=== PATIENT | male | born 1965 | race African-American/Black ===

== ENCOUNTER 2016-11-20 20:12 | Inpatient (IN) | payer BC ==
[2016-11-20 20:41] LABS: ABSOLUTE BASOPHILS # (AUTO) 0.1 10^3/uL (0.0-0.2); ABSOLUTE EOSINOPHILS # (AUTO) 0.2 10^3/uL (0.0-0.6); ABSOLUTE LYMPHOCYTES (AUTO) 1.3 10^3/uL (0.5-4.7); ABSOLUTE MONOCYTES (AUTO) 0.5 10^3/uL (0.1-1.4); ABSOLUTE NEUT (AUTO) 5.3 10^3/uL (1.7-8.2); BASOPHILS % (AUTO) 0.8 % (0-2); EOSINOPHILS % (AUTO) 2.9 % (0-6); HEMATOCRIT 32.1 % (37.9-51.0); HEMOGLOBIN 10.7 g/dL (13.5-17.0); LYMPHOCYTES % (AUTO) 18.2 % (13-45); MEAN CORPUSCULAR HEMOGLOBIN 31.5 pg (27.0-33.4); MEAN CORPUSCULAR HGB CONC 33.5 g/dL (32.0-36.0); MEAN CORPUSCULAR VOLUME 94 fl (80-97); MONOCYTES % (AUTO) 7.1 % (3-13); RED BLOOD COUNT 3.41 10^6/uL (4.35-5.55); RED CELL DISTRIBUTION WIDTH 13.8 % (11.5-14.0); WHITE BLOOD COUNT 7.4 10^3/uL (4.0-10.5)
[2016-11-20 20:52] LABS: ALANINE AMINOTRANSFERASE 65 U/L (21-72); ALBUMIN 3.3 g/dL (3.5-5.0); ALKALINE PHOSPHATASE 98 U/L (38-126); ANION GAP 10 (5-19); ASPARTATE AMINO TRANSFERASE 47 U/L (17-59); BILIRUBIN,TOTAL 0.6 mg/dL (0.2-1.3); BLOOD UREA NITROGEN 35 mg/dL (7-20); CALCIUM 8.9 mg/dL (8.4-10.2); CARBON DIOXIDE 25 mmol/L (22-30); CHLORIDE 105 mmol/L (98-107); CREATINE KINASE 114 U/L (55-170); CREATININE RESULT 3.71 mg/dL (0.52-1.25); GLUCOSE 97 mg/dL (75-110); POTASSIUM 3.6 mmol/L (3.6-5.0); SODIUM 140.1 mmol/L (137-145); TOTAL PROTEIN 6.1 g/dL (6.3-8.2)
[2016-11-20] MEDS ORDERED: NITROGLYCERIN/D5W 250 ML IV PRN (20:52)
--- NOTE | 2016-11-20 20:53 | ER Document Report ---
ED Respiratory Problem - General Chief Complaint: Breathing Difficulty Stated Complaint: SHORTNESS OF BREATH Time seen by provider: 20:53 Mode of Arrival: Ambulatory Information source: Patient TRAVEL OUTSIDE OF THE [place] IN LAST 30 DAYS: No - HPI Patient complains to provider of: Short of breath Onset: Other - 2-3 days Duration: Worse/persistent Quality of pain: No pain Short of Breath: Moderate Chest pain/discomfort: Tightness Cough: Productive Sputum amount: Small Sputum color: Clear Sputum consistency: Mucoid Associated symptoms: Difficulty breathing, Extertional dyspnea, Short of breath Similar symptoms previously: Yes Recently seen / treated by doctor: Yes Notes: Patient is a 51-year-old male with a history of hypertension, chronic kidney disease and pulmonary edema, who presents to the emergency room complaining of shortness of breath and difficulty breathing that's been going on for the past few days, he denies any chest pain, no fever, he does have a mild cough productive of clearish mucus, states his symptoms are worse when laying down flat, he was actually admitted to this hospital on 09/11/2016 for similar symptoms, was discharged with several prescriptions for medications which she admits to being noncompliant to, stating that they make him drowsy and he is unable to go to work, however he does admit to using cocaine and heroin approximately 2 days ago - Related Data Allergies/Adverse Reactions: No Known Allergies Allergy (Verified 09/11/16 01:11) Past Medical History - General Information source: Patient - Social History Smoking Status: Current Every Day Smoker Drug Abuse: Cocaine, Heroin Family History: CAD, COPD - Past Medical History Cardiac Medical History: Reports: Hx Hypertension - Immunizations Immunizations up to date: No Hx Diphtheria, Pertussis, Tetanus Vaccination: Yes Review of Systems - Review of Systems Constitutional: No symptoms reported EENT: No symptoms reported Cardiovascular: No symptoms reported Respiratory: See HPI Gastrointestinal: No symptoms reported Genitourinary: No symptoms reported Male Genitourinary: No symptoms reported Musculoskeletal: No symptoms reported Skin: No symptoms reported Hematologic/Lymphatic: No symptoms reported Neurological/Psychological: No symptoms reported -: Yes All other systems reviewed and negative Physical Exam - Vital signs Vitals: Temp 98.4 F 11/20/16 20:12 Interpretation: Hypertensive, Tachycardic, Tachypneic - General General appearance: Alert In distress: Mild - HEENT Head: Normocephalic, Atraumatic Eyes: Normal Pupils: PERRL - Respiratory Respiratory status: Labored, Tachypnea Chest status: Nontender Breath sounds: Nonproductive cough, Rales Chest palpation: Normal - Cardiovascular Rhythm: Regular, Tachycardia Heart sounds: Normal auscultation Murmur: No - Abdominal Inspection: Normal Distension: No distension Bowel sounds: Normal Tenderness: Nontender Organomegaly: No organomegaly - Back Back: Normal, Nontender - Extremities General upper extremity: Normal inspection, Nontender, Normal color, Normal ROM , Normal temperature General lower extremity: Normal inspection, Nontender, Normal color, Normal ROM , Normal temperature, Normal weight bearing. No: Barbara's sign - Neurological Neuro grossly intact: Yes Cognition: Normal Orientation: AAOx4 [place] Coma Scale Eye Opening: Spontaneous [place] Coma Scale Verbal: Oriented [place] Coma Scale Motor: Obeys Commands [place] Coma Scale Total: 15 Speech: Normal Motor strength normal: LUE, RUE, LLE, RLE Sensory: Normal - Psychological Associated symptoms: Normal affect, Normal mood - Skin Skin Temperature: Warm Skin Moisture: Dry Skin Color: Normal Course - Re-evaluation Re-evalutation: 11/21/16 03:39 Patient symptoms consistent with pulmonary edema, lemon imaging findings are consistent with this, he was placed on a nitroglycerin drip and discussed with the hospitalist who agreed to admit to the ICU for further evaluation and treatment - Vital Signs Vital signs: Temp Pulse Resp BP Pulse Ox 97.9 F 94 24 H 161/95 H 98 11/21/16 03:12 11/21/16 03:12 11/21/16 03:12 11/21/16 03:12 11/21/16 03:12 - Laboratory Result Diagrams: 11/20/16 20:25 11/20/16 20:25 Laboratory results interpreted by me: 11/20/16 11/20/16 11/20/16 20:25 20:25 20:25 RBC 3.41 L Hgb 10.7 L Hct 32.1 L BUN 35 H Creatinine 3.71 H Est GFR ( Amer) 21 L Est GFR (Non-Af Amer) 17 L NT-Pro-B Natriuret Pep 7400 H Total Protein 6.1 L Albumin 3.3 L Urine Protein 11/20/16 21:46 RBC Hgb Hct BUN Creatinine Est GFR ( Amer) Est GFR (Non-Af Amer) NT-Pro-B Natriuret Pep Total Protein Albumin Urine Protein >=500 H - Diagnostic Test Radiology reviewed: Image reviewed, Reports reviewed - Transfer of Care Care transferred to following provider: Dr. Cr Critical Care Note - Critical Care Note Total time excluding time spent on procedures (mins): 40 Comments: Patient with mild respiratory distress, hypertensive emergency, pulmonary edema , requiring nitroglycerin drip and admission to the ICU Discharge - Discharge Clinical Impression: Acute worsening of stage 3 chronic kidney disease, Cocaine abuse, Heroin abuse , Tobacco abuse, Hypertensive emergency Pulmonary edema Qualifiers: Chronicity: acute Qualified Code(s): J81.0 - Acute pulmonary edema Condition: Serious Disposition: ADMITTED INPATIENT Admitting Provider: Hospitalist Unit Admitted: [facility]
[2016-11-20 21:05] LABS: CREATINE KINASE MB 0.57 ng/mL (<4.55)
[2016-11-20 21:08] LABS: TROPONIN I 0.089 ng/mL
[2016-11-20] MEDS ORDERED: ACETAMINOPHEN 325 MG TABLET PO PRN (21:54)
[2016-11-20] MEDS ORDERED: ONDANSETRON HCL INJ/PF 4 MG/2 ML SDV IV PRN (21:55)
[2016-11-20] MEDS ORDERED: IPRATROPIUM/ALBUTEROL 0.5-2.5 MG/3 ML AMPUL NEB PRN (21:55)
[2016-11-20] MEDS ORDERED: NITROGLYCERIN 2% OINTMENT 1 GM PACKET TP ONE (21:55)
[2016-11-20] MEDS ORDERED: DIAZEPAM 5 MG TABLET PO PRN (21:59)
[2016-11-20] MEDS ORDERED: CLONIDINE HCL 0.2 MG TABLET PO SCH (22:00)
[2016-11-20 22:16] LABS: APPEARANCE,URINE CLEAR; BILIRUBIN,URINE NEGATIVE (NEGATIVE); GLUCOSE, URINE NEGATIVE (NEGATIVE); KETONES,URINE NEGATIVE (NEGATIVE); LEUKOCYTE ESTERASE,URINE NEGATIVE (NEGATIVE); NITRITE,URINE NEGATIVE (NEGATIVE); PROTEIN,URINE >=500 mg/dL (NEGATIVE); URINE SPECIFIC GRAVITY 1.013; UROBILINOGEN,URINE NEGATIVE mg/dL (<2.0)
[2016-11-20 22:32] LABS: URINE BARBITURATES SCREEN NEGATIVE; URINE METHADONE SCREEN NEGATIVE; URINE OPIATES LOW UNCONFIRMED POSITIVE; URINE PHENCYCLIDINE SCREEN NEGATIVE
[2016-11-20] MEDS: HEPARIN SOD (PORCINE) 5,000 UNIT/ML 1 ML SYRINGE SUBCUT SCH (23:07)
[2016-11-20 23:27] LABS: CREATINE KINASE MB 0.67 ng/mL (<4.55); TROPONIN I 0.086 ng/mL
[2016-11-21] MEDS ORDERED: DIAZEPAM INJ 10 MG/2 ML DISP.SYRIN ONE (00:11)
[2016-11-21] MEDS ORDERED: HYDRALAZINE HCL INJ/PF 20 MG/1 ML SDV ONE (00:23)
--- NOTE | 2016-11-21 04:13 | PDOC H&P ---
History of Present Illness Admission Date/PCP: 11/20/16 21:55 Patient complains of: Shortness of breath History of Present Illness: PHARAOH ROSENBAUM is a 51 year old male with a past medical history of hypertension , stage IV chronic kidney disease, tobacco dependence and polysubstance abuse. He been in his usual state of health until approximately 48 hours prior to presentation developing get severe shortness of breath following smoking of crack cocaine followed by heroin inhalation. He denies chest pain currently but presents with a blood pressure of 240/120, tachycardia and elevated BNP. He is started on IV nitroglycerin and BiPAP and referred to the hospitalist for admission. Patient otherwise admits medication noncompliance since his last discharge August 2016 when he was hospitalized for the same. Past Medical History Cardiac Medical History: Reports: Hypertension Psychiatric Medical History: Reports: Substance Abuse, Tobacco Dependency Social History Smoking Status: Current Every Day Smoker Cigarettes Packs Per Day: 1 Number of Years Smokin Frequency of Alcohol Use: Occasional Hx Recreational Drug Use: Yes Drugs: Cocaine, Heroin - Advance Directive Resuscitation Status: Full Code Family History Family History: CAD, COPD Parental Family History Reviewed: Yes Children Family History Reviewed: Yes Sibling(s) Family History Reviewed.: Yes Medication/Allergy Home Medications: Acetaminophen [Tylenol 325 mg Tablet] 650 mg PO Q6HP PRN tablet 09/13/16 Aspirin [Ecotrin 81 mg EC Tablet] 81 mg PO DAILY tabec 09/13/16 Clonidine HCl [Catapres 0.2 mg Tablet] 0.2 mg PO TID #90 tablet 09/13/16 Ferrous Sulfate [Feosol 325 mg Tablet] 325 mg PO DAILY@1500 #30 tablet 09/13/16 Allergies/Adverse Reactions: No Known Allergies Allergy (Verified 09/11/16 01:11) Review of Systems Constitutional: ABSENT: chills, fever(s), headache(s), weight gain, weight loss Eyes: ABSENT: visual disturbances Ears: ABSENT: hearing changes Cardiovascular: ABSENT: chest pain, dyspnea on exertion, edema, orthropnea, palpitations Respiratory: ABSENT: cough, hemoptysis Gastrointestinal: ABSENT: abdominal pain, constipation, diarrhea, hematemesis, hematochezia, nausea, vomiting Genitourinary: ABSENT: dysuria, hematuria Musculoskeletal: ABSENT: joint swelling Integumentary: ABSENT: rash, wounds Neurological: ABSENT: abnormal gait, abnormal speech, confusion, dizziness, focal weakness, syncope Psychiatric: ABSENT: anxiety, depression, homidical ideation, suicidal ideation Endocrine: ABSENT: cold intolerance, heat intolerance, polydipsia, polyuria Hematologic/Lymphatic: ABSENT: easy bleeding, easy bruising Physical Exam Vital Signs: Temp Pulse Resp BP Pulse Ox 97.9 F 94 24 H 161/95 H 98 11/21/16 03:12 11/21/16 03:12 11/21/16 03:12 11/21/16 03:12 11/21/16 03:12 Intake & Output 11/19/16 11/20/16 11/21/16 11:59 11:59 11:59 Weight 79.8 kg General appearance: PRESENT: cooperative, thin Head exam: PRESENT: atraumatic, normocephalic Eye exam: PRESENT: conjunctiva pink, EOMI, PERRLA. ABSENT: scleral icterus Ear exam: PRESENT: normal external ear exam Mouth exam: PRESENT: moist, tongue midline Neck exam: PRESENT: JVD. ABSENT: carotid bruit, lymphadenopathy, thyromegaly Respiratory exam: PRESENT: accessory muscle use, crackles, retraction, symmetrical, tachypnea. ABSENT: rhonchi, stridor, wheezes Cardiovascular exam: PRESENT: gallop, RRR, +S1, +S2, systolic murmur Pulses: PRESENT: normal dorsalis pedis pul Vascular exam: PRESENT: normal capillary refill GI/Abdominal exam: PRESENT: normal bowel sounds, soft. ABSENT: distended, guarding, mass, organolmegaly, rebound, tenderness Rectal exam: PRESENT: deferred Extremities exam: PRESENT: full ROM. ABSENT: calf tenderness, clubbing, pedal edema Neurological exam: PRESENT: alert, awake, oriented to person, oriented to place , oriented to time, oriented to situation, CN II-XII grossly intact. ABSENT: motor sensory deficit Psychiatric exam: PRESENT: appropriate affect, normal mood. ABSENT: homicidal ideation, suicidal ideation Skin exam: PRESENT: dry, intact, warm. ABSENT: cyanosis, rash Results Laboratory Results: 11/20/16 11/20/16 22:55 22:55 Creatine Kinase 79 CK-MB (CK-2) 0.67 Troponin I 0.086 Impressions: Chest X-Ray 11/20/16 20:14 IMPRESSION: Findings suggesting early pulmonary edema. Assessment & Plan - Diagnosis (1) Hypertensive emergency Is this a current diagnosis for this admission?: YesPlan: Continue IV nitroglycerin weaning to Nitropaste with Valium, clonidine, hydralazine and Norvasc. (2) Pulmonary edema Qualifiers: Chronicity: acute Qualified Code(s): J81.0 - Acute pulmonary edema Is this a current diagnosis for this admission?: YesPlan: Secondary to crack cocaine and heroin use resulting in hypertensive emergency please see #1 (3) Acute worsening of stage 3 chronic kidney disease Is this a current diagnosis for this admission?: YesPlan: Nonoliguric, Secondary to noncompliance and polysubstance abuse avoid nephrotoxic meds and doses reevaluate chemistry (4) Cocaine abuse Is this a current diagnosis for this admission?: YesPlan: Education and cessation counseling consider rehabilitation referral (5) Heroin abuse Is this a current diagnosis for this admission?: YesPlan: Education and cessation counseling consider rehabilitation referral - Time Time Spent: 30 to 50 Minutes - Inpatient Certification Medical Necessity: Need Close Monitoring Due to Risk of Patient Decompensation
[2016-11-21 05:30] LABS: ABSOLUTE BASOPHILS # (AUTO) 0.1 10^3/uL (0.0-0.2); ABSOLUTE EOSINOPHILS # (AUTO) 0.3 10^3/uL (0.0-0.6); ABSOLUTE LYMPHOCYTES (AUTO) 1.6 10^3/uL (0.5-4.7); ABSOLUTE MONOCYTES (AUTO) 0.5 10^3/uL (0.1-1.4); ABSOLUTE NEUT (AUTO) 4.7 10^3/uL (1.7-8.2); BASOPHILS % (AUTO) 0.8 % (0-2); EOSINOPHILS % (AUTO) 4.9 % (0-6); HEMATOCRIT 30.7 % (37.9-51.0); HEMOGLOBIN 10.3 g/dL (13.5-17.0); HGB HCT DIFFERENCE 0.2; LYMPHOCYTES % (AUTO) 21.9 % (13-45); MEAN CORPUSCULAR HEMOGLOBIN 31.8 pg (27.0-33.4); MEAN CORPUSCULAR HGB CONC 33.6 g/dL (32.0-36.0); MEAN CORPUSCULAR VOLUME 95 fl (80-97); MONOCYTES % (AUTO) 7.1 % (3-13); RED BLOOD COUNT 3.24 10^6/uL (4.35-5.55); RED CELL DISTRIBUTION WIDTH 13.9 % (11.5-14.0); SEGMENTED NEUTROPHILS % (AUTO) 65.3 % (42-78); WHITE BLOOD COUNT 7.2 10^3/uL (4.0-10.5)
[2016-11-21 05:50] LABS: ANION GAP 8 (5-19); BLOOD UREA NITROGEN 34 mg/dL (7-20); CARBON DIOXIDE 26 mmol/L (22-30); CHLORIDE 107 mmol/L (98-107); CREATINE KINASE 88 U/L (55-170); CREATININE RESULT 3.42 mg/dL (0.52-1.25); GLUCOSE 99 mg/dL (75-110); POTASSIUM 3.3 mmol/L (3.6-5.0); SODIUM 140.9 mmol/L (137-145)
[2016-11-21 05:59] LABS: CREATINE KINASE MB 0.5 ng/mL (<4.55); TROPONIN I 0.093 ng/mL
[2016-11-21] MEDS: HEPARIN SOD (PORCINE) 5,000 UNIT/ML 1 ML SYRINGE SUBCUT SCH ×3 (06:18→22:49)
--- NOTE | 2016-11-21 08:38 | EKG REPORT ---
SEVERITY:- ABNORMAL ECG - SINUS RHYTHM FIRST DEGREE AV BLOCK PROBABLE LEFT ATRIAL ABNORMALITY BORDERLINE LEFT AXIS DEVIATION PROBABLE ANTERIOR INFARCT, ACUTE BORDERLINE PROLONGED QT INTERVAL : Confirmed by: Cristiane Velarde 21-Nov-2016 08:37:39
--- NOTE | 2016-11-21 09:26 | PDOC PROGRESS REPORT ---
Subjective Progress Note for:: 11/21/16 Subjective:: Reports he feels less short of breath now. Physical Exam Vital Signs: Temp Pulse Resp BP Pulse Ox 98.0 F 97 20 167/94 H 95 11/21/16 07:23 11/21/16 07:23 11/21/16 07:23 11/21/16 07:23 11/21/16 07:23 Intake & Output 11/20/16 11/21/16 11/22/16 06:59 06:59 06:59 Intake Total 10 Balance 10 Weight 79.5 kg General appearance: PRESENT: no acute distress Eye exam: PRESENT: conjunctiva pink. ABSENT: scleral icterus Mouth exam: PRESENT: moist, tongue midline Neck exam: ABSENT: JVD Respiratory exam: PRESENT: clear to auscultation rob. ABSENT: rales, rhonchi, wheezes Cardiovascular exam: PRESENT: RRR. ABSENT: diastolic murmur, rubs, systolic murmur GI/Abdominal exam: PRESENT: normal bowel sounds, soft. ABSENT: distended, guarding, mass, organolmegaly, rebound, tenderness Extremities exam: ABSENT: calf tenderness, clubbing, pedal edema Psychiatric exam: PRESENT: flat affect Skin exam: PRESENT: dry, intact, warm. ABSENT: cyanosis, rash Results Laboratory Results: 11/21/16 04:55 11/21/16 04:55 11/21/16 11/21/16 04:55 04:55 WBC 7.2 RBC 3.24 L Hgb 10.3 L Hct 30.7 L MCV 95 MCH 31.8 MCHC 33.6 RDW 13.9 Plt Count 220 Seg Neutrophils % 65.3 Lymphocytes % 21.9 Monocytes % 7.1 Eosinophils % 4.9 Basophils % 0.8 Absolute Neutrophils 4.7 Absolute Lymphocytes 1.6 Absolute Monocytes 0.5 Absolute Eosinophils 0.3 Absolute Basophils 0.1 Sodium 140.9 Potassium 3.3 L Chloride 107 Carbon Dioxide 26 Anion Gap 8 BUN 34 H Creatinine 3.42 H Est GFR ( Amer) 23 L Est GFR (Non-Af Amer) 19 L Glucose 99 Calcium 9.0 11/20/16 11/20/16 11/21/16 22:55 22:55 04:55 Creatine Kinase 79 88 CK-MB (CK-2) 0.67 Troponin I 0.086 11/21/16 04:55 Creatine Kinase CK-MB (CK-2) 0.50 Troponin I 0.093 Impressions: Chest X-Ray 11/20/16 20:14 IMPRESSION: Findings suggesting early pulmonary edema. Assessment & Plan - Diagnosis (1) Hypertensive emergency Is this a current diagnosis for this admission?: YesPlan: The patient used crack and heroin and developed acute hypertensive emergency with resulting pulmonary edema. The patient was started on clonidine, hydralazine and Norvasc as well as nitroglycerin paste. His blood pressure has decreased and he reports that his breathing is back to normal. (2) Pulmonary edema Qualifiers: Chronicity: acute Qualified Code(s): J81.0 - Acute pulmonary edema Is this a current diagnosis for this admission?: YesPlan: This is improving with control his blood pressure (3) Acute worsening of stage 3 chronic kidney disease Is this a current diagnosis for this admission?: YesPlan: The patient has uncontrolled hypertension as the cause for his acute worsening. Hopefully with control his blood pressure his kidney function will improve. (4) Cocaine abuse Is this a current diagnosis for this admission?: YesPlan: he is encouraged to quit (5) Heroin abuse Is this a current diagnosis for this admission?: YesPlan: He is encouraged to quit (6) Tobacco abuse Is this a current diagnosis for this admission?: YesPlan: Patient is aware of the risk of smoking (7) Acute hypoxemic respiratory failure Is this a current diagnosis for this admission?: YesPlan: Secondary to hypertensive emergency with pulmonary edema. This is improving. (8) Anemia Qualifiers: Anemia type: unspecified type Qualified Code(s): D64.9 - Anemia, unspecified Is this a current diagnosis for this admission?: YesPlan: Most likely is anemia of chronic disease given his chronic renal failure. - Time Time Spent with patient: 25-34 minutes - Inpatient Certification Medical Necessity: Need Close Monitoring Due to Risk of Patient Decompensation - Plan Summary Plan Summary: We'll continue to monitor his blood pressure. He can be discharged once his pressures are in the normal range.
[2016-11-21] MEDS: DOCUSATE SODIUM 100 MG CAPSULE PO SCH ×2 (09:33→18:25)
[2016-11-21] MEDS: CLONIDINE HCL 0.2 MG TABLET PO SCH ×3 (09:34→18:25)
[2016-11-21] MEDS: ASPIRIN 81 MG TABLET, ENT COATED PO SCH (09:36)
[2016-11-21 11:31] LABS: CREATINE KINASE MB 0.53 ng/mL (<4.55); TROPONIN I 0.096 ng/mL
[2016-11-21] MEDS: FERROUS SULFATE 325 MG TABLET PO SCH (15:02)
[2016-11-21] MEDS ORDERED: NICOTINE 14 MG/24 HR PATCH.TD24 TD ONE (18:45)
[2016-11-22] MEDS ORDERED: CLONIDINE HCL 0.2 MG TABLET PO ONE (05:30)
[2016-11-22] MEDS: HEPARIN SOD (PORCINE) 5,000 UNIT/ML 1 ML SYRINGE SUBCUT SCH ×2 (05:38→14:50)
[2016-11-22 06:47] LABS: ABSOLUTE BASOPHILS # (AUTO) 0.1 10^3/uL (0.0-0.2); ABSOLUTE EOSINOPHILS # (AUTO) 0.4 10^3/uL (0.0-0.6); ABSOLUTE LYMPHOCYTES (AUTO) 1.5 10^3/uL (0.5-4.7); ABSOLUTE MONOCYTES (AUTO) 0.5 10^3/uL (0.1-1.4); ABSOLUTE NEUT (AUTO) 4.1 10^3/uL (1.7-8.2); BASOPHILS % (AUTO) 1.1 % (0-2); EOSINOPHILS % (AUTO) 5.5 % (0-6); HEMATOCRIT 29.3 % (37.9-51.0); HGB HCT DIFFERENCE 0.7; LYMPHOCYTES % (AUTO) 22.8 % (13-45); MEAN CORPUSCULAR HEMOGLOBIN 32.2 pg (27.0-33.4); MEAN CORPUSCULAR HGB CONC 34.2 g/dL (32.0-36.0); MEAN CORPUSCULAR VOLUME 94 fl (80-97); MONOCYTES % (AUTO) 7.4 % (3-13); RED BLOOD COUNT 3.11 10^6/uL (4.35-5.55); RED CELL DISTRIBUTION WIDTH 13.9 % (11.5-14.0); SEGMENTED NEUTROPHILS % (AUTO) 63.2 % (42-78); WHITE BLOOD COUNT 6.5 10^3/uL (4.0-10.5)
[2016-11-22 07:07] LABS: ANION GAP 11 (5-19); BLOOD UREA NITROGEN 30 mg/dL (7-20); CALCIUM 8.8 mg/dL (8.4-10.2); CARBON DIOXIDE 21 mmol/L (22-30); CHLORIDE 106 mmol/L (98-107); CREATININE RESULT 3.35 mg/dL (0.52-1.25); GLUCOSE 97 mg/dL (75-110); POTASSIUM 3.4 mmol/L (3.6-5.0); SODIUM 137.7 mmol/L (137-145)
[2016-11-22] MEDS: DOCUSATE SODIUM 100 MG CAPSULE PO SCH ×2 (09:47→18:16)
[2016-11-22] MEDS: ASPIRIN 81 MG TABLET, ENT COATED PO SCH (09:47)
[2016-11-22] MEDS: CLONIDINE HCL 0.2 MG TABLET PO SCH ×3 (09:47→18:16)
[2016-11-22] MEDS: NICOTINE 14 MG/24 HR PATCH.TD24 TD SCH (09:47)
--- NOTE | 2016-11-22 12:33 | PDOC PROGRESS REPORT ---
Subjective Progress Note for:: 11/22/16 Subjective:: Patient's shortness of breath is better. Still with paroxysmal nocturnal dyspnea. No chest pain at all. Still drinks urine output. No nausea or vomiting. No chills or fever. Minimal cough with scanty phlegm. Numbness noted in the left lower extremity. Physical Exam Vital Signs: Temp Pulse Resp BP Pulse Ox 97.2 F 88 16 151/95 H 97 11/22/16 11:20 11/22/16 11:43 11/22/16 11:43 11/22/16 11:20 11/22/16 11:43 Intake & Output 11/21/16 11/22/16 11/23/16 06:59 06:59 06:59 Intake Total 1956 Balance 1956 Weight 79.5 kg 80.3 kg General appearance: PRESENT: no acute distress, cooperative Head exam: PRESENT: normocephalic Eye exam: PRESENT: EOMI Mouth exam: PRESENT: moist, neck supple Neck exam: ABSENT: JVD Respiratory exam: PRESENT: rales - On both bases bilateral, unlabored. ABSENT: wheezes Cardiovascular exam: PRESENT: RRR. ABSENT: gallop GI/Abdominal exam: PRESENT: soft. ABSENT: distended, tenderness Extremities exam: ABSENT: pedal edema Neurological exam: PRESENT: alert, awake, oriented to situation Skin exam: PRESENT: dry, warm. ABSENT: cyanosis Results Laboratory Results: 11/22/16 05:44 11/22/16 05:44 11/22/16 11/22/16 05:44 05:44 WBC 6.5 RBC 3.11 L Hgb 10.0 L Hct 29.3 L MCV 94 MCH 32.2 MCHC 34.2 RDW 13.9 Plt Count 218 Seg Neutrophils % 63.2 Lymphocytes % 22.8 Monocytes % 7.4 Eosinophils % 5.5 Basophils % 1.1 Absolute Neutrophils 4.1 Absolute Lymphocytes 1.5 Absolute Monocytes 0.5 Absolute Eosinophils 0.4 Absolute Basophils 0.1 Sodium 137.7 Potassium 3.4 L Chloride 106 Carbon Dioxide 21 L Anion Gap 11 BUN 30 H Creatinine 3.35 H Est GFR ( Amer) 24 L Est GFR (Non-Af Amer) 19 L Glucose 97 Calcium 8.8 11/20/16 11/20/16 11/21/16 22:55 22:55 04:55 Creatine Kinase 79 88 CK-MB (CK-2) 0.67 Troponin I 0.086 11/21/16 11/21/16 11/21/16 04:55 10:36 10:36 Creatine Kinase 71 CK-MB (CK-2) 0.50 0.53 Troponin I 0.093 0.096 Impressions: Chest X-Ray 11/20/16 20:14 IMPRESSION: Findings suggesting early pulmonary edema. Assessment & Plan - Diagnosis (1) Acute hypoxemic respiratory failure Is this a current diagnosis for this admission?: Yes (2) Hypertensive emergency Is this a current diagnosis for this admission?: Yes (3) Pulmonary edema Qualifiers: Chronicity: acute Qualified Code(s): J81.0 - Acute pulmonary edema Is this a current diagnosis for this admission?: Yes (4) Hypokalemia Is this a current diagnosis for this admission?: Yes (5) Anemia of chronic disease Is this a current diagnosis for this admission?: Yes (6) Chronic kidney disease, stage IV (severe) Is this a current diagnosis for this admission?: Yes (7) Cocaine abuse Is this a current diagnosis for this admission?: Yes - Time Time Spent with patient: 25-34 minutes - Plan Summary Plan Summary: I am going to begin Lasix. Replace potassium and recheck level in the morning. Obtain MRI of the brain to rule out stroke. Continue current antihypertensive medications.
[2016-11-22] MEDS ORDERED: POTASSIUM CHLORIDE 10 MEQ TABLET.SA PO ONE (13:00)
[2016-11-22] MEDS: FERROUS SULFATE 325 MG TABLET PO SCH (14:45)
[2016-11-22] MEDS: FUROSEMIDE INJ/PF 40 MG/4 ML SDV IV SCH ×2 (14:50→22:21)
[2016-11-22] MEDS ORDERED: HYDRALAZINE HCL INJ/PF 20 MG/1 ML SDV IV PRN (19:11)
--- NOTE | 2016-11-22 19:23 | PDOC TRANSFER SUMMARY ---
General Admission Date/PCP: 11/20/16 21:55 Admission Date: 11/21/16 Transfer Date: 11/23/16 Accepting Facility: [facility] Accepting Physician: Dr. Baez Resuscitation Status: Full Code - Transfer Diagnosis (1) Intracranial hemorrhage Is this a current diagnosis for this admission?: Yes (2) Acute hypoxemic respiratory failure Is this a current diagnosis for this admission?: Yes (3) Hypertensive emergency Is this a current diagnosis for this admission?: Yes (4) Pulmonary edema Is this a current diagnosis for this admission?: Yes (5) Hypokalemia Is this a current diagnosis for this admission?: Yes (6) Anemia of chronic disease Is this a current diagnosis for this admission?: Yes (7) Chronic kidney disease, stage IV (severe) Is this a current diagnosis for this admission?: Yes (8) Cocaine abuse Is this a current diagnosis for this admission?: Yes - Transfer Medications Home Medications: Clonidine HCl [Clonidine HCl] 0.2 mg PO Q8 11/21/16 Transfer Medications: Current Medications Acetaminophen (Tylenol 325 Mg Tablet) 650 mg PO Q6HP PRN Stop: 12/20/16 21:53 Albuterol/Ipratropium (Duoneb 3 Ml Ampul) 3 ml NEB RTQ6HP PRN Stop: 12/20/16 21:54 Clonidine (Catapres 0.2 Mg Tablet) 0.2 mg PO TID [facility] Stop: 12/21/16 09:59 Last Admin: 11/22/16 18:16 Dose: 0.2 mg Diazepam (Valium 5 Mg Tablet) 5 mg PO Q8HP PRN PRN Reason: ANXIETY Stop: 11/27/16 21:58 Last Admin: 11/22/16 00:20 Dose: 5 mg Docusate Sodium (Colace 100 Mg Capsule) 100 mg PO BID [facility] Stop: 12/21/16 09:59 Last Admin: 11/22/16 18:16 Dose: 100 mg Ferrous Sulfate (Feosol 325 Mg Tablet) 325 mg PO DAILY@1500 [facility] Stop: 12/21/16 14:59 Last Admin: 11/22/16 14:45 Dose: 325 mg Furosemide (Lasix Inj/Pf 40 Mg/4 Ml Sdv) 40 mg IV Q8 [facility] Stop: 12/22/16 13:59 Last Admin: 11/22/16 14:50 Dose: 40 mg Nitroglycerin/Dextrose (Ntg Rtu 50 Mg/D5w 250 Ml Iv Premix Bottle) 250 mls @ 0 mls/hr IV CONTINUOUS PRN; Protocol; Titrate PRN Reason: THIS MED IS NOT "PRN" Stop: 12/20/16 20:51 Last Admin: 11/20/16 21:47 Dose: 250 ml Nicotine (Nicoderm 14 Mg/24 Hr Transdermal Patch) 1 each TD DAILY [facility] Stop: 12/22/16 09:59 Last Admin: 11/22/16 09:47 Dose: 1 each Ondansetron HCl (Zofran Inj/Pf 4 Mg/2 Ml Sdv) 4 mg IV Q8HP PRN Stop: 12/20/16 21:54 Norvasc 5mg PO daily. - Allergies Allergies/Adverse Reactions: No Known Allergies Allergy (Verified 09/11/16 01:11) - Diet/Activity Discharge Diet: Cardiac - Low-fat low-salt, Other (Comments) - Renal diet Hospital Course Hospital Course: The patient was admitted to the stepdown unit. The patient was placed on nitroglycerin drip. He was started on clonidine orally. Patient's blood pressure improved and the patient's shortness of breath likewise improved. Intravenous diuretic with Lasix was added. He has underlying chronic kidney disease and his creatinine improved when blood pressure control improved as well. However , the patient has complained of left lower extremity numbness and subtle weakness. An MRI of the brain did reveal intracranial hemorrhage on the right thalamic area. Patient did passed a swallowing screen and is able to ambulate. His antiplatelet therapy was discontinued , DVT prophylaxis changed from heparin to ALANA hose and SCDs. Because of the bleeding, he needs neurosurgical evaluation and therefore the patient was referred to [facility], [place] for transfer. Dr. Baez from the hospitalist service accepted the patient for transfer. On follow-up of blood pressure , still uncontrolled and Norvasc was added . The rest of the hospital stays unremarkable. Physical Exam Vital Signs: Temp Pulse Resp BP Pulse Ox 98.2 F 94 18 154/101 H 95 11/22/16 15:20 11/22/16 17:56 11/22/16 17:56 11/22/16 17:56 11/22/16 17:56 Intake & Output 11/21/16 11/22/16 11/23/16 06:59 06:59 06:59 Intake Total 1956 115 Balance 1956 Weight 79.5 kg 80.3 kg General appearance: PRESENT: no acute distress, cooperative Head exam: PRESENT: normocephalic Eye exam: PRESENT: EOMI Mouth exam: PRESENT: moist, neck supple Neck exam: ABSENT: JVD Respiratory exam: PRESENT: clear to auscultation rob - Anteriorly bilateral, rales - Minimal posteriorly on the bases Cardiovascular exam: PRESENT: RRR. ABSENT: gallop GI/Abdominal exam: PRESENT: soft. ABSENT: distended, tenderness Extremities exam: ABSENT: pedal edema Neurological exam: PRESENT: alert, awake, oriented to situation Skin exam: PRESENT: dry, warm. ABSENT: cyanosis Results Laboratory Results: 11/22/16 05:44 11/22/16 05:44 11/22/16 11/22/16 05:44 05:44 WBC 6.5 RBC 3.11 L Hgb 10.0 L Hct 29.3 L MCV 94 MCH 32.2 MCHC 34.2 RDW 13.9 Plt Count 218 Seg Neutrophils % 63.2 Lymphocytes % 22.8 Monocytes % 7.4 Eosinophils % 5.5 Basophils % 1.1 Absolute Neutrophils 4.1 Absolute Lymphocytes 1.5 Absolute Monocytes 0.5 Absolute Eosinophils 0.4 Absolute Basophils 0.1 Sodium 137.7 Potassium 3.4 L Chloride 106 Carbon Dioxide 21 L Anion Gap 11 BUN 30 H Creatinine 3.35 H Est GFR ( Amer) 24 L Est GFR (Non-Af Amer) 19 L Glucose 97 Calcium 8.8 11/20/16 11/20/16 11/21/16 22:55 22:55 04:55 Creatine Kinase 79 88 CK-MB (CK-2) 0.67 Troponin I 0.086 11/21/16 11/21/16 11/21/16 04:55 10:36 10:36 Creatine Kinase 71 CK-MB (CK-2) 0.50 0.53 Troponin I 0.093 0.096 11/22/16 12:58 Creatine Kinase CK-MB (CK-2) Troponin I 0.061 Impressions: Chest X-Ray 11/20/16 20:14 IMPRESSION: Findings suggesting early pulmonary edema. Head MRI 11/22/16 00:00 IMPRESSION: Small hemorrhagic acute infarct in the posterior right lateral thalamus, with surrounding edema extending into the posterior right internal capsule. Plan Discharge Plan: Transfer to tertiary facility for neuro surgical evaluation and management. Time Spent: Less than 30 Minutes
[2016-11-23] MEDS ORDERED: NICOTINE 14 MG/24 HR PATCH.TD24 TD ONE (03:45)
[2016-11-23] MEDS: FUROSEMIDE INJ/PF 40 MG/4 ML SDV IV SCH ×2 (05:35→13:03)
[2016-11-23 06:24] LABS: ANION GAP 13 (5-19); BLOOD UREA NITROGEN 33 mg/dL (7-20); CALCIUM 9.1 mg/dL (8.4-10.2); CARBON DIOXIDE 21 mmol/L (22-30); CHLORIDE 105 mmol/L (98-107); CREATININE RESULT 3.43 mg/dL (0.52-1.25); GLUCOSE 108 mg/dL (75-110); POTASSIUM 3.4 mmol/L (3.6-5.0); SODIUM 138.7 mmol/L (137-145)
[2016-11-23] MEDS: DOCUSATE SODIUM 100 MG CAPSULE PO SCH (09:56)
[2016-11-23] MEDS: CLONIDINE HCL 0.2 MG TABLET PO SCH ×2 (09:56→13:03)
[2016-11-23] MEDS: NICOTINE 14 MG/24 HR PATCH.TD24 TD SCH (09:56)
--- NOTE | 2016-11-23 13:59 | PDOC PROGRESS REPORT ---
Subjective Progress Note for:: 11/23/16 Subjective:: Patient's shortness of breath is much better. No chest pain at all. Still brings out urine and patient reported good output. No nausea or vomiting. No chills or fever. Minimal cough with scanty phlegm. Numbness noted in the left lower extremity still present. Mild headache otherwise no new deficits. No reported mental status changes. Physical Exam Vital Signs: Temp Pulse Resp BP Pulse Ox 98.8 F 92 16 179/122 H 98 11/23/16 08:16 11/23/16 09:47 11/23/16 09:47 11/23/16 08:16 11/23/16 09:47 Intake & Output 11/22/16 11/23/16 11/24/16 06:59 06:59 06:59 Intake Total 1956 2335 Balance 1956 2335 Weight 80.3 kg 82.2 kg General appearance: PRESENT: no acute distress, cooperative Head exam: PRESENT: normocephalic Eye exam: PRESENT: EOMI Mouth exam: PRESENT: moist, neck supple Neck exam: ABSENT: JVD Respiratory exam: PRESENT: clear to auscultation rob. ABSENT: rhonchi, wheezes Cardiovascular exam: PRESENT: RRR. ABSENT: gallop GI/Abdominal exam: PRESENT: soft. ABSENT: distended, tenderness Extremities exam: ABSENT: pedal edema Neurological exam: PRESENT: alert, awake, oriented to person, oriented to place , oriented to time, oriented to situation Skin exam: PRESENT: dry, warm. ABSENT: cyanosis Results Laboratory Results: 11/22/16 05:44 11/23/16 05:38 11/23/16 05:38 Sodium 138.7 Potassium 3.4 L Chloride 105 Carbon Dioxide 21 L Anion Gap 13 BUN 33 H Creatinine 3.43 H Est GFR ( Amer) 23 L Est GFR (Non-Af Amer) 19 L Glucose 108 Calcium 9.1 11/20/16 11/20/16 11/21/16 22:55 22:55 04:55 Creatine Kinase 79 88 CK-MB (CK-2) 0.67 Troponin I 0.086 11/21/16 11/21/16 11/21/16 04:55 10:36 10:36 Creatine Kinase 71 CK-MB (CK-2) 0.50 0.53 Troponin I 0.093 0.096 11/22/16 12:58 Creatine Kinase CK-MB (CK-2) Troponin I 0.061 Impressions: Chest X-Ray 11/20/16 20:14 IMPRESSION: Findings suggesting early pulmonary edema. Head MRI 11/22/16 00:00 IMPRESSION: Small hemorrhagic acute infarct in the posterior right lateral thalamus, with surrounding edema extending into the posterior right internal capsule. Assessment & Plan - Diagnosis (1) Intracranial hemorrhage Is this a current diagnosis for this admission?: Yes (2) Acute hypoxemic respiratory failure Is this a current diagnosis for this admission?: Yes (3) Hypertensive emergency Is this a current diagnosis for this admission?: Yes (4) Pulmonary edema Qualifiers: Chronicity: acute Qualified Code(s): J81.0 - Acute pulmonary edema Is this a current diagnosis for this admission?: Yes (5) Hypokalemia Is this a current diagnosis for this admission?: Yes (6) Anemia of chronic disease Is this a current diagnosis for this admission?: Yes (7) Chronic kidney disease, stage IV (severe) Is this a current diagnosis for this admission?: Yes (8) Cocaine abuse Is this a current diagnosis for this admission?: Yes - Time Time Spent with patient: 25-34 minutes - Plan Summary Plan Summary: We will add Norvasc to the treatment regimen. The transfer center in [facility] has been contacted and the patient has been accepted by Dr. Baez. Awaiting bed for transfer.
[2016-11-23 14:14] VITALS: BP 175/108
[2016-11-23] MEDS ORDERED: AMLODIPINE BESYLATE 5 MG TABLET PO ONE (14:30)
[2016-11-24] MEDS ORDERED: AMLODIPINE BESYLATE 5 MG TABLET PO SCH (10:00)
== END 2016-11-23 15:44 | disposition short-term general hospital (02) | DRG 64 ==
LOC: ER 20:12 → EH 21:55 → UNDOADMIN 22:10 → 3W 11-21 02:25
PROVIDERS: ADMIT Internal Medicine; ATTEND Internal Medicine
PROC: 5A09457 Assistance with Respiratory Ventilation, 24-96 Consecutive Hours, Continuous Positive Airway Pressure (ICD-10-PCS; principal; 2016-11-20)
DX: I62.9 Nontraumatic intracranial hemorrhage, unspecified (principal); J81.0 Acute pulmonary edema; J96.01 Acute respiratory failure with hypoxia; I16.1 Hypertensive emergency; N18.4 Chronic kidney disease, stage 4 (severe); I12.9 Hypertensive chronic kidney disease with stage 1 through stage 4 chronic kidney disease, or unspecified chronic kidney disease; D63.1 Anemia in chronic kidney disease; R20.0 Anesthesia of skin; F17.210 Nicotine dependence, cigarettes, uncomplicated; F14.10 Cocaine abuse, uncomplicated; E87.6 Hypokalemia; F11.10 Opioid abuse, uncomplicated; Z82.49 Family history of ischemic heart disease and other diseases of the circulatory system; Z79.82 Long term (current) use of aspirin; Z91.19 Patient's noncompliance with other medical treatment and regimen
CPT/HCPCS: 36415; 70551; 71010; 80048; 80053; 80307; 81001; 82550; 82553; 83880; 84484; 85025; 93005; 93010; 99291; J0360; J1644; J1940; J3360; J3490

== ENCOUNTER 2017-06-03 16:38 | Observation (INO) | payer SELFPAY ==
[2017-06-03] MEDS ORDERED: ASPIRIN 81 MG TABLET, CHEWABLE PO ONE (17:18)
[2017-06-03] MEDS ORDERED: NITROGLYCERIN 2% OINTMENT 1 GM PACKET TP ONE (17:19)
[2017-06-03] MEDS ORDERED: FUROSEMIDE INJ/PF 40 MG/4 ML SDV IV ONE (17:19)
--- NOTE | 2017-06-03 17:20 | ER Document Report ---
ED Medical Screen (RME) - General Chief Complaint: Breathing Difficulty Stated Complaint: DIFFICULTY BREATHING Time Seen by Provider: 06/03/17 17:18 TRAVEL OUTSIDE OF THE [place] IN LAST 30 DAYS: No - HPI Notes: 06/03/17 17:20 History of hypertension and heart failure coming in for shortness of breath patient states brown sputum production no fevers no chills patient states no blood pressure medication greater than 1 month. Denies chest pain - Related Data Allergies/Adverse Reactions: No Known Allergies Allergy (Verified 06/03/17 16:56) Past Medical History - Social History Chew tobacco use (# tins/day): No Frequency of alcohol use: Occasional Drug Abuse: Cocaine - Past Medical History Cardiac Medical History: Reports: Hx Congestive Heart Failure, Hx Hypertension Renal/ Medical History: Denies: Hx Peritoneal Dialysis - Immunizations Immunizations up to date: No Hx Diphtheria, Pertussis, Tetanus Vaccination: Yes Review of Systems - Review of Systems Respiratory: Short of breath, Wheezing Physical Exam - Vital signs Vitals: Temp Pulse Resp BP Pulse Ox 98.3 F 111 H 16 191/125 H 98 06/03/17 16:52 06/03/17 16:52 06/03/17 16:52 06/03/17 16:52 06/03/17 16:52 - Respiratory Breath sounds: Productive cough, Rales Course - Vital Signs Vital signs: Temp Pulse Resp BP Pulse Ox 98.3 F 111 H 16 191/125 H 98 06/03/17 16:52 06/03/17 16:52 06/03/17 17:08 06/03/17 16:52 06/03/17 16:52
[2017-06-03 17:47] LABS: ABSOLUTE BASOPHILS # (AUTO) 0.1 10^3/uL (0.0-0.2); ABSOLUTE EOSINOPHILS # (AUTO) 0.1 10^3/uL (0.0-0.6); ABSOLUTE LYMPHOCYTES (AUTO) 1.4 10^3/uL (0.5-4.7); ABSOLUTE MONOCYTES (AUTO) 0.5 10^3/uL (0.1-1.4); ABSOLUTE NEUT (AUTO) 5.1 10^3/uL (1.7-8.2); BASOPHILS % (AUTO) 1.1 % (0-2); EOSINOPHILS % (AUTO) 1.4 % (0-6); HEMATOCRIT 32.3 % (37.9-51.0); HEMOGLOBIN 11.2 g/dL (13.5-17.0); HGB HCT DIFFERENCE 1.3; LYMPHOCYTES % (AUTO) 19.7 % (13-45); MEAN CORPUSCULAR HEMOGLOBIN 32.8 pg (27.0-33.4); MEAN CORPUSCULAR HGB CONC 34.5 g/dL (32.0-36.0); MEAN CORPUSCULAR VOLUME 95 fl (80-97); MONOCYTES % (AUTO) 7.6 % (3-13); RED CELL DISTRIBUTION WIDTH 13.6 % (11.5-14.0); SEGMENTED NEUTROPHILS % (AUTO) 70.2 % (42-78); WHITE BLOOD COUNT 7.2 10^3/uL (4.0-10.5)
[2017-06-03 17:54] LABS: PROTHROMBIN TIME 13.7 SEC (11.4-15.4)
[2017-06-03 18:05] LABS: ALANINE AMINOTRANSFERASE 29 U/L (21-72); ALBUMIN 4.1 g/dL (3.5-5.0); ALKALINE PHOSPHATASE 101 U/L (38-126); ANION GAP 12 (5-19); ASPARTATE AMINO TRANSFERASE 20 U/L (17-59); BILIRUBIN,DIRECT 0.4 mg/dL (0.0-0.4); BILIRUBIN,TOTAL 0.8 mg/dL (0.2-1.3); BLOOD UREA NITROGEN 39 mg/dL (7-20); CALCIUM 9.5 mg/dL (8.4-10.2); CARBON DIOXIDE 23 mmol/L (22-30); CHLORIDE 106 mmol/L (98-107); CREATINE KINASE 123 U/L (55-170); CREATININE RESULT 4.45 mg/dL (0.52-1.25); GLUCOSE 77 mg/dL (75-110); MAGNESIUM 2.2 mg/dL (1.6-2.3); SODIUM 141.2 mmol/L (137-145); TOTAL PROTEIN 7.1 g/dL (6.3-8.2)
--- NOTE | 2017-06-03 18:06 | RADIOLOGY REPORT (SQ) ---
EXAM DESCRIPTION: CHEST SINGLE VIEW COMPLETED DATE/TIME: 06/03/2017 5:53 pm REASON FOR STUDY: sob COMPARISON: 11/20/2016 EXAM PARAMETERS: NUMBER OF VIEWS: One view. TECHNIQUE: Single frontal radiographic view of the chest acquired. RADIATION DOSE: NA LIMITATIONS: None. FINDINGS: LUNGS AND PLEURA: Re- demonstration of mild mixed interstitial and airspace opacities at t he lung bases. No pneumothorax or large pleural effusion evident. MEDIASTINUM AND HILAR STRUCTURES: No masses. Contour normal. HEART AND VASCULAR STRUCTURES: Stable cardiomegaly. Mildly increased vascularity. BONES: No acute findings. HARDWARE: None in the chest. OTHER: No other significant finding. IMPRESSION: Essentially stable radiographic appearance of the chest, suggesting mild persistent vers us recurrent pulmonary edema. TECHNICAL DOCUMENTATION: JOB ID: [id number]
--- NOTE | 2017-06-03 18:15 | ER Document Report ---
ED Respiratory Problem - General Mode of Arrival: Wheelchair Information source: Patient TRAVEL OUTSIDE OF THE [place] IN LAST 30 DAYS: No - HPI Similar symptoms previously: No Recently seen / treated by doctor: No <LAVONNE JOE - Last Filed: 06/03/17 19:16> <ROQUE BE - Last Filed: 06/03/17 19:58> - General Chief Complaint: Breathing Difficulty Stated Complaint: DIFFICULTY BREATHING Time Seen by Provider: 06/03/17 17:12 Notes: Patient is a 51 year old male presenting to the emergency department for shortness of breath and cough. Patient states his shortness of breath has been present for the past few months and has worsened with his cough over the past few days. Patient states he has brown sputum and he has not been able to sleep well. Patient denies any chest pain, chills, fever, or other symptoms. Patient has a history of hypertension, CHF, and stage IV renal failure. Patient states his PCP is Dr. Goss but states he hasn't seen him for some time now since he lost his insurance. Patient states he has been out of his medications for hypertension for 1-2 months. Patient has a history of cocaine, heroin, and prescription drug use. Patient was admitted for similar symptoms and CHF exacerbation in November. At this time the patient was found to have a bleed over his right thalamus and he was found to be positive for cocaine and opiates. Patient has no known drug allergies. (LAVONNE JOE) - Related Data Allergies/Adverse Reactions: No Known Allergies Allergy (Verified 06/03/17 16:56) Past Medical History - General Information source: Patient - Social History Smoking Status: Current Every Day Smoker Chew tobacco use (# tins/day): No Smoking Education Provided: No Frequency of alcohol use: Occasional Drug Abuse: Cocaine, Heroin, Prescription drugs Family History: CAD, COPD Patient has suicidal ideation: No Patient has homicidal ideation: No - Past Medical History Cardiac Medical History: Reports: Hx Congestive Heart Failure, Hx Hypertension Surgical Hx: Negative - Immunizations Immunizations up to date: No Hx Diphtheria, Pertussis, Tetanus Vaccination: Yes <LAVONNE JOE - Last Filed: 06/03/17 19:16> Review of Systems - Review of Systems Constitutional: No symptoms reported. denies: Chills, Fever EENT: No symptoms reported Cardiovascular: No symptoms reported. denies: Chest pain Respiratory: Cough, Short of breath, Sputum Gastrointestinal: No symptoms reported Genitourinary: No symptoms reported Male Genitourinary: No symptoms reported Musculoskeletal: No symptoms reported Skin: No symptoms reported Hematologic/Lymphatic: No symptoms reported Neurological/Psychological: No symptoms reported -: Yes All other systems reviewed and negative <LAVONNE JOE - Last Filed: 06/03/17 19:16> Physical Exam - Vital signs Interpretation: Hypertensive, Tachycardic, Tachypneic <LAVONNE JOE - Last Filed: 06/03/17 19:16> <ROQUE BE - Last Filed: 06/03/17 19:58> - Vital signs Vitals: Temp Pulse Resp BP Pulse Ox 98.3 F 111 H 16 191/125 H 98 06/03/17 16:52 06/03/17 16:52 06/03/17 16:52 06/03/17 16:52 06/03/17 16:52 - Notes Notes: GENERAL: Alert, interacts well. Mild distress. HEAD: Normocephalic, atraumatic. EYES: Appear normal. Pupils equal, round, and reactive to light. ENT: Moist mucus membranes, tongue midline. NECK: Full range of motion. Supple. Trachea midline. LUNGS: Diffuse rales throughout. Tachypneic. No respiratory distress. HEART: Tachycardia. Regular rhythm. No murmurs, gallops, or rubs. ABDOMEN: Soft, non-tender. Non-distended. Normal bowel sounds. EXTREMITIES: Moves all 4 extremities spontaneously. Normal strength. No edema. NEUROLOGICAL: Alert and oriented x3. Normal speech. No focal neurological deficits. GCS 15. PSYCH: Normal affect, normal mood. SKIN: Warm, dry, normal turgor. No rashes or lesions noted. (LAVONNE JOE) Course - Laboratory Result Diagrams: 06/03/17 17:34 06/03/17 17:34 <LAVONNE JOE - Last Filed: 06/03/17 19:16> - Laboratory Result Diagrams: 06/03/17 17:34 06/03/17 17:34 - Diagnostic Test Radiology reviewed: Image reviewed, Reports reviewed - Pulmonary edema - EKG Interpretation by Tn EKG shows normal: Sinus rhythm Rate: Tachycardia - 107 [place]/QRS: Left axis deviation Voltage: Consistant with LVH P Waves: LAE When compared to previous EKG there are: No significant change - Consults Dr. Cr Time consulted: 19:55 Consulted provider: will come to ER - IMCU admit <ROQUE BE - Last Filed: 06/03/17 19:58> - Vital Signs Vital signs: Temp Pulse Resp BP Pulse Ox 98.3 F 111 H 25 H 199/130 H 98 06/03/17 16:52 06/03/17 16:52 06/03/17 19:00 06/03/17 19:00 06/03/17 19:00 - Laboratory Laboratory results interpreted by me: 06/03/17 06/03/17 06/03/17 17:34 17:34 17:34 RBC 3.40 L Hgb 11.2 L Hct 32.3 L BUN 39 H Creatinine 4.45 H Est GFR ( Amer) 17 L Est GFR (Non-Af Amer) 14 L NT-Pro-B Natriuret Pep 7430 H Urine Protein 06/03/17 18:40 RBC Hgb Hct BUN Creatinine Est GFR ( Amer) Est GFR (Non-Af Amer) NT-Pro-B Natriuret Pep Urine Protein 100 H Critical Care Note - Critical Care Note Total time excluding time spent on procedures (mins): 35 <ROQUE BE - Last Filed: 06/03/17 19:58> Discharge <LAVONNE JOE - Last Filed: 06/03/17 19:16> - Discharge Admitting Provider: Hospitalist Unit Admitted: IMCU <ROQUE BE - Last Filed: 06/03/17 19:58> - Discharge Clinical Impression: Hypertensive emergency, Cocaine abuse, Chronic kidney disease, stage IV (severe ), Respiratory distress Pulmonary edema Qualifiers: Chronicity: acute Qualified Code(s): J81.0 - Acute pulmonary edema Condition: Fair Disposition: ADMITTED INPATIENT Scribe Attestation: 06/03/17 19:56 I personally performed the services described in the documentation, reviewed and edited the documentation which was dictated to the scribe in my presence, and it accurately records my words and actions. (ROQUE BE) Scribe Documentation - Scribe Written by Scribe:: LavonneJhon See 06/03/2017 18:22 acting as scribe for :: Travon <LAVONNE JOE - Last Filed: 06/03/17 19:16>
[2017-06-03 18:17] LABS: CREATINE KINASE MB 1.23 ng/mL (<4.55)
[2017-06-03 18:20] LABS: TROPONIN I 0.121 ng/mL
[2017-06-03] MEDS ORDERED: HYDRALAZINE HCL INJ/PF 20 MG/1 ML SDV IV ONE ×2 (18:24→19:46)
[2017-06-03 19:07] LABS: APPEARANCE,URINE CLEAR; BILIRUBIN,URINE NEGATIVE (NEGATIVE); GLUCOSE, URINE NEGATIVE (NEGATIVE); KETONES,URINE NEGATIVE (NEGATIVE); LEUKOCYTE ESTERASE,URINE NEGATIVE (NEGATIVE); NITRITE,URINE NEGATIVE (NEGATIVE); PROTEIN,URINE 100 mg/dL (NEGATIVE); URINE SPECIFIC GRAVITY 1.008; UROBILINOGEN,URINE NEGATIVE mg/dL (<2.0)
[2017-06-03 19:36] LABS: URINE BARBITURATES SCREEN NEGATIVE; URINE METHADONE SCREEN NEGATIVE; URINE OPIATES LOW NEGATIVE; URINE PHENCYCLIDINE SCREEN NEGATIVE
[2017-06-03] MEDS ORDERED: MAGNESIUM HYDROXIDE SUSP 30 ML UDCUP PO PRN (21:42)
[2017-06-03] MEDS ORDERED: ACETAMINOPHEN 325 MG TABLET PO PRN (21:42)
[2017-06-03] MEDS ORDERED: NORMAL SALINE 1000 ML 1,000 ML IV ONE (21:45)
[2017-06-03] MEDS ORDERED: TEMAZEPAM 15 MG CAPSULE PO ONE (21:45)
[2017-06-03] MEDS ORDERED: HYDRALAZINE HCL INJ/PF 20 MG/1 ML SDV IV PRN (21:46)
[2017-06-03] MEDS ORDERED: AMLODIPINE BESYLATE 5 MG TABLET PO ONE (22:00)
--- NOTE | 2017-06-03 22:04 | EKG REPORT ---
SEVERITY:- ABNORMAL ECG - SINUS TACHYCARDIA LEFT ATRIAL ABNORMALITY LEFT AXIS DEVIATION LEFT VENTRICULAR HYPERTROPHY ANTERIOR Q WAVES, POSSIBLY DUE TO LVH : Confirmed by: Cristiane Velarde 03-Jun-2017 22:04:07
[2017-06-03] MEDS: HEPARIN SOD (PORCINE) 5,000 UNIT/ML 1 ML SYRINGE SUBCUT SCH (22:38)
[2017-06-04] MEDS: HEPARIN SOD (PORCINE) 5,000 UNIT/ML 1 ML SYRINGE SUBCUT SCH ×3 (05:18→21:08)
--- NOTE | 2017-06-04 05:42 | PDOC H&P ---
History of Present Illness Admission Date/PCP: 06/03/17 21:42 Patient complains of: Shortness of breath History of Present Illness: PHARAOH ROSENBAUM is a 51 year old male with a past medical history of hypertension , stage IV chronic kidney disease, tobacco dependence and polysubstance abuse. He been in his usual state of health until 24 hours prior to presentation developing severe shortness of breath following smoking crack cocaine. He denies chest pain currently but presents with a blood pressure greater than 200 systolic, tachycardia and elevated BNP. Chest x-ray reveals pulmonary edema and he is started on Nitropaste, hydralazine and Lasix. He is referred to the hospitalist for admission. Patient denies regular medication use. Past Medical History Cardiac Medical History: Reports: Congestive Heart Failure, Hypertension Renal/ Medical History: Reports: Chronic Kidney Disease Psychiatric Medical History: Reports: Substance Abuse, Tobacco Dependency Social History Information Source: Patient Smoking Status: Current Every Day Smoker Cigarettes Packs Per Day: 0.5 Number of Years Smokin Frequency of Alcohol Use: Occasional Hx Recreational Drug Use: No Drugs: Cocaine Family History Family History: CAD, COPD Parental Family History Reviewed: Yes Children Family History Reviewed: Yes Sibling(s) Family History Reviewed.: Yes Medication/Allergy Home Medications: No Home Medications 06/03/17 Allergies/Adverse Reactions: No Known Allergies Allergy (Verified 06/03/17 16:56) Review of Systems Constitutional: ABSENT: chills, fever(s), headache(s), weight gain, weight loss Eyes: ABSENT: visual disturbances Ears: ABSENT: hearing changes Cardiovascular: ABSENT: chest pain, dyspnea on exertion, edema, orthropnea, palpitations Respiratory: ABSENT: cough, hemoptysis Gastrointestinal: ABSENT: abdominal pain, constipation, diarrhea, hematemesis, hematochezia, nausea, vomiting Genitourinary: ABSENT: dysuria, hematuria Musculoskeletal: ABSENT: joint swelling Integumentary: ABSENT: rash, wounds Neurological: ABSENT: abnormal gait, abnormal speech, confusion, dizziness, focal weakness, syncope Psychiatric: ABSENT: anxiety, depression, homidical ideation, suicidal ideation Endocrine: ABSENT: cold intolerance, heat intolerance, polydipsia, polyuria Hematologic/Lymphatic: ABSENT: easy bleeding, easy bruising Physical Exam Vital Signs: Temp Pulse Resp BP Pulse Ox 98.4 F 107 H 20 177/120 H 96 06/04/17 03:30 06/04/17 03:30 06/04/17 03:30 06/04/17 03:30 06/04/17 03:30 Intake & Output 06/02/17 06/03/17 06/04/17 11:59 11:59 11:59 Intake Total 100 Output Total 0 Balance 100 Weight 77.8 kg General appearance: PRESENT: cooperative, mild distress, thin Head exam: PRESENT: atraumatic Eye exam: PRESENT: conjunctiva pink, EOMI, PERRLA. ABSENT: scleral icterus Ear exam: PRESENT: normal external ear exam Mouth exam: PRESENT: moist, tongue midline Neck exam: ABSENT: carotid bruit, JVD, lymphadenopathy, thyromegaly Respiratory exam: PRESENT: accessory muscle use, prolonged expiratory phas, retraction, symmetrical, tachypnea. ABSENT: rhonchi, stridor, wheezes Cardiovascular exam: PRESENT: gallop, RRR, +S1, +S2, systolic murmur Pulses: PRESENT: normal dorsalis pedis pul Vascular exam: PRESENT: normal capillary refill GI/Abdominal exam: PRESENT: normal bowel sounds, soft. ABSENT: distended, guarding, mass, organolmegaly, rebound, tenderness Rectal exam: PRESENT: deferred Extremities exam: PRESENT: full ROM. ABSENT: calf tenderness, clubbing, pedal edema Neurological exam: PRESENT: alert, awake, oriented to person, oriented to place , oriented to time, oriented to situation, CN II-XII grossly intact. ABSENT: motor sensory deficit Psychiatric exam: PRESENT: appropriate affect, normal mood. ABSENT: homicidal ideation, suicidal ideation Skin exam: PRESENT: dry, intact, warm. ABSENT: cyanosis, rash Results Laboratory Results: 06/03/17 22:20 Troponin I 0.122 Impressions: Chest X-Ray 06/03/17 17:18 IMPRESSION: Essentially stable radiographic appearance of the chest, suggesting mild persistent versus recurrent pulmonary edema. Assessment & Plan - Diagnosis (1) Hypertensive emergency Is this a current diagnosis for this admission?: Yes Plan: Secondary to crack cocaine abuse. Benzodiazepine, IV nitroglycerin considered, IV Lasix, hydralazine, clonidine and education. (2) Pulmonary edema Qualifiers: Chronicity: acute Qualified Code(s): J81.0 - Acute pulmonary edema (3) Chronic kidney disease, stage IV (severe) Is this a current diagnosis for this admission?: Yes Plan: Secondary to chronic and sustained hypertension, nonoliguric avoid nephrotoxic meds and doses consider nephrology consultation if not returning to baseline. (4) Cocaine abuse Is this a current diagnosis for this admission?: Yes Plan: Benzodiazepine, education and avoidance of beta-harjeet. - Time Time Spent: 30 to 50 Minutes - Inpatient Certification Medical Necessity: Need Close Monitoring Due to Risk of Patient Decompensation
[2017-06-04] MEDS ORDERED: CLONIDINE HCL 0.2 MG TABLET PO SCH (05:45)
[2017-06-04 06:14] LABS: ANION GAP 11 (5-19); BLOOD UREA NITROGEN 38 mg/dL (7-20); CALCIUM 8.9 mg/dL (8.4-10.2); CARBON DIOXIDE 22 mmol/L (22-30); CHLORIDE 108 mmol/L (98-107); CREATININE RESULT 4.24 mg/dL (0.52-1.25); GLUCOSE 118 mg/dL (75-110); POTASSIUM 3.3 mmol/L (3.6-5.0); SODIUM 140.7 mmol/L (137-145)
[2017-06-04] MEDS ORDERED: POTASSIUM CHLORIDE 10 MEQ TABLET.SA PO ONE (10:00)
[2017-06-04] MEDS ORDERED: AMLODIPINE BESYLATE 5 MG TABLET PO SCH ×2 (10:00)
--- NOTE | 2017-06-04 10:13 | PROGRESS NOTE E ---
Progress Note NAME: PHARAOH ORBI : 1965 AGE: 51Y DATE: 06/04/2017 ROOM: [facility] SUBJECTIVE: The patient is a 51-year-old male, who has a past medical history significant for hypertension, chronic kidney disease stage 4 with creatine of 3.3-3.5. He follows with Dr. Thompson. He has tobacco abuse, polysubstance abuse, history of intracranial bleed in the past in November of last year and he was transferred to [facility]. The patient came to the emergency room with the chief complaint of difficulty breathing. He was found to have hypertensive urgency and chest x-ray showed bilateral infiltrates suggestive of pulmonary edema. He received Lasix and hydralazine, as well as nitroglycerin paste. He also had some chest pain and it resolved. He had slightly elevated troponin. His blood pressure is better controlled now. The patient ran out of his medication and he does not take any medications, but he is better now. Blood pressure is around 150/90. The last blood pressure 155/91. He is on now clonidine 0.2 mg every 6 hours, amlodipine 5 mg, and hydralazine p.r.n. Last time when he was discharged, the patient was supposed to take clonidine 0.2 mg 3 times a day. OBJECTIVE: GENERAL: The patient is lying in bed, comfortable, not in distress. VITAL SIGNS: Blood pressure 155/91, heart rate 102, temperature 98, respirations 16, saturation 96% on room air. HEAD: Normocephalic, atraumatic. Pupils are equal, round, reactive to light and accommodation bilaterally. Extraocular movements intact. EARS: Tympanic membranes intact bilaterally. No discharge from the ears. NOSE: No discharge from the nose. NECK: Supple. No JVD. No thyromegaly. No lymphadenopathy. CARDIOVASCULAR: Normal S1, S2. Regular rate and rhythm. No murmur. No gallop. RESPIRATORY: Clear. ABDOMEN: Soft. MUSCULOSKELETAL: No edema. NEUROLOGICAL: Awake, alert. SKIN: No rash. LABORATORY DATA: White blood count 7.2, hemoglobin 11.2, hematocrit 32. Sodium 140, potassium 3.3, creatinine 4.2. Chest x-ray with pulmonary edema. ASSESSMENT: 1. MALIGNANT HYPERTENSION OR HYPERTENSIVE URGENCY. 2. ACUTE KIDNEY INJURY/CHRONIC KIDNEY DISEASE STAGE 4, worsening kidney function due to uncontrolled hypertension. 3. PULMONARY EDEMA FROM WORSENING KIDNEY FUNCTION. Received 1 dose of Lasix in the ER. 4. HISTORY OF INTRACRANIAL BLEED IN THE PAST. 5. POLYSUBSTANCE ABUSE. 6. TOBACCO DEPENDENCE. PLAN: 1. The patient's blood pressure is better controlled now. His blood pressure is much better. We will change clonidine to 0.2 mg 3 times a day. Increase his Norvasc to 10 mg daily. We will hydralazine also 25 mg twice a day. 2. We will order intact PTH, vitamin D, iron studies, ultrasound of the kidney. 3. Replace his potassium with 20 mEq of KCL p.o. daily. 4. Nephrology consult in the morning. The patient follows with Dr. Thompson. Probably he may need preparation for dialysis. 5. The patient had a normal echo last year. His ejection fraction was around 60 and there is no diastolic heart failure. DICTATING PHYSICIAN: BORA CHU M.D. [id number] PHY#: [id number] ID: [id number] JOB#: [id number] ACCT: [id number] cc: >
[2017-06-04] MEDS: HYDRALAZINE HCL 25 MG TABLET PO SCH ×2 (10:55→17:16)
[2017-06-04] MEDS: AMLODIPINE BESYLATE 10 MG TABLET PO SCH (10:55)
[2017-06-04] MEDS: DOCUSATE SODIUM 100 MG CAPSULE PO SCH ×2 (10:57→13:18)
--- NOTE | 2017-06-04 14:44 | RADIOLOGY REPORT (SQ) ---
EXAM DESCRIPTION: U/S RETROPERITON (RENAL/AORTA) COMPLETED DATE/TIME: 06/04/2017 2:32 pm REASON FOR STUDY: CKD-4 COMPARISON: 03/05/2010. TECHNIQUE: Dynamic and static grayscale images acquired of the kidneys and bladder and recorded on P ACS. Additional selected color Doppler and spectral images recorded. LIMITATIONS: None. FINDINGS: RIGHT KIDNEY: Normal size. Slight increased echogenicity. 3.5 cm cortical cyst. No s olid or suspicious masses. No hydronephrosis. No calcifications. LEFT KIDNEY: Normal size. Slight increased echogenicity. 2.8 cm cortical cyst. No solid or susp icious masses. No hydronephrosis. No calcifications. BLADDER: No masses. OTHER FINDINGS: No other significant finding. IMPRESSION: SLIGHT INCREASED ECHOGENICITY OF THE RENAL PARENCHYMA LIKELY DUE TO CHRONIC RENAL DISEAS E. CORTICAL CYSTS IN BOTH KIDNEYS. NO HYDRONEPHROSIS OR OTHER SIGNIFICANT FINDINGS. TECHNICAL DOCUMENTATION: JOB ID: [id number]- All Rights Reserved
[2017-06-04] MEDS: CLONIDINE HCL 0.2 MG TABLET PO SCH ×2 (15:01→21:08)
[2017-06-04] MEDS ORDERED: FUROSEMIDE 40 MG TABLET PO ONE (17:15)
[2017-06-04] MEDS ORDERED: CARVEDILOL 12.5 MG TABLET PO ONE (18:00)
[2017-06-05 04:43] LABS: ABSOLUTE BASOPHILS # (AUTO) 0.1 10^3/uL (0.0-0.2); ABSOLUTE EOSINOPHILS # (AUTO) 0.3 10^3/uL (0.0-0.6); ABSOLUTE LYMPHOCYTES (AUTO) 1.7 10^3/uL (0.5-4.7); ABSOLUTE MONOCYTES (AUTO) 0.4 10^3/uL (0.1-1.4); ABSOLUTE NEUT (AUTO) 3.2 10^3/uL (1.7-8.2); BASOPHILS % (AUTO) 1.3 % (0-2); EOSINOPHILS % (AUTO) 5.2 % (0-6); HEMATOCRIT 28.1 % (37.9-51.0); HEMOGLOBIN 9.5 g/dL (13.5-17.0); HGB HCT DIFFERENCE 0.4; LYMPHOCYTES % (AUTO) 30.3 % (13-45); MEAN CORPUSCULAR HEMOGLOBIN 32.5 pg (27.0-33.4); MEAN CORPUSCULAR HGB CONC 33.8 g/dL (32.0-36.0); MEAN CORPUSCULAR VOLUME 96 fl (80-97); MONOCYTES % (AUTO) 7.8 % (3-13); RED BLOOD COUNT 2.92 10^6/uL (4.35-5.55); RED CELL DISTRIBUTION WIDTH 13.4 % (11.5-14.0); SEGMENTED NEUTROPHILS % (AUTO) 55.4 % (42-78); WHITE BLOOD COUNT 5.7 10^3/uL (4.0-10.5)
[2017-06-05 04:57] LABS: ALBUMIN 2.9 g/dL (3.5-5.0); ANION GAP 9 (5-19); BLOOD UREA NITROGEN 32 mg/dL (7-20); CALCIUM 8.6 mg/dL (8.4-10.2); CARBON DIOXIDE 21 mmol/L (22-30); CHLORIDE 108 mmol/L (98-107); GLUCOSE 109 mg/dL (75-110); PHOSPHORUS 4.7 mg/dL (2.5-4.5); POTASSIUM 3.3 mmol/L (3.6-5.0); SODIUM 138.2 mmol/L (137-145)
[2017-06-05] MEDS: CLONIDINE HCL 0.2 MG TABLET PO SCH ×2 (05:32→13:40)
[2017-06-05] MEDS: HEPARIN SOD (PORCINE) 5,000 UNIT/ML 1 ML SYRINGE SUBCUT SCH ×2 (05:32→13:41)
[2017-06-05] MEDS ORDERED: CARVEDILOL 12.5 MG TABLET PO SCH (08:00)
[2017-06-05] MEDS: AMLODIPINE BESYLATE 10 MG TABLET PO SCH (09:15)
[2017-06-05] MEDS: HYDRALAZINE HCL 25 MG TABLET PO SCH (09:15)
[2017-06-05] MEDS ORDERED: FUROSEMIDE 40 MG TABLET PO SCH (10:00)
--- NOTE | 2017-06-05 10:01 | Physician Advisory Note ---
Physician Advisor ProgressNote .: [facility] I have reviewed the medical record for this patient. Physician Advisor Statement: Please document, if you agree: 1. "Hypertensive emergency, with associated ALEXANDER & pulmonary edema" - if there are (+)s/s from the severe HTN, it's hypertensive emergency. - If there are no s/s from the severe HTN, it's hypertensive urgency. - "malig HTN" is old term now coded same as "essential HTN" 2. Status: Pt still appears to have ARF; Cr still worse than baseline of 3.4 in November. Licensed Club Manager may be needed. BPs are improving now but still as high as 177/120 this AM. If attending believes pt is not yet clinically safe for d/c, please document: << "I am concerned about because " >> , painting the picture of why he can't safely go home yet, and consider change to Inpatient status. Thanks! CK
[2017-06-05 12:42] VITALS: BP 144/94
[2017-06-05] MEDS ORDERED: FERROUS SULFATE 325 MG TABLET PO ONE (13:00)
[2017-06-05] MEDS ORDERED: POTASSIUM CHLORIDE 10 MEQ TABLET.SA PO ONE (13:00)
--- NOTE | 2017-06-05 13:13 | PDOC CONSULTATION ---
Consultation Consult Date: 06/05/17 Consult reason:: ALEXANDER History of Present Illness Admission Date/PCP: 06/03/17 21:42 History of Present Illness: PHARAOH ROSENBAUM is a 51 year old male with a past medical history of hypertension , stage IV chronic kidney disease, tobacco dependence and polysubstance abuse. Prior to coming to the hospital he had smoked some crack cocaine. Shortly after smoking that he became SOB and went to the ER. In the ER he was found to have a bp in the 200s with tachycardia and an elevated BNP. A chest x-ray done that showed pulmonary edema. He was give nitropaste, hydralazine and lasix. He was admitted and started on carvedilol and clonidine. At the time of todays visit his blood pressure is well controlled. He denies SOB, chest pain, a headache or any focal deficits. He does admit to noncompliance with medications. He does admit to decrease appetite but denies nausea and vomiting. Past Medical History Cardiac Medical History: Reports: Hypertension-primary, Hypertension- secondary Renal/ Medical History: Reports: Chronic Kidney Disease Stage IV Psychiatric Medical History: Reports: Substance Abuse, Tobacco Dependency Past Surgical History Past Surgical History: Reports: None Social History Smoking Status: Current Every Day Smoker Cigarettes Packs Per Day: 0.5 Number of Years Smokin Frequency of Alcohol Use: Occasional Hx Recreational Drug Use: No Drugs: Cocaine Family History Family History: End Stage Renal Disease, Hypertension Parental Family History Reviewed: Yes - mother was on HD for hypertension and at age 40 Children Family History Reviewed: No Sibling(s) Family History Reviewed.: No Medication/Allergy Home Medications: Amlodipine Besylate [Norvasc 10 mg Tablet] 10 mg PO DAILY 06/04/17 Carvedilol [Coreg 25 mg Tablet] 25 mg PO BIDACBS 06/04/17 Furosemide [Lasix 40 mg Tablet] 40 mg PO DAILY 06/04/17 Lisinopril [Prinivil] 20 mg PO DAILY 06/04/17 Allergies/Adverse Reactions: No Known Allergies Allergy (Verified 06/03/17 16:56) Review of Systems Constitutional: PRESENT: anorexia, weight loss. ABSENT: chills, fever(s), headache(s) Eyes: ABSENT: visual disturbances Ears: ABSENT: hearing changes Nose, Mouth, and Throat: ABSENT: headache(s) Cardiovascular: PRESENT: palpitations. ABSENT: chest pain, edema, orthropnea Respiratory: PRESENT: dyspnea - -prior to being in the hospital Gastrointestinal: ABSENT: constipation, diarrhea, nausea, vomiting Genitourinary: ABSENT: dysuria, hematuria Musculoskeletal: ABSENT: deformity, joint swelling Integumentary: PRESENT: lesions. ABSENT: erythema Neurological: ABSENT: confusion, dizziness, focal weakness Psychiatric: ABSENT: anxiety, depression Endocrine: ABSENT: polydipsia Physical Exam Vital Signs: Temp Pulse Resp BP Pulse Ox 98.3 F 79 16 135/84 H 98 06/05/17 07:06 06/05/17 07:06 06/05/17 07:06 06/05/17 07:06 06/05/17 07:06 Intake & Output 06/04/17 06/05/17 06/06/17 06:59 06:59 06:59 Intake Total 1101 1422 Output Total 500 500 Balance 601 922 Weight 77.8 kg 77 kg General appearance: PRESENT: no acute distress, well-developed, well-nourished Head exam: PRESENT: atraumatic, normocephalic Mouth exam: PRESENT: moist, tongue midline Neck exam: PRESENT: full ROM. ABSENT: JVD, tracheal deviation Respiratory exam: PRESENT: clear to auscultation rob. ABSENT: accessory muscle use, chest wall tenderness, crackles Cardiovascular exam: PRESENT: RRR, +S1, +S2 GI/Abdominal exam: PRESENT: normal bowel sounds, soft. ABSENT: ascites, distended, firm, guarding, hernia Extremities exam: ABSENT: joint swelling, pedal edema, tenderness Musculoskeletal exam: PRESENT: normal inspection. ABSENT: deformity, tenderness Neurological exam: PRESENT: alert, awake, oriented to person, oriented to place , oriented to time, oriented to situation, other - No asterixis Psychiatric exam: PRESENT: appropriate affect, normal mood Skin exam: PRESENT: dry, warm Results Laboratory Results: 06/05/17 03:55 06/05/17 03:55 06/05/17 06/05/17 03:55 03:55 WBC 5.7 RBC 2.92 L Hgb 9.5 L Hct 28.1 L MCV 96 MCH 32.5 MCHC 33.8 RDW 13.4 Plt Count 207 Seg Neutrophils % 55.4 Lymphocytes % 30.3 Monocytes % 7.8 Eosinophils % 5.2 Basophils % 1.3 Absolute Neutrophils 3.2 Absolute Lymphocytes 1.7 Absolute Monocytes 0.4 Absolute Eosinophils 0.3 Absolute Basophils 0.1 Sodium 138.2 Potassium 3.3 L Chloride 108 H Carbon Dioxide 21 L Anion Gap 9 BUN 32 H Creatinine 4.30 H Est GFR ( Amer) 18 L Est GFR (Non-Af Amer) 15 L Glucose 109 Calcium 8.6 Phosphorus 4.7 H Albumin 2.9 L 06/03/17 22:20 Troponin I 0.122 Impressions: Chest X-Ray 06/03/17 17:18 IMPRESSION: Essentially stable radiographic appearance of the chest, suggesting mild persistent versus recurrent pulmonary edema. Renal Ultrasound 06/04/17 00:00 IMPRESSION: SLIGHT INCREASED ECHOGENICITY OF THE RENAL PARENCHYMA LIKELY DUE TO CHRONIC RENAL DISEASE. CORTICAL CYSTS IN BOTH KIDNEYS. NO HYDRONEPHROSIS OR OTHER SIGNIFICANT FINDINGS. Assessment & Plan - Diagnosis (1) Chronic kidney disease, stage IV (severe) Is this a current diagnosis for this admission?: Yes Plan: combined with nonoliguric ALEXANDER: creatinine looks to be elevated from baseline of 3.5 that he was at when he was last at the office. Most likely due to hypertensive emergancy due to cocaine use. Could also be due to dehydration. Not likely due to obstruction because U/S did not show block or urinary retention. 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 Does not appear to be fluid overloaded at this time, potassum is stable and patient does not appear to be uremic. (2) Cocaine abuse Is this a current diagnosis for this admission?: Yes Plan: advised him stopping using cocaine or he would damage the kidneys further. (3) Hypertensive emergency Is this a current diagnosis for this admission?: Yes Plan: currently better controlled. Recommend keeping bp between 140s to 160s for a few days and then controlling tighter after a few days. (4) Anemia Qualifiers: Anemia type: unspecified type Qualified Code(s): D64.9 - Anemia, unspecified Plan: Started him on PO iron qd. Will observe hemoglobin. If it does not start to rise , will consider epogen. (5) Hypokalemia Plan: will started 20mEQ of potassium PO qd
--- NOTE | 2017-06-05 15:19 | PDOC DISCHARGE SUMMARY ---
General - Admit/Disc Date/PCP Admission Date/Primary Care Provider: 06/03/17 21:42 Discharge Date: 06/05/17 - Discharge Diagnosis (1) Hypertensive emergency Is this a current diagnosis for this admission?: Yes Summary: Complicated by Acute Renal Injury and Pulmonary Edema: Resolved. Pt blood pressure under control. Pt states that he ran out of medications. (2) Pulmonary edema Is this a current diagnosis for this admission?: Yes Summary: Lasix (3) Acute hypoxemic respiratory failure Is this a current diagnosis for this admission?: Yes Summary: Resolved with diuretics. (4) Acute kidney failure Is this a current diagnosis for this admission?: Yes Summary: in setting of CKD Stage 4: Resolved. Pt's renal function at baseline. (5) Chronic kidney disease, stage IV (severe) Is this a current diagnosis for this admission?: Yes Summary: Pt at baseline. (6) Hypokalemia Is this a current diagnosis for this admission?: Yes Summary: Pt given Potassium. Pt will be on Lisinopril. Pt's potassium will need to be monitored closely. - Additional Information Discharge Diet: Cardiac Discharge Activity: Activity As Tolerated, Balance Activity w/Rest, Weigh Daily Home Medications: Amlodipine Besylate [Norvasc 10 mg Tablet] 10 mg PO DAILY #30 tablet 06/05/17 Clonidine HCl [Catapres 0.2 mg Tablet] 0.2 mg PO Q8 #90 tablet 06/05/17 Ferrous Sulfate [Feosol 325 mg Tablet] 325 mg PO DAILY tablet 06/05/17 Furosemide [Lasix 40 mg Tablet] 40 mg PO DAILY #30 tablet 06/05/17 Hydralazine HCl [Apresoline 50 mg Tablet] 50 mg PO BID #60 tablet 06/05/17 Lisinopril [Prinivil] 20 mg PO DAILY #30 tablet 06/05/17 History of Present Illness History of Present Illness: PHARAOH ROSENBAUM is a 51 year old male who presented to our facility after smoking crack 24 hours ago. Hospital Course Hospital Course: Pt 51 year old male who presented to the hospital with complaint of shortness of breath after smoking crack cocaine. Pt was found to have acute pulmonary edema. Pt was also found to have acute renal injury in setting of ckd stage 4. Pt was noted to have hypertensive emergency. Pt was restarted on medications that he states that he has not been able to afford. Physical Exam Vital Signs: Temp Pulse Resp BP Pulse Ox 97.8 F 85 18 144/94 H 100 06/05/17 13:57 06/05/17 13:57 06/05/17 13:57 06/05/17 13:57 06/05/17 13:57 Intake & Output 06/04/17 06/05/17 06/06/17 06:59 06:59 06:59 Intake Total 1101 1422 681 Output Total 500 500 Balance 601 922 681 Weight 77.8 kg 77 kg General appearance: PRESENT: no acute distress, well-developed, well-nourished Head exam: PRESENT: atraumatic, normocephalic Eye exam: PRESENT: conjunctiva pink, EOMI. ABSENT: scleral icterus Ear exam: PRESENT: normal external ear exam Mouth exam: PRESENT: moist, tongue midline Neck exam: ABSENT: carotid bruit, JVD, lymphadenopathy, thyromegaly Respiratory exam: PRESENT: clear to auscultation rob. ABSENT: rales, rhonchi, wheezes Cardiovascular exam: PRESENT: RRR. ABSENT: diastolic murmur, rubs, systolic murmur Pulses: PRESENT: normal dorsalis pedis pul Vascular exam: PRESENT: normal capillary refill GI/Abdominal exam: PRESENT: normal bowel sounds, soft. ABSENT: distended, guarding, mass, organolmegaly, rebound, tenderness Rectal exam: PRESENT: deferred Extremities exam: PRESENT: full ROM. ABSENT: calf tenderness, clubbing, pedal edema Neurological exam: PRESENT: alert, awake, oriented to person, oriented to place , oriented to time, oriented to situation, CN II-XII grossly intact. ABSENT: motor sensory deficit Psychiatric exam: PRESENT: appropriate affect, normal mood. ABSENT: homicidal ideation, suicidal ideation Skin exam: PRESENT: dry, intact, warm. ABSENT: cyanosis, rash Results Laboratory Results: 06/05/17 03:55 06/05/17 03:55 06/05/17 06/05/17 03:55 03:55 WBC 5.7 RBC 2.92 L Hgb 9.5 L Hct 28.1 L MCV 96 MCH 32.5 MCHC 33.8 RDW 13.4 Plt Count 207 Seg Neutrophils % 55.4 Lymphocytes % 30.3 Monocytes % 7.8 Eosinophils % 5.2 Basophils % 1.3 Absolute Neutrophils 3.2 Absolute Lymphocytes 1.7 Absolute Monocytes 0.4 Absolute Eosinophils 0.3 Absolute Basophils 0.1 Sodium 138.2 Potassium 3.3 L Chloride 108 H Carbon Dioxide 21 L Anion Gap 9 BUN 32 H Creatinine 4.30 H Est GFR ( Amer) 18 L Est GFR (Non-Af Amer) 15 L Glucose 109 Calcium 8.6 Phosphorus 4.7 H Albumin 2.9 L 06/03/17 22:20 Troponin I 0.122 Impressions: Chest X-Ray 06/03/17 17:18 IMPRESSION: Essentially stable radiographic appearance of the chest, suggesting mild persistent versus recurrent pulmonary edema. Renal Ultrasound 06/04/17 00:00 IMPRESSION: SLIGHT INCREASED ECHOGENICITY OF THE RENAL PARENCHYMA LIKELY DUE TO CHRONIC RENAL DISEASE. CORTICAL CYSTS IN BOTH KIDNEYS. NO HYDRONEPHROSIS OR OTHER SIGNIFICANT FINDINGS.
[2017-06-06] MEDS ORDERED: FERROUS SULFATE 325 MG TABLET PO SCH (10:00)
== END 2017-06-05 15:13 | disposition home or self-care (01) ==
LOC: ER 16:38 → UNDOADMOB 20:22 → EH 20:22 → INTOOBSV 20:22 → EH 21:42 → 3S 21:43 → EH 21:43 → 3S 21:43
PROVIDERS: ADMIT Internal Medicine; ATTEND Internal Medicine
DX: I16.1 Hypertensive emergency (principal); I13.0 Hypertensive heart and chronic kidney disease with heart failure and stage 1 through stage 4 chronic kidney disease, or unspecified chronic kidney disease; N18.4 Chronic kidney disease, stage 4 (severe); N17.9 Acute kidney failure, unspecified; I50.9 Heart failure, unspecified; J81.0 Acute pulmonary edema; J96.01 Acute respiratory failure with hypoxia; E87.6 Hypokalemia; R63.0 Anorexia; R63.4 Abnormal weight loss; F17.210 Nicotine dependence, cigarettes, uncomplicated; L98.9 Disorder of the skin and subcutaneous tissue, unspecified; F14.10 Cocaine abuse, uncomplicated; D64.9 Anemia, unspecified; F19.10 Other psychoactive substance abuse, uncomplicated; Z91.14 Patient's other noncompliance with medication regimen; Z82.49 Family history of ischemic heart disease and other diseases of the circulatory system; Z84.1 Family history of disorders of kidney and ureter; Z82.5 Family history of asthma and other chronic lower respiratory diseases; Z86.79 Personal history of other diseases of the circulatory system
CPT/HCPCS: 93005; 96376; 99291; 96374; 96375; 80069; 36415 ×3; 82553; 82306; 82607; 82550; 82728; 82746; 83540; 83550; 83735; 85025 ×2; 85610; 85045; 80048; 80053; 83970; 81001; 84484; 84466; 80307; 83880; 71010; 76770; 93010; G0378 ×3; J1644 ×3; J1940; J0360 ×2; J3490; J7030

== ENCOUNTER 2017-09-02 13:54 | Emergency (ER) | payer SELFPAY ==
--- NOTE | 2017-09-02 14:24 | ER Document Report ---
ED Medical Screen (RME) - General Chief Complaint: Hand Swelling Stated Complaint: HAND SWELLING/PAIN Time Seen by Provider: 09/02/17 14:10 Notes: 51-year-old male patient comes emergency room complaining of waking up in [place] 2 days ago with his left hand swollen and painful. He reports he been out there working on the job. He denies any trauma or injury. He denies any recent IV drug abuse in that extremity. There are some areas in the antecubital region that he states are due to selling plasma. He does have three emergency admissions at this facility for hypertensive emergencies related to cocaine and heroin use. I have greeted and performed a rapid initial assessment of this patient. A comprehensive ED assessment and evaluation of the patient, analysis of test results and completion of the medical decision making process will be conducted by additional ED providers. TRAVEL OUTSIDE OF THE [place] IN LAST 30 DAYS: No - Related Data Allergies/Adverse Reactions: No Known Allergies Allergy (Verified 06/03/17 16:56) Past Medical History - Social History Chew tobacco use (# tins/day): No Frequency of alcohol use: Occasional Drug Abuse: None - Past Medical History Cardiac Medical History: Reports: Hx Congestive Heart Failure, Hx Hypertension Renal/ Medical History: Denies: Hx Peritoneal Dialysis - Immunizations Immunizations up to date: No Hx Diphtheria, Pertussis, Tetanus Vaccination: Yes History of Influenza Vaccine for 06/2017 - 11/2017 Season: Unknown Physical Exam - Vital signs Vitals: Temp Pulse Resp BP Pulse Ox 98.3 F 110 H 18 150/97 H 99 09/02/17 14:01 09/02/17 14:01 09/02/17 14:01 09/02/17 14:01 09/02/17 14:01 Course - Vital Signs Vital signs: Temp Pulse Resp BP Pulse Ox 98.3 F 110 H 18 150/97 H 99 09/02/17 14:01 09/02/17 14:01 09/02/17 14:01 09/02/17 14:01 09/02/17 14:01
--- NOTE | 2017-09-02 14:42 | ER Document Report ---
ED General - General Chief Complaint: Hand Swelling Stated Complaint: HAND SWELLING/PAIN Time Seen by Provider: 09/02/17 14:10 Mode of Arrival: Ambulatory Information source: Patient Notes: Patient presents to the emergency department with complaints of left hand pain and swelling. He reports a couple days ago he woke up to a sharp pain on the left lateral side of his hand. He denies trauma. Denies history of IV drug use. 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 No cuts or lacerations to the hand. He reports he is right-hand dominant. Denies fever vomiting diarrhea. Reports that left hand started swelling after that. Reports really no pain, just tight from swelling. Denies history of injury to the hand. TRAVEL OUTSIDE OF THE [place] IN LAST 30 DAYS: No - HPI Onset: Other Onset/Duration: Persistent Quality of pain: Achy Severity: Moderate Pain Level: 3 Associated symptoms: None Exacerbated by: Other - making a fist Relieved by: Denies Similar symptoms previously: No Recently seen / treated by doctor: No - Related Data Allergies/Adverse Reactions: No Known Allergies Allergy (Verified 06/03/17 16:56) Past Medical History - General Information source: Patient - Social History Smoking Status: Current Every Day Smoker Cigarette use (# per day): Yes Chew tobacco use (# tins/day): No Frequency of alcohol use: Occasional Drug Abuse: None 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 Family History: CAD, COPD Patient has suicidal ideation: No Patient has homicidal ideation: No - Past Medical History Cardiac Medical History: Reports: Hx Congestive Heart Failure, Hx Hypertension Renal/ Medical History: Denies: Hx Peritoneal Dialysis Surgical Hx: Negative - Immunizations Immunizations up to date: No Hx Diphtheria, Pertussis, Tetanus Vaccination: Yes Review of Systems - Review of Systems Notes: Review HPI for review of systems., All other systems negative Physical Exam - Vital signs Vitals: Temp Pulse Resp BP Pulse Ox 98.3 F 110 H 18 150/97 H 99 09/02/17 14:01 09/02/17 14:01 09/02/17 14:01 09/02/17 14:01 09/02/17 14:01 - Notes Notes: PHYSICAL EXAMINATION: GENERAL: Well-appearing and in no acute distress HEAD: Atraumatic, normocephalic. EYES: Pupils equal round and reactive to light, extraocular movements intact, sclera anicteric, conjunctiva are normal. ENT: nares patent, oropharynx clear without exudates. Moist mucous membranes. NECK: Normal range of motion, supple without lymphadenopathy LUNGS: CTAB and equal. No wheezes rales or rhonchi. HEART: Regular rate and rhythm without murmurs ABDOMEN: Soft, no tenderness. No guarding, no rebound EXTREMITIES: Normal range of motion,left hand dorsal swelling, no erythema, no warmth, no open sores/wounds, good radial pulse, good cap refill, wiggles fingers without problems, c/o hand feels tight when making a fist NEUROLOGICAL: Cranial nerves grossly intact. Normal sensory/motor exams. PSYCH: Normal mood, normal affect. SKIN: Warm, Dry, normal turgor, no rashes or lesions noted Course - Re-evaluation Re-evalutation: 09/02/17 15:54 CBC unremarkable Chem-12 bun/creat, slight increase ckd stage iv. consulted dr jane, he advised cxry, doppler, eval for possible pancoast tumor. pt informed of pending exams 09/02/17 17:07 CHEST XRAY NEG, Doppler negative per tech. Discussed with natalia Short to be discharged. Patient instructed on signs and symptoms of infection. Instructed on the importance of [facility]. Patient verbalized understanding tall instructions. - Vital Signs Vital signs: Temp Pulse Resp BP Pulse Ox 98.3 F 110 H 18 150/97 H 99 09/02/17 14:01 09/02/17 14:01 09/02/17 14:01 09/02/17 14:01 09/02/17 14:01 - Laboratory Result Diagrams: 09/02/17 14:30 09/02/17 14:30 Laboratory results interpreted by me: 09/02/17 09/02/17 14:30 14:30 RBC 3.51 L Hgb 11.2 L Hct 33.4 L Seg Neutrophils % 78.6 H BUN 32 H Creatinine 4.57 H Est GFR ( Amer) 16 L Est GFR (Non-Af Amer) 14 L AST 15 L - Diagnostic Test Radiology reviewed: Image reviewed, Reports reviewed - Negative hand x-ray-no fracture negative ultrasound-no abscess Discharge - Discharge Clinical Impression: Swelling of left hand, Chronic kidney disease, stage IV (severe), Elevated blood pressure reading Condition: Stable Disposition: HOME, SELF-CARE Instructions: [facility] ([facility]) Additional Instructions: *You have been evaluated for left hand swelling *The xray and ultrasounds were negative for an acute injury *Rest/Ice/Elevate your hand *[facility] up with [facility] Monday, call for an appointment *Return to ED for worsening condition, changes, needs Monitor your blood pressure. Your blood pressure was elevated today. This may be because you were anxious, in pain or because you need medication. It is important to follow up with your primary care provider for full evaluation. Forms: Elevated Blood Pressure, Return to Work
[2017-09-02] MEDS ORDERED: IBUPROFEN 800 MG TABLET PO ONE (14:49)
[2017-09-02 14:51] LABS: ABSOLUTE EOSINOPHILS # (AUTO) 0.2 10^3/uL (0.0-0.6); ABSOLUTE LYMPHOCYTES (AUTO) 1.2 10^3/uL (0.5-4.7); ABSOLUTE MONOCYTES (AUTO) 0.5 10^3/uL (0.1-1.4); ABSOLUTE NEUT (AUTO) 7.1 10^3/uL (1.7-8.2); BASOPHILS % (AUTO) 0.3 % (0-2); EOSINOPHILS % (AUTO) 2.3 % (0-6); HEMATOCRIT 33.4 % (37.9-51.0); HEMOGLOBIN 11.2 g/dL (13.5-17.0); HGB HCT DIFFERENCE 0.2; LYMPHOCYTES % (AUTO) 13.4 % (13-45); MEAN CORPUSCULAR HEMOGLOBIN 31.8 pg (27.0-33.4); MEAN CORPUSCULAR HGB CONC 33.4 g/dL (32.0-36.0); MEAN CORPUSCULAR VOLUME 95 fl (80-97); MONOCYTES % (AUTO) 5.4 % (3-13); RED BLOOD COUNT 3.51 10^6/uL (4.35-5.55); RED CELL DISTRIBUTION WIDTH 13.3 % (11.5-14.0); SEGMENTED NEUTROPHILS % (AUTO) 78.6 % (42-78)
[2017-09-02 15:20] LABS: ALANINE AMINOTRANSFERASE 29 U/L (21-72); ALBUMIN 4.1 g/dL (3.5-5.0); ALKALINE PHOSPHATASE 81 U/L (38-126); ANION GAP 14 (5-19); ASPARTATE AMINO TRANSFERASE 15 U/L (17-59); BILIRUBIN,DIRECT 0.3 mg/dL (0.0-0.4); BILIRUBIN,TOTAL 0.3 mg/dL (0.2-1.3); BLOOD UREA NITROGEN 32 mg/dL (7-20); CALCIUM 9.4 mg/dL (8.4-10.2); CARBON DIOXIDE 23 mmol/L (22-30); CHLORIDE 107 mmol/L (98-107); CREATININE RESULT 4.57 mg/dL (0.52-1.25); GLUCOSE 88 mg/dL (75-110); POTASSIUM 4.7 mmol/L (3.6-5.0); SODIUM 143.5 mmol/L (137-145); TOTAL PROTEIN 6.8 g/dL (6.3-8.2); URIC ACID 7.4 mg/dL (3.5-8.5)
--- NOTE | 2017-09-02 15:29 | RADIOLOGY REPORT (SQ) ---
EXAM DESCRIPTION: U/S EXTREMITY NONVASCULAR LTD COMPLETED DATE/TIME: 09/02/2017 3:15 pm REASON FOR STUDY: left hand swelling COMPARISON: Radiographs. TECHNIQUE: Dynamic and static grayscale images acquired of the localized site of clinical concern an d recorded on PACS. Additional selected color Doppler and spectral images recorded. SITE OF CONCERN: Dorsal left hand. LIMITATIONS: None. FINDINGS: SKIN AND SUBCUTANEOUS TISSUES: Subcutaneous edema and non loculated fluid. No regional fo reign body detected. DEEP SOFT TISSUES/MUSCLES: No masses. No fluid collections. No edema. VASCULAR: No increased or decreased vascularity. No occlusions. OTHER: No other significant finding. IMPRESSION: Soft tissue edema. Potential cellulitis. No drainable collections or suggestion of for eign body. TECHNICAL DOCUMENTATION: JOB ID: [id number] [employer]- All Rights Reserved
--- NOTE | 2017-09-02 15:41 | RADIOLOGY REPORT (SQ) ---
EXAM DESCRIPTION: HAND LEFT 3 VIEWS COMPLETED DATE/TIME: 09/02/2017 3:25 pm REASON FOR STUDY: hand pain swelling COMPARISON: None. NUMBER OF VIEWS: Three views left hand. LIMITATIONS: None. FINDINGS: Bones intact. Soft tissue swelling over the dorsal hand. No radiopaque foreign body. OTHER: No other significant finding. IMPRESSION: Soft tissue swelling. No foreign body or fracture appreciated. TECHNICAL DOCUMENTATION: JOB ID: [id number]
--- NOTE | 2017-09-02 16:57 | RADIOLOGY REPORT (SQ) ---
EXAM DESCRIPTION: CHEST PA/LAT COMPLETED DATE/TIME: 09/02/2017 4:37 pm REASON FOR STUDY: hand swelling, eval for tumor COMPARISON: 09/11/2016 and 05/16/2016 EXAM PARAMETERS: NUMBER OF VIEWS: two views TECHNIQUE: Digital Frontal and Lateral radiographic views of the chest acquired. RADIATION DOSE: NA LIMITATIONS: none FINDINGS: LUNGS AND PLEURA: No opacities, masses or pneumothorax. No pleural effusion. MEDIASTINUM AND HILAR STRUCTURES: Marked aortic tortuosity suggesting poorly controlled hypertension, unchanged from 05/16/2016 imaging. HEART AND VASCULAR STRUCTURES: Heart normal size. No evidence for failure. BONES: No acute findings. HARDWARE: None in the chest. OTHER: No other significant finding. IMPRESSION: Stable radiographic appearance of the chest. No evidence of mass or acute cardiopulmona ry abnormality. TECHNICAL DOCUMENTATION: JOB ID: [id number] [employer]- All Rights Reserved
[2017-09-02 17:37] VITALS: BP 152/103
--- NOTE | 2017-09-03 12:53 | XCELERA REPORT ---
[address] [address] Upper Extremity Venous Evaluation Name: PHARAOH ROBI Age: 51 yrs Gender: Male : 1965 Patient Status: Emergency Patient Location: ER Study Date: 09/02/2017 04:39 PM Procedure: Unilateral duplex scan of the left upper extremity veins was performed, including responses to compression and other maneuvers. Reason For Study: left hand swelling, look for thrombus,blockage Ordering Physician: POOJA SANCHEZ Performed By: Michelle Garcia Left Sided Venous Evaluation Normal vessel filling wall to wall, compression and augmentation as well as Colour flow down to the foreram veins. Interpretation Summary Normal compression, patency, spontaneous and phasic flow of the left upper extremity veins. : POOJA SANCHEZ > Alfonzo Sheffield
== END 2017-09-02 17:37 | disposition home or self-care (01) ==
LOC: ER 13:54
DX: M79.89 Other specified soft tissue disorders (principal); I12.9 Hypertensive chronic kidney disease with stage 1 through stage 4 chronic kidney disease, or unspecified chronic kidney disease; N18.4 Chronic kidney disease, stage 4 (severe); F17.210 Nicotine dependence, cigarettes, uncomplicated
CPT/HCPCS: 36415; 71020; 76882; 80053; 84550; 85025; 87040; 93971; 99284

== ENCOUNTER 2017-11-15 09:28 | Emergency (ER) | payer SELFPAY ==
[2017-11-15 09:39] VITALS: BP 199/123
--- NOTE | 2017-11-15 10:38 | ER Document Report ---
ED General - General Chief Complaint: Chest Wall Injury Stated Complaint: FALL/RIGHT SIDE CHEST PAIN Time Seen by Provider: 11/15/17 10:21 Notes: 52-year-old male history of hypertension, renal failure, CHF. States that he fell and landed on the right side of his chest a few days ago. Having significant pain in the right side of his chest on the right lateral and slightly anterior portion mid chest. States that he ran out of all of his blood pressure medications. 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 Was on clonidine, HCTZ, carvedilol, lisinopril. States that he ran out of all of his refills and has not been able to see a doctor so has been off of his medications as well for the last several days. Blood pressure extremely elevated. Denies any headache at this time. Denies any neurological symptoms. Does state that he has some residual weakness of the left lower extremity but that has not gotten worse. Pain is rated as a 4/5 on a numeric pain scale. Located in the right side of the chest. Sharp. Worse with deep inspiration. Worse with palpation. No other associated signs or symptoms at this time. TRAVEL OUTSIDE OF THE [place] IN LAST 30 DAYS: No - Related Data Allergies/Adverse Reactions: No Known Allergies Allergy (Verified 11/15/17 10:15) Past Medical History - General Information source: Patient - Social History Smoking Status: Current Every Day Smoker Cigarette use (# per day): Yes Chew tobacco use (# tins/day): No Frequency of alcohol use: weekends Drug Abuse: Cocaine Lives with: Family Family History: CAD, COPD Patient has suicidal ideation: No Patient has homicidal ideation: No - Past Medical History Cardiac Medical History: Reports: Hx Congestive Heart Failure, Hx Hypertension Neurological Medical History: Reports: Hx Cerebrovascular Accident Endocrine Medical History: Reports: None Renal/ Medical History: Reports: Other - History of renal failure from hypertension. Denies: Hx Peritoneal Dialysis Malignancy Medical History: Reports None GI Medical History: Reports: None Musculoskeltal Medical History: Reports None Skin Medical History: Reports None Psychiatric Medical History: Reports: None - Immunizations Immunizations up to date: No Hx Diphtheria, Pertussis, Tetanus Vaccination: Yes Review of Systems - Review of Systems Constitutional: denies: Fever, Malaise, Weakness EENT: denies: Blurred vision, Double vision, Throat pain, Difficulty swallowing , Throat swelling, Mouth pain Cardiovascular: Chest pain. denies: Palpitations, Heart racing, Dyspnea, Dizziness, Lightheaded Respiratory: denies: Cough, Hurts to breathe, Hemoptysis, Short of breath, Wheezing Gastrointestinal: denies: Abdominal pain, Diarrhea, Nausea, Vomiting Genitourinary: denies: Burning, Flank pain, Urgency Musculoskeletal: denies: Back pain, Gout, Joint pain, Joint swelling, Muscle pain, Muscle stiffness Skin: denies: Dryness, Lesions, Lumps, Rash Hematologic/Lymphatic: denies: Anemia, Blood clots, Easy bleeding, Easy bruising Neurological/Psychological: denies: Confusion, Dementia, Depression, Weakness Physical Exam - Vital signs Vitals: Temp Pulse Resp BP Pulse Ox 99.0 F 98 20 199/123 H 99 11/15/17 09:37 11/15/17 09:37 11/15/17 09:37 11/15/17 09:37 11/15/17 09:37 Interpretation: Normal - General General appearance: Appears well, Alert - HEENT Head: Normocephalic, Atraumatic Eyes: Normal Pupils: PERRL - Respiratory Respiratory status: No respiratory distress Chest status: Nontender Breath sounds: Normal Chest palpation: Normal - Cardiovascular Rhythm: Regular Heart sounds: Normal auscultation Murmur: No Notes: Palpable right anterior and lateral chest wall pain on the ribs. - Abdominal Inspection: Normal Distension: No distension Bowel sounds: Normal Tenderness: Nontender Organomegaly: No organomegaly - Back Back: Normal, Nontender - Extremities General upper extremity: Normal inspection, Nontender, Normal color, Normal ROM , Normal temperature General lower extremity: Normal inspection, Nontender, Normal color, Normal ROM , Normal temperature, Normal weight bearing. No: Barbara's sign - Neurological Neuro grossly intact: Yes Cognition: Normal Orientation: AAOx4 Mac Coma Scale Eye Opening: Spontaneous Mac Coma Scale Verbal: Oriented Mac Coma Scale Motor: Obeys Commands [place] Coma Scale Total: 15 Speech: Normal Motor strength normal: LUE, RUE, LLE, RLE Sensory: Normal - Psychological Associated symptoms: Normal affect, Normal mood - Skin Skin Temperature: Warm Skin Moisture: Dry Skin Color: Normal Course - Re-evaluation Re-evalutation: 11/15/17 12:08 Labs and studies fairly unremarkable. EKG unchanged from prior. No evidence of rib fractures. Patient's baseline blood pressure medication has been ordered. We will refill him on the same. Cocaine positive in his urine drug screen. Uncomfortable giving him anything stronger for pain based on this potential drug abuse. Will advise he take Tylenol. - Vital Signs Vital signs: Temp Pulse Resp BP Pulse Ox 99.0 F 98 20 199/123 H 99 11/15/17 09:37 11/15/17 09:37 11/15/17 09:37 11/15/17 09:37 11/15/17 09:37 - Laboratory Result Diagrams: 11/15/17 10:30 11/15/17 10:30 Laboratory results interpreted by me: 11/15/17 11/15/17 11/15/17 10:30 10:30 10:30 RBC 3.21 L Hgb 10.1 L Hct 30.2 L Sodium 146.2 H Chloride 115 H Carbon Dioxide 18 L BUN 33 H Creatinine 4.59 H Est GFR ( Amer) 16 L Est GFR (Non-Af Amer) 13 L Urine Protein 100 H Urine Blood SMALL H - EKG Interpretation by Sc EKG shows normal: Sinus rhythm, Dozier, Intervals, QRS Complexes. abnormal: ST-T Waves - Questionable mild ST elevation unchanged from previous EKG seen in leads V2, V3, V4 Discharge - Discharge Clinical Impression: Hypertension Qualifiers: Hypertension type: unspecified Qualified Code(s): I10 - Essential (primary) hypertension Chest wall contusion Qualifiers: Encounter type: initial encounter Laterality: right Qualified Code(s): S20.211A - Contusion of right front wall of thorax, initial encounter Condition: Good Disposition: HOME, SELF-CARE Instructions: High Blood Pressure ([facility]), Chest Wall Pain ([facility]) Prescriptions: Carvedilol 12.5 mg PO DAILY 30 Days #30 tablet Furosemide [Lasix 20 mg Tablet] 20 mg PO QAM 30 Days #30 tablet Lisinopril/Hydrochlorothiazide [Lisinopril-Hctz 20-25 mg Tab] 1 each PO DAILY 30 Days #30 tablet Forms: Elevated Blood Pressure, Smoking Cessation Education Referrals: JENELLE ORTIZ MD [ACTIVE STAFF] - Follow up in 1 week
[2017-11-15] MEDS ORDERED: LISINOPRIL 10 MG TABLET PO ONE (10:46)
[2017-11-15] MEDS ORDERED: CLONIDINE HCL 0.1 MG TABLET PO ONE (10:46)
[2017-11-15] MEDS ORDERED: HYDROCHLOROTHIAZIDE 25 MG TABLET PO ONE (10:46)
[2017-11-15] MEDS ORDERED: CARVEDILOL 6.25 MG TABLET PO ONE (10:46)
[2017-11-15] MEDS ORDERED: OXYCODONE-ACETAMINOPHEN 5-325 MG TABLET PO ONE (10:46)
[2017-11-15 10:48] LABS: ABSOLUTE EOSINOPHILS # (AUTO) 0.1 10^3/uL (0.0-0.6); ABSOLUTE LYMPHOCYTES (AUTO) 1.3 10^3/uL (0.5-4.7); ABSOLUTE MONOCYTES (AUTO) 0.4 10^3/uL (0.1-1.4); ABSOLUTE NEUT (AUTO) 3.7 10^3/uL (1.7-8.2); BASOPHILS % (AUTO) 0.7 % (0-2); EOSINOPHILS % (AUTO) 2.5 % (0-6); HEMATOCRIT 30.2 % (37.9-51.0); HEMOGLOBIN 10.1 g/dL (13.5-17.0); LYMPHOCYTES % (AUTO) 23.8 % (13-45); MEAN CORPUSCULAR HEMOGLOBIN 31.3 pg (27.0-33.4); MEAN CORPUSCULAR HGB CONC 33.3 g/dL (32.0-36.0); MEAN CORPUSCULAR VOLUME 94 fl (80-97); MONOCYTES % (AUTO) 6.7 % (3-13); PLATELET COUNT 214 10^3/uL (150-450); RED BLOOD COUNT 3.21 10^6/uL (4.35-5.55); RED CELL DISTRIBUTION WIDTH 13.6 % (11.5-14.0); SEGMENTED NEUTROPHILS % (AUTO) 66.3 % (42-78); TOTAL CELLS COUNTED % (AUTO) 100 %; WHITE BLOOD COUNT 5.6 10^3/uL (4.0-10.5)
[2017-11-15 10:51] LABS: APPEARANCE,URINE CLEAR; BILIRUBIN,URINE NEGATIVE (NEGATIVE); COLOR,URINE YELLOW; GLUCOSE, URINE NEGATIVE (NEGATIVE); KETONES,URINE NEGATIVE (NEGATIVE); LEUKOCYTE ESTERASE,URINE NEGATIVE (NEGATIVE); NITRITE,URINE NEGATIVE (NEGATIVE); PROTEIN,URINE 100 mg/dL (NEGATIVE); URINE SPECIFIC GRAVITY 1.013; UROBILINOGEN,URINE NEGATIVE mg/dL (<2.0)
--- NOTE | 2017-11-15 11:08 | RADIOLOGY REPORT (SQ) ---
EXAM DESCRIPTION: CHEST PA/LAT COMPLETED DATE/TIME: 11/15/2017 10:52 am REASON FOR STUDY: fell/right lat chest pain COMPARISON: Two-view chest 09/02/2017 EXAM PARAMETERS: NUMBER OF VIEWS: two views TECHNIQUE: Digital Frontal and Lateral radiographic views of the chest acquired. RADIATION DOSE: NA LIMITATIONS: none FINDINGS: LUNGS AND PLEURA: Minimal lingular bandlike atelectasis. No fluffy alveolar infiltrates worrisome for pulmonary edema or pneumonia. No pneumothorax. No pleu ral effusion. MEDIASTINUM AND HILAR STRUCTURES: No masses or contour abnormalities. HEART AND VASCULAR STRUCTURES: Mild cardiomegaly BONES: No displaced right lateral rib fractures. HARDWARE: None in the chest. OTHER: No other significant finding. IMPRESSION: No displaced right lateral rib fractures or right-sided pneumothorax. Minimal lingular atelectasis Mild cardiomegaly TECHNICAL DOCUMENTATION: JOB ID: [id number] [employer]- All Rights Reserved Reading location - IP/workstation name: [email or web address]
[2017-11-15 11:10] LABS: ALANINE AMINOTRANSFERASE 30 U/L (21-72); ALBUMIN 4.3 g/dL (3.5-5.0); ALKALINE PHOSPHATASE 66 U/L (38-126); ANION GAP 13 (5-19); ASPARTATE AMINO TRANSFERASE 28 U/L (17-59); BILIRUBIN,DIRECT 0.4 mg/dL (0.0-0.4); BILIRUBIN,TOTAL 0.4 mg/dL (0.2-1.3); BLOOD UREA NITROGEN 33 mg/dL (7-20); CALCIUM 9.1 mg/dL (8.4-10.2); CARBON DIOXIDE 18 mmol/L (22-30); CHLORIDE 115 mmol/L (98-107); GLUCOSE 103 mg/dL (75-110); POTASSIUM 4.1 mmol/L (3.6-5.0); SODIUM 146.2 mmol/L (137-145); TOTAL PROTEIN 7.1 g/dL (6.3-8.2)
[2017-11-15 11:12] LABS: URINE AMPHETAMINES SCREEN NEGATIVE; URINE BARBITURATES SCREEN NEGATIVE; URINE BENZODIAZEPINES SCREEN NEGATIVE; URINE COCAINE SCREEN UNCONFIRMED POSITIVE; URINE MARIJUANA (THC) SCREEN NEGATIVE; URINE METHADONE SCREEN NEGATIVE; URINE PHENCYCLIDINE SCREEN NEGATIVE
--- NOTE | 2017-11-15 12:57 | EKG REPORT ---
SEVERITY:- ABNORMAL ECG - SINUS RHYTHM PROBABLE LEFT ATRIAL ABNORMALITY LEFT ANTERIOR FASCICULAR BLOCK PROBABLE LEFT VENTRICULAR HYPERTROPHY ST ELEVATION NONSPECIFIC. : Confirmed by: Taj Huddleston MD 15-Nov-2017 12:56:25
== END 2017-11-15 12:20 | disposition home or self-care (01) ==
LOC: ER 09:28
DX: S20.211A Contusion of right front wall of thorax, initial encounter (principal); I10 Essential (primary) hypertension; N19 Unspecified kidney failure; I50.9 Heart failure, unspecified; W19.XXXA Unspecified fall, initial encounter; Z79.899 Other long term (current) drug therapy; F17.210 Nicotine dependence, cigarettes, uncomplicated
CPT/HCPCS: 36415; 71046; 80053; 80307; 81001; 84484; 85025; 93005; 93010; 99284

== ENCOUNTER 2017-12-13 05:21 | Emergency (ER) | payer SELFPAY ==
[2017-12-13 05:33] VITALS: BP 137/89
[2017-12-13 06:03] LABS: ABSOLUTE BASOPHILS # (AUTO) 0.1 10^3/uL (0.0-0.2); ABSOLUTE EOSINOPHILS # (AUTO) 0.2 10^3/uL (0.0-0.6); ABSOLUTE LYMPHOCYTES (AUTO) 2.1 10^3/uL (0.5-4.7); ABSOLUTE NEUT (AUTO) 6.1 10^3/uL (1.7-8.2); BASOPHILS % (AUTO) 0.8 % (0-2); EOSINOPHILS % (AUTO) 1.9 % (0-6); HEMATOCRIT 36.3 % (37.9-51.0); HEMOGLOBIN 12.4 g/dL (13.5-17.0); MEAN CORPUSCULAR HEMOGLOBIN 32.2 pg (27.0-33.4); MEAN CORPUSCULAR HGB CONC 34.3 g/dL (32.0-36.0); MEAN CORPUSCULAR VOLUME 94 fl (80-97); MONOCYTES % (AUTO) 10.5 % (3-13); PLATELET COUNT 259 10^3/uL (150-450); RED BLOOD COUNT 3.86 10^6/uL (4.35-5.55); RED CELL DISTRIBUTION WIDTH 13.3 % (11.5-14.0); SEGMENTED NEUTROPHILS % (AUTO) 64.8 % (42-78); TOTAL CELLS COUNTED % (AUTO) 100 %; WHITE BLOOD COUNT 9.4 10^3/uL (4.0-10.5)
[2017-12-13 06:13] LABS: APPEARANCE,URINE CLEAR; BILIRUBIN,URINE NEGATIVE (NEGATIVE); COLOR,URINE YELLOW; GLUCOSE, URINE NEGATIVE (NEGATIVE); KETONES,URINE NEGATIVE (NEGATIVE); LEUKOCYTE ESTERASE,URINE TRACE (NEGATIVE); NITRITE,URINE NEGATIVE (NEGATIVE); PROTEIN,URINE 100 mg/dL (NEGATIVE); URINE SPECIFIC GRAVITY 1.013; UROBILINOGEN,URINE NEGATIVE mg/dL (<2.0)
[2017-12-13 06:14] LABS: ALANINE AMINOTRANSFERASE 30 U/L (21-72); ALBUMIN 4.8 g/dL (3.5-5.0); ALKALINE PHOSPHATASE 72 U/L (38-126); ASPARTATE AMINO TRANSFERASE 41 U/L (17-59); BILIRUBIN,DIRECT 0.5 mg/dL (0.0-0.4); BILIRUBIN,TOTAL 0.7 mg/dL (0.2-1.3); BLOOD UREA NITROGEN 76 mg/dL (7-20); CALCIUM 9.6 mg/dL (8.4-10.2); GLUCOSE 110 mg/dL (75-110)
[2017-12-13 06:32] LABS: CHLORIDE 79 mmol/L (98-107); POTASSIUM 3.4 mmol/L (3.6-5.0); SODIUM 142.6 mmol/L (137-145)
[2017-12-13 06:37] LABS: CARBON DIOXIDE 44 mmol/L (22-30)
[2017-12-13 06:49] LABS: ANION GAP 20 (5-19)
--- NOTE | 2017-12-13 08:02 | EKG REPORT ---
SEVERITY:- ABNORMAL ECG - SINUS RHYTHM LEFT ATRIAL ABNORMALITY CONSIDER RIGHT VENTRICULAR HYPERTROPHY PROBABLE LEFT VENTRICULAR HYPERTROPHY ST ELEV, PROBABLE NORMAL EARLY REPOL PATTERN BORDERLINE PROLONGED QT INTERVAL : Confirmed by: Taj Huddleston MD 13-Dec-2017 08:01:44
--- NOTE | 2017-12-13 11:55 | RADIOLOGY REPORT (SQ) ---
EXAM DESCRIPTION: U/S RETROPERITON (RENAL/AORTA) COMPLETED DATE/TIME: 12/13/2017 11:45 am REASON FOR STUDY: renal failure COMPARISON: 06/04/2017 TECHNIQUE: Dynamic and static grayscale images acquired of the kidneys and bladder and recorded on P ACS. Additional selected color Doppler and spectral images recorded. LIMITATIONS: None. FINDINGS: RIGHT KIDNEY: Normal size. Normal echogenicity. 3.9 cm cyst. No hydronephrosis. N o calcifications. LEFT KIDNEY: Normal size. Normal echogenicity. 2.9 cm cyst. No hydronephrosis. No calcificat ions. BLADDER: No masses. OTHER FINDINGS: No other significant finding. IMPRESSION: No hydronephrosis. No significant masses. TECHNICAL DOCUMENTATION: JOB ID: [id number] [employer]- All Rights Reserved Reading location - IP/workstation name: [email or web address]
--- NOTE | 2017-12-13 11:57 | ER Document Report ---
ED GI/ - General Chief Complaint: Vomiting Stated Complaint: VOMITING/SPITTING UP BLOOD Time Seen by Provider: 12/13/17 07:07 Notes: History of present illness-52 years old male with history of hypertension has not seen any doctors for many years, presents today with coughing on and off with blood-tinged sputum. And general malaise. Feeling nauseous and vomited couple of times. Denies any fever chills neck pain neck stiffness chest pain shortness of breath wheezing denies any abdominal pain nausea vomiting. REVIEW OF SYSTEMS: CONSTITUTIONAL : Denies fever, chills, or sweats. Denies recent illness. EENT: Denies eye, ear, throat, or mouth pain or symptoms. Denies nasal or sinus congestion or discharge. Denies throat, tongue, or mouth swelling or difficulty swallowing. CARDIOVASCULAR: Denies chest pain. Denies palpitations or racing or irregular heart beat. Denies ankle edema. RESPIRATORY: Denies cough, cold, or chest congestion. Denies shortness of breath, difficulty breathing, or wheezing. GASTROINTESTINAL: Denies abdominal pain or distention. Denies nausea, vomiting , or diarrhea. Denies blood in vomitus, stools, or per rectum. Denies black, tarry stools. Denies constipation. GENITOURINARY: Denies difficulty urinating, painful urination, burning, frequency, blood in urine, or discharge. MUSCULOSKELETAL: Denies back or neck pain or stiffness. Denies joint pain or swelling. SKIN: Denies rash, lesions or sores. HEMATOLOGIC : Denies easy bruising or bleeding. LYMPHATIC: Denies swollen, enlarged glands. NEUROLOGICAL: Denies confusion or altered mental status. Denies passing out or loss of consciousness. Denies dizziness or lightheadedness. Denies headache. Denies weakness or paralysis or loss of use of either side. Denies problems with gait or speech. Denies sensory loss, numbness, or tingling. Denies seizures. PSYCHIATRIC: Denies anxiety or stress. Denies depression, suicidal ideation, or homicidal ideation. ALL OTHER SYSTEMS REVIEWED AND NEGATIVE. Dictation was performed using [employer] recognition software PHYSICAL EXAMINATION: GENERAL: Well-appearing, well-nourished and in no acute distress. HEAD: Atraumatic, normocephalic. EYES: Pupils equal round and reactive to light, extraocular movements intact, sclera anicteric, conjunctiva are normal. ENT: Nares patent, oropharynx clear without exudates. Moist mucous membranes. NECK: Normal range of motion, supple without lymphadenopathy LUNGS: Breath sounds clear to auscultation bilaterally and equal. No wheezes rales or rhonchi. HEART: Regular rate and rhythm without murmurs ABDOMEN: Soft, nontender, nondistended abdomen. No guarding, no rebound. No masses appreciated. Musculoskeletal: Normal range of motion, no pitting or edema. No cyanosis. NEUROLOGICAL: Cranial nerves grossly intact. Normal speech, normal gait. Normal sensory, motor exams PSYCH: Normal mood, normal affect. SKIN: Warm, Dry, normal turgor, no rashes or lesions noted. TRAVEL OUTSIDE OF THE [place] IN LAST 30 DAYS: No - Related Data Allergies/Adverse Reactions: No Known Allergies Allergy (Verified 12/13/17 05:28) Past Medical History - Social History Smoking Status: Current Every Day Smoker Frequency of alcohol use: Occasional Drug Abuse: Cocaine Family History: CAD, COPD Patient has suicidal ideation: No Patient has homicidal ideation: No - Past Medical History Cardiac Medical History: Reports: Hx Congestive Heart Failure, Hx Hypertension Neurological Medical History: Reports: Hx Cerebrovascular Accident Renal/ Medical History: Denies: Hx Peritoneal Dialysis - Immunizations Immunizations up to date: No Hx Diphtheria, Pertussis, Tetanus Vaccination: Yes Physical Exam - Vital signs Vitals: Temp Pulse Resp BP Pulse Ox 98.3 F 109 H 20 137/89 H 98 12/13/17 05:32 12/13/17 05:32 12/13/17 05:32 12/13/17 05:32 12/13/17 05:32 Course - Re-evaluation Re-evalutation: 12/13/17 13:44 Patient was reevaluated status assessment change, progress was discussed with hospitalist, as we do not have any general duty nurse health information clerk, he has been discharged home to follow-up with the nephrology. - Vital Signs Vital signs: Temp Pulse Resp BP Pulse Ox 98.3 F 109 H 20 137/89 H 98 12/13/17 05:32 12/13/17 05:32 12/13/17 05:32 12/13/17 05:32 12/13/17 05:32 - Laboratory Result Diagrams: 12/13/17 05:35 12/13/17 05:35 Laboratory results interpreted by me: 12/13/17 12/13/17 12/13/17 05:35 05:35 05:35 RBC 3.86 L Hgb 12.4 L Hct 36.3 L Potassium 3.4 L Chloride 79 L Carbon Dioxide 44 H* Anion Gap 20 H BUN 76 H Creatinine 10.56 H Est GFR ( Amer) 6 L Est GFR (Non-Af Amer) 5 L Direct Bilirubin 0.5 H Urine Protein 100 H Urine Blood SMALL H Ur Leukocyte Esterase TRACE H - EKG Interpretation by Me EKG shows normal: Sinus rhythm Rate: Normal - Sinus rhythm at the rate of 92 bpm normal axis no acute ST elevation ST depression T-wave inversion noted. Left ventricular hypertrophy by voltage. Discharge - Discharge Clinical Impression: Chronic renal failure, stage 5 Condition: Fair Disposition: HOME, SELF-CARE Instructions: Kidney Failure ([facility]) Additional Instructions: We have been asked to follow-up with the general duty nurse. Prescriptions: Chlorpromazine HCl [Thorazine 25 Mg Tablet] 25 mg PO TID #30 tablet
--- NOTE | 2017-12-13 12:38 | RADIOLOGY REPORT (SQ) ---
EXAM DESCRIPTION: CHEST PA/LAT COMPLETED DATE/TIME: 12/13/2017 12:23 pm REASON FOR STUDY: Cough COMPARISON: Two-view chest 11/15/2017, 09/02/2017 EXAM PARAMETERS: NUMBER OF VIEWS: two views TECHNIQUE: Digital Frontal and Lateral radiographic views of the chest acquired. RADIATION DOSE: NA LIMITATIONS: none FINDINGS: LUNGS AND PLEURA: No opacities, masses or pneumothorax. No pleural effusion. MEDIASTINUM AND HILAR STRUCTURES: Tortuous uncoiled thoracic aorta. No hilar enlargement HEART AND VASCULAR STRUCTURES: Heart normal size. No evidence for failure. BONES: No acute findings. HARDWARE: None in the chest. OTHER: No other significant finding. IMPRESSION: No acute changes TECHNICAL DOCUMENTATION: JOB ID: [id number] [employer]- All Rights Reserved Reading location - IP/workstation name: [email or web address]
[2017-12-13] MEDS ORDERED: CHLORPROMAZINE HCL 25 MG TABLET PO ONE (14:24)
== END 2017-12-13 16:20 | disposition home or self-care (01) ==
LOC: ER 05:21
DX: N18.5 Chronic kidney disease, stage 5 (principal); I10 Essential (primary) hypertension; K92.0 Hematemesis; R05 Cough; R53.81 Other malaise; F17.200 Nicotine dependence, unspecified, uncomplicated
CPT/HCPCS: 93005; 99285; 36415; 85025; 80053; 81001; 71046; 76770; 93010; J3490

== ENCOUNTER 2017-12-14 09:40 | Emergency (ER) | payer SELFPAY ==
--- NOTE | 2017-12-14 13:29 | ER Document Report ---
ED General <CARMEN RESENDIZ - Last Filed: 12/14/17 21:16> - General Mode of Arrival: Medic Information source: Patient TRAVEL OUTSIDE OF THE [place] IN LAST 30 DAYS: No <DOLLY NIXON - Last Filed: 12/20/17 07:48> - General Chief Complaint: Tremor Stated Complaint: SHAKING AND WEAKNESS Time Seen by Provider: 12/14/17 13:27 - HPI Notes: 52-year-old male presents today with complaints of bilateral upper extremity tremors that started last night as well as substernal chest pain that is only which he felt when he sat up, lasted for a few seconds and then went away. Denies any radiation of pain to shoulders. Patient reports he started tremoring after he was given Thorazine in the ER yesterday. Denies any trauma. Patient reports he did "snort heroin 2 nights ago", denies any IV substance abuse or any other illicit drug abuse since that time. Denies previous substance abuse history since the other day. Denies any fevers or chills. Denies fevers, chills, palpitations, shortness of breath, dyspnea, nausea, vomiting, diarrhea, abdominal pain, hematuria,blurred vision, double vision, loss of vision, speech changes, LH, dizziness, syncope, headaches, wheezing, ST , URI, neck pain, weakness, bowel or bladder dysfunction, saddle anesthesia, numbness or tingling in bilateral upper or lower extremities equally, muscle paralysis, weakness in bilateral upper or lower extremities equally or rash. Denies IV drug use. (DOLLY NIXON) - Related Data Allergies/Adverse Reactions: No Known Allergies Allergy (Verified 12/13/17 05:28) Past Medical History - General Information source: Patient - Social History Smoking Status: Current Every Day Smoker Frequency of alcohol use: daily Drug Abuse: None Family History: CAD, COPD Patient has suicidal ideation: No Patient has homicidal ideation: No - Past Medical History Cardiac Medical History: Reports: Hx Congestive Heart Failure, Hx Hypertension Neurological Medical History: Reports: Hx Cerebrovascular Accident Renal/ Medical History: Denies: Hx Peritoneal Dialysis - Immunizations Immunizations up to date: No Hx Diphtheria, Pertussis, Tetanus Vaccination: Yes <DOLLY NIXON - Last Filed: 12/20/17 07:48> Review of Systems - Review of Systems Constitutional: No symptoms reported EENT: No symptoms reported Cardiovascular: See HPI Respiratory: No symptoms reported Gastrointestinal: No symptoms reported Genitourinary: No symptoms reported Male Genitourinary: No symptoms reported Musculoskeletal: See HPI Skin: No symptoms reported Hematologic/Lymphatic: No symptoms reported Neurological/Psychological: See HPI <DOLLY NIXON - Last Filed: 12/20/17 07:48> Physical Exam <CARMEN RESENDIZ - Last Filed: 12/14/17 21:16> <DOLLY NIXON - Last Filed: 12/20/17 07:48> - Vital signs Vitals: Resp BP Pulse Ox 19 140/94 H 93 12/14/17 09:51 12/14/17 09:51 12/14/17 09:51 - Notes Notes: PHYSICAL EXAMINATION: GENERAL: Well-appearing, well-nourished and in no acute distress. HEAD: Atraumatic, normocephalic. EYES: Pupils equal round and reactive to light, extraocular movements intact, sclera anicteric, conjunctiva are normal. ENT: Nares patent, oropharynx clear without exudates. Moist mucous membranes. NECK: Normal range of motion, supple without lymphadenopathy LUNGS: Breath sounds clear to auscultation bilaterally and equal. No wheezes rales or rhonchi. HEART: Regular rate and rhythm without murmurs ABDOMEN: Soft, nontender, nondistended abdomen. No guarding, no rebound. No masses appreciated. Musculoskeletal: Normal range of motion, no pitting or edema. No cyanosis. NEUROLOGICAL: Cranial nerves grossly intact. Normal speech, normal gait. Normal sensory, motor exams. noted tremors to hands only when pt is lifting hands, otherwise pt is not tremoring. PERRLA, EOMI. Full motor and sensory function throughout. Prototype Carpenter + 2 equal bilaterally in BUE. Tongue midline. No pronator drift. No ataxia. Neck with APROM. Raises eyebrows. Strength is 5 out of 5 in bilateral upper and lower extremities equally.Speaks in full sentences. No weakness on one side. Romberg gait steady able to walk straight line. Able to recall 5 objects. PSYCH: Normal mood, normal affect. SKIN: Warm, Dry, normal turgor, no rashes or lesions noted. (DOLLY NIXON) Course - Laboratory Result Diagrams: 12/14/17 19:30 12/14/17 09:53 <CARMEN RESENDIZ - Last Filed: 12/14/17 21:16> - Laboratory Result Diagrams: 12/14/17 19:30 12/14/17 09:53 - EKG Interpretation by Me EKG shows normal: Sinus rhythm Rate: Normal Rhythm: NSR - 98bpm Voltage: Consistant with LVH When compared to previous EKG there are: No significant change <DOLLY NIXON - Last Filed: 12/20/17 07:48> - Re-evaluation Re-evalutation: 12/14/17 21:16 Transport arrived at the bedside. Vital signs remaining stable without any evidence of hypotension, tachycardia. Repeat troponin was 0.402. Patient denies any chest pain at this time. Stable for transfer. (CARMEN RESENDIZ) 12/14/17 15:38 1430-provider picked up chart to see patient mat 1420. 52-year-old male with a history of stage V kidney failure presents today with complaints of tremors that started yesterday after he took Thorazine in ER. Patient states that when he was home, he noted chest pain only with sitting upward when standing. States pain is fleeting lasting only approximately 10 seconds, does not radiate. Had substernal chest pain that lasted for less than 5 seconds when he was sitting up, did not feel any when he is sitting down. States he had a dozen episodes throughout the night. Denies any prior history of chest pain. His troponin is elevated at 0.495, EKG negative for STEMI. Repeat EKG and troponin 4 hours later is 0.408, CKMB 0.408, EKG shows a NON-STEMI. Yesterday patient was seen in the emergency room, troponin was done and it was only 0.056. patient reported chest pain at 1524, nitro 0.4 sublingual given, patient states this did have relief for him. Potassium 3.1, patient given 40 mEq of potassium chloride p.o. for hypokalemia. Creatinine 12.13 with with BUN and 94. TSH 0.23. CBC negative for any leukocytosis. Patient denies any nausea or vomiting, no coffee-ground emesis. Denies any melena. CT chest negative for any acute findings per radiology. Venous blood gas shows a pH of 7.47, with a bicarb of 30.7 with a carbon dioxide of 57. Patient remains afebrile, patient remains tachycardic at 105. Remains in normal sinus rhythm. Patient given 50 mg IVP Benadryl to help with possible extrapyramidal side effects. VQ scan negative for PE. simvastatin 40 mg p.o. given. [facility] contacted at 1800, discussed case with Dr. Vin Todd, filler wiper in [place] and [place] will accept patient to telemetry floor. Dr. High, from [facility], who is a hospitalist advised to start heparin drip due to creatinine being so elevated. Will await for bed, [facility] did accept patient. Patient is stable, afebrile. Disposition given to KAYY Meehan (DOLLY NIXON) - Vital Signs Vital signs: Temp Pulse Resp BP Pulse Ox 99.6 F 27 H 147/87 H 100 12/14/17 19:20 12/14/17 20:21 12/14/17 20:21 12/14/17 20:14 - Laboratory Laboratory results interpreted by me: 12/14/17 12/14/17 12/14/17 09:53 09:53 14:00 RBC 3.85 L Hgb 12.4 L Hct 36.9 L VBG pH VBG HCO3 Potassium 3.1 L Chloride 79 L Carbon Dioxide 41 H* Anion Gap 20 H BUN 94 H Creatinine 12.13 H Est GFR ( Amer) 5 L Est GFR (Non-Af Amer) 4 L Glucose 140 H Direct Bilirubin 0.5 H Creatine Kinase 513 H TSH Urine Protein 100 H 12/14/17 12/14/17 12/14/17 15:34 15:34 16:30 RBC Hgb Hct VBG pH 7.47 H VBG HCO3 40.7 H Potassium Chloride Carbon Dioxide Anion Gap BUN Creatinine Est GFR ( Amer) Est GFR (Non-Af Amer) Glucose Direct Bilirubin Creatine Kinase 432 H TSH 0.23 L Urine Protein 12/14/17 19:30 RBC 3.65 L Hgb 11.6 L Hct 34.8 L VBG pH VBG HCO3 Potassium Chloride Carbon Dioxide Anion Gap BUN Creatinine Est GFR ( Amer) Est GFR (Non-Af Amer) Glucose Direct Bilirubin Creatine Kinase TSH Urine Protein Discharge <CARMEN RESENDIZ - Last Filed: 12/14/17 21:16> <DOLLY NIXON - Last Filed: 12/20/17 07:48> - Discharge Clinical Impression: Hypokalemia, Chronic renal failure, stage 5, Heroin abuse, NSTEMI (non-ST elevated myocardial infarction) Condition: Good Disposition: [facility]
[2017-12-14 14:38] LABS: ABSOLUTE BASOPHILS # (AUTO) 0.1 10^3/uL (0.0-0.2); ABSOLUTE EOSINOPHILS # (AUTO) 0.1 10^3/uL (0.0-0.6); ABSOLUTE LYMPHOCYTES (AUTO) 1.7 10^3/uL (0.5-4.7); ABSOLUTE MONOCYTES (AUTO) 0.7 10^3/uL (0.1-1.4); ABSOLUTE NEUT (AUTO) 6.3 10^3/uL (1.7-8.2); BASOPHILS % (AUTO) 1.2 % (0-2); EOSINOPHILS % (AUTO) 1.2 % (0-6); HEMATOCRIT 36.9 % (37.9-51.0); HEMOGLOBIN 12.4 g/dL (13.5-17.0); LYMPHOCYTES % (AUTO) 18.7 % (13-45); MEAN CORPUSCULAR HEMOGLOBIN 32.3 pg (27.0-33.4); MEAN CORPUSCULAR HGB CONC 33.7 g/dL (32.0-36.0); MEAN CORPUSCULAR VOLUME 96 fl (80-97); MONOCYTES % (AUTO) 8.2 % (3-13); PLATELET COUNT 266 10^3/uL (150-450); RED BLOOD COUNT 3.85 10^6/uL (4.35-5.55); RED CELL DISTRIBUTION WIDTH 13.7 % (11.5-14.0); SEGMENTED NEUTROPHILS % (AUTO) 70.7 % (42-78); TOTAL CELLS COUNTED % (AUTO) 100 %
[2017-12-14 15:02] LABS: ALANINE AMINOTRANSFERASE 21 U/L (21-72); ALBUMIN 4.5 g/dL (3.5-5.0); ALKALINE PHOSPHATASE 72 U/L (38-126); ASPARTATE AMINO TRANSFERASE 34 U/L (17-59); BILIRUBIN,DIRECT 0.5 mg/dL (0.0-0.4); BILIRUBIN,TOTAL 0.6 mg/dL (0.2-1.3); BLOOD UREA NITROGEN 94 mg/dL (7-20); CALCIUM 9.2 mg/dL (8.4-10.2); CHLORIDE 79 mmol/L (98-107); CREATINE KINASE 513 U/L (55-170); GLUCOSE 140 mg/dL (75-110); POTASSIUM 3.1 mmol/L (3.6-5.0); SODIUM 139.6 mmol/L (137-145); TOTAL PROTEIN 7.9 g/dL (6.3-8.2)
[2017-12-14 15:12] LABS: ANION GAP 20 (5-19)
[2017-12-14 15:14] LABS: CREATINE KINASE MB 0.79 ng/mL (<4.55)
[2017-12-14 15:17] LABS: CARBON DIOXIDE 41 mmol/L (22-30)
[2017-12-14 15:18] LABS: TROPONIN I 0.495 ng/mL
[2017-12-14] MEDS ORDERED: NITROGLYCERIN 0.4 MG/TAB 25 TAB/BOTTLE SL PRN (15:24)
[2017-12-14 16:00] LABS: APPEARANCE,URINE CLEAR; BILIRUBIN,URINE NEGATIVE (NEGATIVE); COLOR,URINE YELLOW; GLUCOSE, URINE NEGATIVE (NEGATIVE); KETONES,URINE NEGATIVE (NEGATIVE); LEUKOCYTE ESTERASE,URINE NEGATIVE (NEGATIVE); NITRITE,URINE NEGATIVE (NEGATIVE); PROTEIN,URINE 100 mg/dL (NEGATIVE); URINE SPECIFIC GRAVITY 1.018; UROBILINOGEN,URINE NEGATIVE mg/dL (<2.0)
[2017-12-14 16:14] LABS: URINE AMPHETAMINES SCREEN NEGATIVE; URINE BARBITURATES SCREEN NEGATIVE; URINE BENZODIAZEPINES SCREEN NEGATIVE; URINE COCAINE SCREEN UNCONFIRMED POSITIVE; URINE MARIJUANA (THC) SCREEN NEGATIVE; URINE METHADONE SCREEN NEGATIVE; URINE PHENCYCLIDINE SCREEN NEGATIVE
[2017-12-14 16:45] LABS: VENOUS BLOOD BASE EXCESS 14.7 mmol/L; VENOUS BLOOD HCO3 40.7 mmol/L (20-32); VENOUS BLOOD PH 7.47 (7.30-7.42)
--- NOTE | 2017-12-14 17:12 | RADIOLOGY REPORT (SQ) ---
EXAM DESCRIPTION: CT CHEST WITHOUT COMPLETED DATE/TIME: 12/14/2017 4:47 pm REASON FOR STUDY: r/o pneumonia. Stage V CKD, unable to do CTA COMPARISON: None. TECHNIQUE: CT scan performed of the chest without intravenous contrast. Images reviewed with lung, soft tissue and bone windows. Reconstructed coronal and sagittal MPR images reviewed. All images st ored on PACS. All CT scanners at this facility use dose modulation, iterative reconstruction, and/or weight based d osing when appropriate to reduce radiation dose to as low as reasonably achievable (ALARA). [facility]: Dose Right [facility]: CareDose [facility]: Dose Right [facility]: Teradose 4D [facility]: Smart Farmainstant RADIATION DOSE: CT Rad equipment meets quality standard of care and radiation dose reduction techniq ues were employed. CTDIvol: 11.8 mGy. DLP: 405 mGy-cm. mGy. LIMITATIONS: No technical limitations. FINDINGS: LUNGS AND PLEURA: No masses, infiltrates, pneumothorax. No pleural effusions, calcificati ons. HILAR AND MEDIASTINAL STRUCTURES: No identified masses or abnormal nodes. No obvious aneurysm. HEART AND VASCULAR STRUCTURES: No aneurysm. No pericardial effusion. UPPER ABDOMEN: No significant findings. Cyst in the right kidney, not fully imaged. Limited exam. THYROID AND OTHER SOFT TISSUES: No masses. No adenopathy. BONES: No significant finding. HARDWARE: None in the chest. OTHER: No other significant findings. IMPRESSION: NO SIGNIFICANT FINDING ON NON-CONTRASTED CHEST CT. TECHNICAL DOCUMENTATION: JOB ID: [id number] Quality ID # [id number]: Final reports with documentation of one or more dose reduction techniques (e.g., Au tomated exposure control, adjustment of the mA and/or kV according to patient size, use of iterative reconstruction technique) 2010 [email or web address]- All Rights Reserved Reading location - IP/workstation name: [email or web address]
[2017-12-14] MEDS ORDERED: DIPHENHYDRAMINE HCL 50 MG/ML VIAL IV ONE (18:16)
--- NOTE | 2017-12-14 18:18 | EKG REPORT ---
SEVERITY:- ABNORMAL ECG - SINUS RHYTHM PROBABLE LEFT ATRIAL ABNORMALITY LEFT VENTRICULAR HYPERTROPHY PROLONGED QT INTERVAL : Confirmed by: Taj Huddleston MD 14-Dec-2017 18:17:23
--- NOTE | 2017-12-14 18:21 | RADIOLOGY REPORT (SQ) ---
EXAM DESCRIPTION: NM LUNG VENT/PERF SCAN COMPLETED DATE/TIME: 12/14/2017 6:10 pm REASON FOR STUDY: tachycardia, sob COMPARISON: Chest x-ray dated 12/13/2017. Chest CT dated 12/14/2017. RADIONUCLIDE AND DOSE: 5.88 millicuries TC-99m MAA Intravenous 33.5 millicuries TC-99m DTPA Inhaled aerosol TECHNIQUE: Eight views of the lungs acquired post ventilation of DTPA aerosol. Eight matching views of the lungs acquired following injection of MAA. LIMITATIONS: None. FINDINGS: VENTILATION: Symmetric and homogeneous distribution of DTPA aerosol during ventilatory pha se. No significant areas of photopenia. PERFUSION: Perfusion images with normal homogenous activity and no wedge-shaped or segmental defects. No ventilation-perfusion mismatches. OTHER: No other significant finding. IMPRESSION: NORMAL VENTILATION-PERFUSION LUNG SCAN. NEGATIVE FOR PULMONARY EMBOLI. TECHNICAL DOCUMENTATION: JOB ID: [id number] [employer]- All Rights Reserved Reading location - IP/workstation name: [email or web address]
[2017-12-14] MEDS ORDERED: SIMVASTATIN 10 MG TABLET PO ONE (18:24)
[2017-12-14] MEDS ORDERED: ASPIRIN 81 MG TABLET, CHEWABLE PO ONE (18:39)
[2017-12-14] MEDS ORDERED: HEPARIN SODIUM,PORCINE/D5W 25,000 UNIT/250 ML RTUINJ IV PRN (18:39)
[2017-12-14] MEDS ORDERED: POTASSIUM CHLORIDE 10 MEQ TABLET.SA PO ONE (18:44)
[2017-12-14] MEDS ORDERED: NORMAL SALINE 1000 ML 1,000 ML IV ONE (19:21)
[2017-12-14 19:42] LABS: ABSOLUTE BASOPHILS # (AUTO) 0.1 10^3/uL (0.0-0.2); ABSOLUTE EOSINOPHILS # (AUTO) 0.2 10^3/uL (0.0-0.6); ABSOLUTE LYMPHOCYTES (AUTO) 1.8 10^3/uL (0.5-4.7); ABSOLUTE MONOCYTES (AUTO) 0.7 10^3/uL (0.1-1.4); ABSOLUTE NEUT (AUTO) 5.1 10^3/uL (1.7-8.2); BASOPHILS % (AUTO) 1.2 % (0-2); HEMATOCRIT 34.8 % (37.9-51.0); HEMOGLOBIN 11.6 g/dL (13.5-17.0); LYMPHOCYTES % (AUTO) 23.1 % (13-45); MEAN CORPUSCULAR HEMOGLOBIN 31.8 pg (27.0-33.4); MEAN CORPUSCULAR HGB CONC 33.4 g/dL (32.0-36.0); MEAN CORPUSCULAR VOLUME 95 fl (80-97); MONOCYTES % (AUTO) 8.7 % (3-13); PLATELET COUNT 252 10^3/uL (150-450); RED BLOOD COUNT 3.65 10^6/uL (4.35-5.55); RED CELL DISTRIBUTION WIDTH 13.6 % (11.5-14.0); TOTAL CELLS COUNTED % (AUTO) 100 %; WHITE BLOOD COUNT 7.9 10^3/uL (4.0-10.5)
[2017-12-14 19:53] LABS: INTERNATIONAL RATION (INR) 0.94; PARTIAL THROMBOPLASTIN TIME 29.2 SEC (23.5-35.8); PROTHROMBIN TIME 13.3 SEC (11.4-15.4)
[2017-12-14 20:31] VITALS: BP 147/87
--- NOTE | 2017-12-15 07:46 | EKG REPORT ---
SEVERITY:- ABNORMAL ECG - SINUS RHYTHM PROBABLE LEFT ATRIAL ABNORMALITY PROBABLE LEFT VENTRICULAR HYPERTROPHY PROLONGED QT INTERVAL : Confirmed by: Taj Huddleston MD 15-Dec-2017 07:46:05
== END 2017-12-14 21:35 | disposition short-term general hospital (02) ==
LOC: ER 09:40
DX: I21.4 Non-ST elevation (NSTEMI) myocardial infarction (principal); F11.10 Opioid abuse, uncomplicated; E87.6 Hypokalemia; I12.0 Hypertensive chronic kidney disease with stage 5 chronic kidney disease or end stage renal disease; N18.5 Chronic kidney disease, stage 5; R25.1 Tremor, unspecified; R00.0 Tachycardia, unspecified; F17.200 Nicotine dependence, unspecified, uncomplicated; Z82.49 Family history of ischemic heart disease and other diseases of the circulatory system
CPT/HCPCS: 93005; 99285; 96361; 96375; 96365; 36415; 87086; 82553; 82550; 83735; 84443; 85025; 85610; 85730; 87088; 80053; 81001; 84484; 80307; 82803; 78582; 71250; 93010; A9540; A9567; J1644; J1200; J7030; Q9969

== ENCOUNTER 2018-01-23 05:37 | Day surgery (SDC) | payer MEDICAID ==
[2018-01-18 10:29] LABS: ABSOLUTE EOSINOPHILS # (AUTO) 0.4 10^3/uL (0.0-0.6); ABSOLUTE LYMPHOCYTES (AUTO) 1.3 10^3/uL (0.5-4.7); ABSOLUTE MONOCYTES (AUTO) 0.4 10^3/uL (0.1-1.4); ABSOLUTE NEUT (AUTO) 3.5 10^3/uL (1.7-8.2); BASOPHILS % (AUTO) 0.8 % (0-2); EOSINOPHILS % (AUTO) 7.4 % (0-6); HEMATOCRIT 34.1 % (37.9-51.0); HEMOGLOBIN 11.3 g/dL (13.5-17.0); LYMPHOCYTES % (AUTO) 23.2 % (13-45); MEAN CORPUSCULAR HEMOGLOBIN 32.6 pg (27.0-33.4); MEAN CORPUSCULAR HGB CONC 33.3 g/dL (32.0-36.0); MEAN CORPUSCULAR VOLUME 98 fl (80-97); MONOCYTES % (AUTO) 7.6 % (3-13); PLATELET COUNT 220 10^3/uL (150-450); RED BLOOD COUNT 3.48 10^6/uL (4.35-5.55); RED CELL DISTRIBUTION WIDTH 14.3 % (11.5-14.0); TOTAL CELLS COUNTED % (AUTO) 100 %; WHITE BLOOD COUNT 5.8 10^3/uL (4.0-10.5)
[2018-01-18 10:50] LABS: ANION GAP 16 (5-19); BLOOD UREA NITROGEN 27 mg/dL (7-20); CALCIUM 9.3 mg/dL (8.4-10.2); CARBON DIOXIDE 29 mmol/L (22-30); CHLORIDE 100 mmol/L (98-107); GLUCOSE 121 mg/dL (75-110); POTASSIUM 4.5 mmol/L (3.6-5.0); SODIUM 144.9 mmol/L (137-145)
--- NOTE | 2018-01-18 23:40 | EKG REPORT ---
SEVERITY:- ABNORMAL ECG - SINUS RHYTHM ATRIAL PREMATURE COMPLEX PROBABLE LEFT ATRIAL ABNORMALITY ANTERIOR Q WAVES, POSSIBLY DUE TO LVH : Confirmed by: Cristiane Velarde 18-Jan-2018 23:39:15
[~2018-01-23 05:37] MED LIST: CEFAZOLIN 1 GM/D5W RTU 1 GM/50 ML RTUPB IV PRN; NORMAL SALINE 1000 ML (RENAL PATIENTS) IV PRN
[2018-01-23] MEDS ORDERED: LIDOCAINE 0.5% INJ-PF (5 MG/ML) 50 ML SDV ONE (06:00)
[2018-01-23] MEDS ORDERED: BUPIVACAINE HCL 0.25 % INJ/PF (2.5 MG/1 ML) 30 ML VIAL ONE (06:00)
[2018-01-23] MEDS ORDERED: THROMBIN (BOVINE) TOPICAL 5000 UNIT VIAL ONE (06:00)
[2018-01-23] MEDS ORDERED: HEPARIN SODIUM,PORCINE/NS/PF 0 UNIT/0 ML RTUINJ IV ONE (06:00)
[2018-01-23] MEDS ORDERED: BACITRACIN INJ 50,000 UNIT VIAL ONE (06:01)
[2018-01-23] MEDS ORDERED: LIDOCAINE 1% INJ-PF (10 MG/ML) 30 ML SDV ONE (06:02)
[2018-01-23] MEDS ORDERED: HEPARIN SOD (PORCINE) 1,000 UNIT/ML 10 ML VIAL ONE (06:02)
[2018-01-23] MEDS ORDERED: NITROGLYCERIN/D5W 50 MG/250 ML RTUINJ IV ONE (06:06)
[2018-01-23] MEDS ORDERED: LIDOCAINE 2% INJ-PF (20 MG/ML) 10 ML AMPUL ONE (07:02)
[2018-01-23] MEDS ORDERED: MIDAZOLAM 2 MG/2 ML INJ ONE (07:02)
[2018-01-23] MEDS ORDERED: FENTANYL CITRATE INJ/PF 100 MCG/2 ML AMPUL ONE (07:02)
[2018-01-23] MEDS ORDERED: KETAMINE HCL INJ 500 MG/10 ML VIAL ONE (07:02)
[2018-01-23] MEDS ORDERED: DEXMEDETOMIDINE INJ 80 MCG/20 ML VIAL IV ONE (07:03)
[2018-01-23] MEDS ORDERED: PROPOFOL INJ 200 MG/20 ML VIAL IV ONE (07:03)
[2018-01-23] MEDS ORDERED: DIPHENHYDRAMINE HCL 50 MG/ML VIAL IV PRN (08:37)
[2018-01-23] MEDS ORDERED: OXYCODONE-ACETAMINOPHEN 5-325 MG TABLET PO PRN (08:37)
[2018-01-23] MEDS ORDERED: ONDANSETRON HCL INJ/PF 4 MG/2 ML SDV IV PRN (08:37)
[2018-01-23] MEDS ORDERED: MEPERIDINE HCL/PF INJ 25 MG/1 ML DISP.SYRIN IV PRN (08:37)
[2018-01-23] MEDS ORDERED: FENTANYL CITRATE INJ/PF 100 MCG/2 ML AMPUL IV PRN ×3 (08:37)
[2018-01-23] MEDS ORDERED: PROMETHAZINE HCL INJ 25 MG/1 ML VIAL IV PRN ×2 (08:37)
--- NOTE | 2018-01-23 10:36 | Discharge Summary ---
Discharge Summary (SDC) - Discharge Final Diagnosis: #1 chronic kidney disease. 2. Hypertension. Date of Surgery: 01/23/18 Discharge Date: 01/23/18 Condition: Good Treatment or Instructions: Discharge home [after recovery per ASU criteria]. Diet , [renal],as tolerated, when fully awake advance as tolerated. Activities within moderation encouraged. Follow up in my office by appointment in about [1 week]. Call for appointment. Leave wounds [covered], [keep clean and dry, until office visit in 1 week]. Hold of on school/work [until evaluation in office]. Meds per med rec. Percocet prescription. May shower [in 48 hrs], [try to keep operated area as dry as possible]. Prescriptions: Oxycodone HCl/Acetaminophen [Percocet 2.5-325 Mg Tablet] 1 each PO TID PRN #9 tablet PRN Reason: Referrals: RUFINO LIANG PA-C [Primary Care Provider] - Discharge Diet: Other (Comments) - Renal. Respiratory Treatments at Home: Deep Breathing/Coughing Discharge Activity: Activity As Tolerated Report the Following to Your Physician Immediately: Shortness of Breath, Unusual Bleeding
[2018-01-23] MEDS ORDERED: OXYCODONE-ACETAMINOPHEN 5-325 MG TABLET ONE (10:40)
--- NOTE | 2018-01-23 10:46 | Operative Report ---
Operative Report DATE OF SURGERY: 01/23/18 PREOPERATIVE DIAGNOSIS: #1 chronic kidney disease. 2. Hypertension. POSTOPERATIVE DIAGNOSIS: #1 chronic kidney disease. 2. Hypertension. OPERATION: Insertion of transposed left radiocephalic fistula SURGEON: JANEL MCNULTY MOLD INJECTOR: IDALMIS AMEZCUA ANESTHESIA: LMAC TISSUE REMOVED OR ALTERED: Not applicable. COMPLICATIONS: None. ESTIMATED BLOOD LOSS: 5 mL. INTRAOPERATIVE FINDINGS: A relatively small vein and artery vein estimated to be about 2.4 mm. Some dilatation accomplished with intravascular nitroglycerin pulsed heparinised solution. Bruit auscultated table after sometime in the recovery room. PROCEDURE: Operative Report PROCEDURE: After reviewing the procedure with the patient, he was taken to the operating room. The patient was sedated and the left upper extremity] prepared with chlorhexidine and draped out with sterile linen. After the "" universal timeout", in which it was verified that the patient [received IV antibiotics] the procedure commenced. The sterilely sheathed ultrasound probe was used to evaluate the left venous and arterial systems, pertinent to the previously done vein mapping. Local anesthesia was infiltrated and a longitudinal incision made over the lower forearm, near the wrist. Dissection proceeded through the subcutaneous tissues down to the cephalic vein. This was dissected out proximally and distally for about 2 cm. Likewise major branches. The skin over the radial artery was incised and the best dissected out for a distance of about 1.5 cm. Rubber loops were placed on either end. The patient was given 2500 units of heparin intravenously. The artery was controlled proximally and distally with rubber loops. An arteriotomy approximately [1 cm] in length was made, the artery was irrigated proximally and distally with heparinized solution. The transected vein was now spatulated it was then anastomosed end to end to side into the radial artery. This was done using a continuous suture of 6-0 Prolene. Controls of the fistula were now released and it was analyzed using a Doppler probe. Hemostasis was secured once optimal function was assured, the wound was irrigated with antibiotic containing solution and closed. Closure was done using interrupted 3-0 PDS for the subcutaneous tissues. The skin was closed using a continuous subcutaneous suture of 4-0 Monocryl which was reinforced with Steri-Strips over benzoin. I then left the operative field and returned with a stethoscope covered with a sterile Tegaderm dressing. This allowed external auscultation of the fistula. Auscultation was borderline. The procedure was concluded by applying a dressing over the surgical site. DICTATING PHYSICIAN: JANEL COLBY M.D.
[2018-01-23 12:20] VITALS: BP 121/81
[2018-01-23] MEDS ORDERED: GLYCOPYRROLATE INJ 0.4 MG/2 ML VIAL ONE (13:32)
[2018-01-23] MEDS ORDERED: ONDANSETRON HCL INJ/PF 4 MG/2 ML SDV ONE (13:32)
== END 2018-01-23 11:40 | disposition home or self-care (01) ==
LOC: OROUT 05:37
PROVIDERS: ATTEND Surgery
DX: I12.0 Hypertensive chronic kidney disease with stage 5 chronic kidney disease or end stage renal disease (principal); N18.6 End stage renal disease; Z99.2 Dependence on renal dialysis; F17.210 Nicotine dependence, cigarettes, uncomplicated; Z79.899 Other long term (current) drug therapy
CPT/HCPCS: 36818; 93005; 36415 ×2; 84132; 85025; 80048; 93010; J2250; J3490 ×7; J0690; J3010; J1644; J2405; S0020; J2704; 1844

== ENCOUNTER 2018-01-30 08:12 | Day surgery (SDC) | payer MEDICAID ==
[2018-01-30 08:46] LABS: ABSOLUTE BASOPHILS # (AUTO) 0.1 10^3/uL (0.0-0.2); ABSOLUTE EOSINOPHILS # (AUTO) 0.3 10^3/uL (0.0-0.6); ABSOLUTE LYMPHOCYTES (AUTO) 1.4 10^3/uL (0.5-4.7); ABSOLUTE MONOCYTES (AUTO) 0.5 10^3/uL (0.1-1.4); ABSOLUTE NEUT (AUTO) 3.9 10^3/uL (1.7-8.2); EOSINOPHILS % (AUTO) 4.9 % (0-6); HEMOGLOBIN 10.9 g/dL (13.5-17.0); LYMPHOCYTES % (AUTO) 22.4 % (13-45); MEAN CORPUSCULAR HEMOGLOBIN 33.4 pg (27.0-33.4); MEAN CORPUSCULAR HGB CONC 34.2 g/dL (32.0-36.0); MEAN CORPUSCULAR VOLUME 98 fl (80-97); MONOCYTES % (AUTO) 7.9 % (3-13); PLATELET COUNT 233 10^3/uL (150-450); RED BLOOD COUNT 3.27 10^6/uL (4.35-5.55); RED CELL DISTRIBUTION WIDTH 14.6 % (11.5-14.0); SEGMENTED NEUTROPHILS % (AUTO) 63.8 % (42-78); TOTAL CELLS COUNTED % (AUTO) 100 %; WHITE BLOOD COUNT 6.1 10^3/uL (4.0-10.5)
--- NOTE | 2018-01-30 08:57 | EKG REPORT ---
SEVERITY:- ABNORMAL ECG - SINUS RHYTHM FIRST DEGREE AV BLOCK PROBABLE LEFT ATRIAL ABNORMALITY PROBABLE LEFT VENTRICULAR HYPERTROPHY ST ELEVATION, CONSIDER ANTERIOR INJURY VS LVH : Confirmed by: Cristiane Velarde 30-Jan-2018 08:56:58
[2018-01-30 09:03] LABS: ANION GAP 12 (5-19); BLOOD UREA NITROGEN 26 mg/dL (7-20); CALCIUM 9.4 mg/dL (8.4-10.2); CARBON DIOXIDE 29 mmol/L (22-30); CHLORIDE 102 mmol/L (98-107); GLUCOSE 108 mg/dL (75-110); INTERNATIONAL RATION (INR) 0.95; PROTHROMBIN TIME 13.2 SEC (11.4-15.4); SODIUM 143.2 mmol/L (137-145)
[2018-01-30 09:04] LABS: PARTIAL THROMBOPLASTIN TIME 32.8 SEC (23.5-35.8)
[2018-01-30] MEDS ORDERED: MIDAZOLAM 2 MG/2 ML INJ ONE (10:00)
[2018-01-30] MEDS ORDERED: LIDOCAINE 0.5% INJ-PF (5 MG/ML) 50 ML SDV ONE ×2 (10:00→11:10)
[2018-01-30] MEDS ORDERED: FENTANYL CITRATE INJ/PF 100 MCG/2 ML AMPUL ONE (10:01)
[2018-01-30] MEDS ORDERED: BACITRACIN INJ 50,000 UNIT VIAL ONE (10:01)
[2018-01-30] MEDS ORDERED: CEFAZOLIN INJ 1 GM VIAL ONE (10:22)
--- NOTE | 2018-01-30 11:30 | Operative Report ---
Operative Report DATE OF SURGERY: 01/30/18 PREOPERATIVE DIAGNOSIS: 1. Malfunctioning PermCath. 2. End-stage renal disease on hemodialysis. 3. Hypertension. POSTOPERATIVE DIAGNOSIS: 1. Malfunctioning PermCath. 2. End-stage renal disease on hemodialysis. 3. Hypertension. OPERATION: 1. Superior vena cava angiogram. 2. PermCath insertion. 3. Removal of old permacatheter. SURGEON: JANEL MCNULTY MILITARY ANALYST: None. ANESTHESIA: Moderate Sedation TISSUE REMOVED OR ALTERED: Not applicable. COMPLICATIONS: None. ESTIMATED BLOOD LOSS: 5 mL. INTRAOPERATIVE FINDINGS: Of an existing permacatheter which has been malfunctioning. Superior vena cava angiogram demonstrates a wide superior vena cava, easily 3 cm. The right atrium is somewhat small in size which may contribute to the poor functioning of the catheter. A fresh permacatheter was inserted via the existing site in the right internal jugular vein. There was easy egress of blood and ingress of heparin. The cath angiogram showed the above findings PROCEDURE: After obtaining informed consent, the patient was taken to the [High Pressure Cleaner] and positioned supine. The [right neck] and chest were prepared with chlorhexidine and draped out with sterile linen. After the " universal timeout", in which it was verified that the patient continued to receive antibiotic, the procedure commenced. Local anesthesia was infiltrated adjacent to the catheter in the neck. Access into the [right internal jugular] vein was obtained using the proximal portion of the existing catheter. The catheter was transected and replaced with a 0.035 guidewire. A 7 Brazilian introducer was now placed over the guidewire and used to perform a superior vena cava angiogram. The results as noted. The guidewire was then used to place a 10 Brazilian introducer with peel- away sheath. A 23 cm long [split catheter] was now positioned over the chest and an exit site marked and locally anesthetized ,the catheter was placed between the 2 incisions. Proximally, the catheter was now positioned using a peel-away sheath, after dilation. Easy ingress of heparinized solution and egress of blood obtained through both ports. A completion angiogram was done by injecting contrast. The findings were as dictated. The neck incision was now closed using interrupted 3-0 PDS to the subcutaneous tissues, the catheter was anchored at the exit site using 3-0 PDS. A Biopatch device was placed, Steri-Strips benzoin and dressings. Local anesthesia was now infiltrated around the exit site of the old catheter, the cuff dissected free and it was removed. A firm gauze dressing was now placed adjacent to the catheter. Dressings were applied and the procedure concluded. Exposure time: [0.4 minutes]. Exposure: 12.81 mg. Contrast amount: 25 mils of [id number] low osmolality. Copies of the dictated operative report for Dr. Janel Sheffield MD.concluded. Copies of the dictated operative report for Dr. Janel Sheffield MD.
--- NOTE | 2018-01-30 11:34 | RADIOLOGY REPORT (SQ) ---
EXAM DESCRIPTION: TUNNELED CENTRAL LINE; GUIDANCE FLUOROSCOPIC COMPLETED DATE/TIME: 01/30/2018 11:09 am; 01/30/2018 11:08 am REASON FOR STUDY: N18.6 END STAGE RENAL DISEASE; N18.6 N18.6 END STAGE RENAL DISEASE COMPARISON: CT chest 12/14/2017 FLUOROSCOPY TIME: Less than 10 seconds 24 digital radiographic images saved to PACS. TECHNIQUE: Intra-operative images acquired during surgical procedure to evaluate progress. NUMBER OF IMAGES: 24 digital radiographic images LIMITATIONS: None. FINDINGS: Intra procedural imaging and fluoro during placement of a right-sided central venous dialy sis catheter with the tip in the right atrium. IMPRESSION: Intra procedural imaging and fluoro COMMENT: Quality ID [id number]: Final reports for procedures using fluoroscopy that document radiation exp osure indices, or exposure time and number of fluorographic images (if radiation exposure indices are not available) Please consult full operative report of the attending physician for description of the procedure. TECHNICAL DOCUMENTATION: JOB ID: [id number] [employer]- All Rights Reserved Reading location - IP/workstation name: [email or web address]
--- NOTE | 2018-01-30 11:34 | RADIOLOGY REPORT (SQ) ---
EXAM DESCRIPTION: TUNNELED CENTRAL LINE; GUIDANCE FLUOROSCOPIC COMPLETED DATE/TIME: 01/30/2018 11:09 am; 01/30/2018 11:08 am REASON FOR STUDY: N18.6 END STAGE RENAL DISEASE; N18.6 N18.6 END STAGE RENAL DISEASE COMPARISON: CT chest 12/14/2017 FLUOROSCOPY TIME: Less than 10 seconds 24 digital radiographic images saved to PACS. TECHNIQUE: Intra-operative images acquired during surgical procedure to evaluate progress. NUMBER OF IMAGES: 24 digital radiographic images LIMITATIONS: None. FINDINGS: Intra procedural imaging and fluoro during placement of a right-sided central venous dialy sis catheter with the tip in the right atrium. IMPRESSION: Intra procedural imaging and fluoro COMMENT: Quality ID [id number]: Final reports for procedures using fluoroscopy that document radiation exp osure indices, or exposure time and number of fluorographic images (if radiation exposure indices are not available) Please consult full operative report of the attending physician for description of the procedure. TECHNICAL DOCUMENTATION: JOB ID: [id number] [employer]- All Rights Reserved Reading location - IP/workstation name: [email or web address] AT [email or web address]
[2018-01-30 12:51] VITALS: BP 142/82
== END 2018-01-30 13:39 | disposition home or self-care (01) ==
LOC: CCL 08:12
PROVIDERS: ATTEND Surgery
DX: I12.0 Hypertensive chronic kidney disease with stage 5 chronic kidney disease or end stage renal disease (principal); N18.6 End stage renal disease; N52.9 Male erectile dysfunction, unspecified; F17.210 Nicotine dependence, cigarettes, uncomplicated; Z79.899 Other long term (current) drug therapy; Z99.2 Dependence on renal dialysis
CPT/HCPCS: 36415; 85025; 85610; 85730; 80048; 36589; 36558; 76937; 77001; 93005; 93010; C1713; C1752; Q9967; J2250; J3490 ×2; J0690; J3010; J1644

== ENCOUNTER 2018-02-13 05:31 | Day surgery (SDC) | payer MEDICAID ==
[2018-02-06 11:00] LABS: HEMATOCRIT 32.9 % (37.9-51.0); MEAN CORPUSCULAR HGB CONC 33.3 g/dL (32.0-36.0); MEAN CORPUSCULAR VOLUME 96 fl (80-97); PLATELET COUNT 276 10^3/uL (150-450); RED BLOOD COUNT 3.43 10^6/uL (4.35-5.55); RED CELL DISTRIBUTION WIDTH 14.2 % (11.5-14.0); WHITE BLOOD COUNT 7.3 10^3/uL (4.0-10.5)
[2018-02-06 11:25] LABS: ANION GAP 18 (5-19); BLOOD UREA NITROGEN 36 mg/dL (7-20); CALCIUM 9.6 mg/dL (8.4-10.2); CARBON DIOXIDE 29 mmol/L (22-30); CHLORIDE 98 mmol/L (98-107); GLUCOSE 107 mg/dL (75-110); POTASSIUM 4.6 mmol/L (3.6-5.0); SODIUM 144.5 mmol/L (137-145)
--- NOTE | 2018-02-06 13:39 | EKG REPORT ---
SEVERITY:- ABNORMAL ECG - SINUS RHYTHM PROBABLE LEFT ATRIAL ABNORMALITY PROBABLE LEFT VENTRICULAR HYPERTROPHY ANTERIOR ST ELEVATION, PROBABLY DUE TO LVH : Confirmed by: Taj Huddleston MD 06-Feb-2018 13:39:20
[2018-02-13] MEDS ORDERED: HEPARIN SOD (PORCINE) 1,000 UNIT/ML 10 ML VIAL ONE ×2 (06:35→07:31)
[2018-02-13] MEDS ORDERED: BACITRACIN INJ 50,000 UNIT VIAL ONE (06:35)
[2018-02-13] MEDS ORDERED: LIDOCAINE 0.5% INJ-PF (5 MG/ML) 50 ML SDV ONE (06:35)
[2018-02-13] MEDS ORDERED: LIDOCAINE 1% INJ-PF (10 MG/ML) 30 ML SDV ONE (06:35)
[2018-02-13] MEDS ORDERED: BUPIVACAINE HCL 0.25 % INJ/PF (2.5 MG/1 ML) 30 ML VIAL ONE (06:35)
[2018-02-13] MEDS ORDERED: FENTANYL CITRATE INJ/PF 100 MCG/2 ML AMPUL ONE (06:41)
[2018-02-13] MEDS ORDERED: MIDAZOLAM 2 MG/2 ML INJ ONE (06:41)
[2018-02-13] MEDS ORDERED: PROPOFOL INJ 200 MG/20 ML VIAL IV ONE ×2 (06:41→08:25)
[2018-02-13] MEDS ORDERED: ONDANSETRON HCL INJ/PF 4 MG/2 ML SDV ONE (06:41)
[2018-02-13] MEDS ORDERED: LIDOCAINE 2% INJ-PF (20 MG/ML) 10 ML AMPUL ONE (06:41)
[2018-02-13] MEDS ORDERED: NITROGLYCERIN/D5W 50 MG/250 ML RTUINJ IV ONE (07:16)
[2018-02-13] MEDS ORDERED: CEFAZOLIN 1 GM/D5W RTU 1 GM/50 ML RTUPB IV ONE (07:59)
[2018-02-13] MEDS ORDERED: ONDANSETRON HCL INJ/PF 4 MG/2 ML SDV IV PRN (08:46)
[2018-02-13] MEDS ORDERED: FENTANYL CITRATE INJ/PF 100 MCG/2 ML AMPUL IV PRN ×3 (08:46)
[2018-02-13] MEDS ORDERED: DIPHENHYDRAMINE HCL 50 MG/ML VIAL IV PRN (08:46)
[2018-02-13] MEDS ORDERED: OXYCODONE-ACETAMINOPHEN 5-325 MG TABLET PO PRN ×2 (08:46)
[2018-02-13] MEDS ORDERED: PROMETHAZINE HCL INJ 25 MG/1 ML VIAL IV PRN ×2 (08:46)
[2018-02-13] MEDS ORDERED: MEPERIDINE HCL/PF INJ 25 MG/1 ML DISP.SYRIN IV PRN (08:46)
[2018-02-13] MEDS ORDERED: MORPHINE SULFATE 10 MG/ML INJ IV PRN (08:46)
[2018-02-13] MEDS ORDERED: SUCCINYLCHOLINE CHLORIDE INJ 200 MG/10 ML VIAL ONE (09:30)
[2018-02-13] MEDS ORDERED: GLYCOPYRROLATE INJ 0.4 MG/2 ML VIAL ONE (09:30)
--- NOTE | 2018-02-13 10:30 | Discharge Summary ---
Discharge Summary (SDC) - Discharge Final Diagnosis: #1 end-stage renal disease on hemodialysis. 2. PermCath in place. 3. AV fistula. 4. Tobacco use disorder. 5. History of drug use. 6. Hypertension. Date of Surgery: 02/13/18 Discharge Date: 02/13/18 Treatment or Instructions: Discharge home [after recovery per ASU criteria]. Diet , [renal],as tolerated, when fully awake advance as tolerated. Activities within moderation encouraged. Follow up in my office by appointment in about [1 week]. Call for appointment. Leave wounds [covered], [keep clean and dry, until office visit in 1 week]. Hold of on school/work [until evaluation in office]. Meds per med rec. Percocet. May shower [in 48 hrs], [try to keep operated area as dry as possible]. Prescriptions: Oxycodone HCl/Acetaminophen [Percocet 5-325 mg Tablet] 1 tab PO ASDIR PRN #15 tab PRN Reason: Referrals: RUFINO LIANG PA-C [Primary Care Provider] - Discharge Diet: Other (Comments) - Renal Respiratory Treatments at Home: Deep Breathing/Coughing Discharge Activity: Activity As Tolerated Report the Following to Your Physician Immediately: Shortness of Breath, Unusual Bleeding
[2018-02-13] MEDS: FENTANYL CITRATE INJ/PF 100 MCG/2 ML AMPUL ONE ×2 (10:35→10:40)
--- NOTE | 2018-02-13 10:37 | Operative Report ---
Operative Report DATE OF SURGERY: 02/13/18 PREOPERATIVE DIAGNOSIS: #1 end-stage renal disease on hemodialysis. 2. PermCath in place. 3. AV fistula. 4. Tobacco use disorder. 5. History of drug use. 6. Hypertension. POSTOPERATIVE DIAGNOSIS: #1 end-stage renal disease on hemodialysis. 2. PermCath in place. 3. AV fistula. 4. Tobacco use disorder. 5. History of drug use. 6. Hypertension. OPERATION: Insertion of right transposed basilic vein fistula, first stage. SURGEON: JANEL MCNULTY DIRECTOR PRODUCT MANAGEMENT: IDALMIS AMEZCUA ANESTHESIA: LMAC TISSUE REMOVED OR ALTERED: Not applicable. COMPLICATIONS: None. ESTIMATED BLOOD LOSS: 5 mL. INTRAOPERATIVE FINDINGS: Of an acceptable basilic vein up to 2 cm below the elbow. Accepting a 4 mm coronary dilator with ease. In this patient the cephalic vein has been much used for plasma donations with heavy scarring just below the elbow. The cephalic vein ends in the basilic vein about 2 cm above the elbow. The cephalic vein at this point was really thick-walled and with virtually no lumen. Therefore unusable. The basilic vein was essentially soft and supple and a convenient branch point was located which was used for anastomosis. Anastomosis was transposed to the brachial artery immediately above the elbow. Good bruit and appropriate Doppler signals at the end of the procedure. It is to be noted that the artery was on the small size estimated to be about 2.5-3 mm in this small bodied man. It is anticipated that second stage fistula insertion can be planned for about a month, hopefully the veins are enlarged subsequently. PROCEDURE: Operative Report PROCEDURE: After reviewing the procedure with the patient, he was taken to the operating room. The patient was sedated and the [right upper extremity] prepared with chlorhexidine and draped out with sterile linen. After the "" universal timeout", in which it was verified that the patient [received IV antibiotics] the procedure commenced. The sterilely sheathed ultrasound probe was used to evaluate the right upper venous and arterial systems, pertinent to the previously done vein mapping. Local anesthesia was infiltrated and a longitudinal incision made over the lower arm near the antecubital fossa. Dissection proceeded through the subcutaneous tissues down to the basilic vein. The vein was dissected out proximally and distally for about 4 cm. Likewise major branches. A second incision was made laterally over the distal brachial artery pulsation. The brachial artery dissected out for a distance of about 1.5 cm. Rubber loops were placed on either end. The patient was given 2500 units of heparin intravenously. Coronary dilators were accepted [up to 4 mm] in the vein. The artery was controlled proximally and distally with rubber loops. An arteriotomy approximately [1.5 cm] in length was made, the artery was irrigated proximally and distally with heparinized solution. The transected vein was now spatulated, it was then anastomosed end to end to side into the brachial artery. This was done using a continuous suture of 6-0 Prolene. Controls of the fistula were now released and it was analyzed using a Doppler probe. Hemostasis was secured once optimal function was assured, the wound was irrigated with antibiotic containing solution and closed. Closure was done using interrupted 3-0 PDS for the subcutaneous tissues. The skin was closed using a continuous subcutaneous suture of 4-0 Monocryl which was reinforced with Steri-Strips over benzoin. I then left the operative field and returned with a stethoscope covered with a sterile Tegaderm dressing. This allowed external auscultation of the fistula. Auscultation was [satisfactory]. DICTATING PHYSICIAN: JANEL COLBY M.D.
[2018-02-13] MEDS ORDERED: OXYCODONE-ACETAMINOPHEN 5-325 MG TABLET ONE (11:20)
[2018-02-13 12:17] VITALS: BP 149/78
== END 2018-02-13 12:15 | disposition home or self-care (01) ==
LOC: OROUT 05:31
PROVIDERS: ATTEND Surgery
DX: I12.0 Hypertensive chronic kidney disease with stage 5 chronic kidney disease or end stage renal disease (principal); N18.6 End stage renal disease; I50.9 Heart failure, unspecified; F17.210 Nicotine dependence, cigarettes, uncomplicated; Z79.899 Other long term (current) drug therapy; Z99.2 Dependence on renal dialysis; Z86.73 Personal history of transient ischemic attack (TIA), and cerebral infarction without residual deficits
CPT/HCPCS: 93005; 36415 ×2; 84132; 85027; 80048; 93010; 36821; J2250; J3490 ×6; J0690; J3010; J1644; J0330; J2405; S0020; J2704; 1844

== ENCOUNTER 2018-02-19 08:06 | Day surgery (SDC) | payer MEDICAID ==
[2018-02-19 08:56] LABS: HEMATOCRIT 26.4 % (37.9-51.0); HEMOGLOBIN 8.9 g/dL (13.5-17.0); MEAN CORPUSCULAR HGB CONC 33.9 g/dL (32.0-36.0); MEAN CORPUSCULAR VOLUME 97 fl (80-97); PLATELET COUNT 269 10^3/uL (150-450); RED BLOOD COUNT 2.71 10^6/uL (4.35-5.55); RED CELL DISTRIBUTION WIDTH 14.9 % (11.5-14.0); WHITE BLOOD COUNT 6.7 10^3/uL (4.0-10.5)
[2018-02-19 09:17] LABS: INTERNATIONAL RATION (INR) 0.96; PROTHROMBIN TIME 13.3 SEC (11.4-15.4)
[2018-02-19 09:18] LABS: PARTIAL THROMBOPLASTIN TIME 34.9 SEC (23.5-35.8)
[2018-02-19 09:20] LABS: ANION GAP 12 (5-19); BLOOD UREA NITROGEN 40 mg/dL (7-20); CALCIUM 9.4 mg/dL (8.4-10.2); CARBON DIOXIDE 26 mmol/L (22-30); CHLORIDE 106 mmol/L (98-107); GLUCOSE 99 mg/dL (75-110); POTASSIUM 4.2 mmol/L (3.6-5.0)
[2018-02-19] MEDS ORDERED: LIDOCAINE 0.5% INJ-PF (5 MG/ML) 50 ML SDV ONE (09:58)
[2018-02-19] MEDS ORDERED: MIDAZOLAM 2 MG/2 ML INJ ONE (09:59)
[2018-02-19] MEDS ORDERED: FENTANYL CITRATE INJ/PF 100 MCG/2 ML AMPUL ONE (10:00)
[2018-02-19] MEDS ORDERED: BACITRACIN INJ 50,000 UNIT VIAL ONE (10:00)
[2018-02-19 10:18] LABS: ABSOLUTE LYMPHOCYTES# (MANUAL) 1.1 10^3/uL (0.5-4.7); ABSOLUTE MONOCYTES # (MANUAL) 0.5 10^3/uL (0.1-1.4); ABSOLUTE NEUTROPHILS# (MANUAL) 4.6 10^3/uL (1.7-8.2); BAND NEUTROPHILS % (MANUAL) 1 % (3-5); BASOPHILS % (MANUAL) 1 % (0-2); EOSINOPHILS % (MANUAL) 6 % (0-6); LYMPHOCYTES % (MANUAL) 17 % (13-45); MONOCYTES % (MANUAL) 8 % (3-13); SEGMENTED NEUTROPHILS % (MAN) 67 % (42-78); TOTAL CELLS COUNTED 100
[2018-02-19 10:19] LABS: ANISOCYTOSIS SLIGHT; HYPOCHROMASIA SLIGHT; PLATELET COMMENT ADEQUATE; POLYCHROMASIA SLIGHT; TOXIC GRANULATION SLIGHT
[2018-02-19] MEDS ORDERED: CEFAZOLIN INJ 1 GM VIAL ONE (10:38)
--- NOTE | 2018-02-19 11:17 | Discharge Summary ---
Discharge Summary (SDC) - Discharge Final Diagnosis: #1 malfunctioning PermCath catheter. 2. End-stage renal disease on hemodialysis. 3. Hypertension. Date of Surgery: 02/19/18 Discharge Date: 02/19/18 Condition: Good Treatment or Instructions: Discharge home [after recovery per ASU criteria]. Diet , [renal],as tolerated, when fully awake advance as tolerated. Activities within moderation encouraged. Follow up in my office by appointment in about [1 week]. Call for appointment. Leave wounds [covered], [keep clean and dry, until office visit in 1 week]. Hold of on school/work [until evaluation in office]. Meds per med rec. May shower [in 48 hrs], [try to keep operated area as dry as possible]. Referrals: RUFINO LIANG PA-C [Primary Care Provider] - Discharge Diet: Other (Comments) - Renal. Discharge Activity: Activity As Tolerated Report the Following to Your Physician Immediately: Shortness of Breath, Unusual Bleeding
--- NOTE | 2018-02-19 11:25 | Operative Report ---
Operative Report DATE OF SURGERY: 02/19/18 PREOPERATIVE DIAGNOSIS: #1 malfunctioning PermCath catheter. 2. End-stage renal disease on hemodialysis. 3. Hypertension. POSTOPERATIVE DIAGNOSIS: #1 malfunctioning PermCath catheter. 2. End-stage renal disease on hemodialysis. 3. Hypertension. OPERATION: 1. Catheter angiogram. 2. Balloon angioplasty of central fibrin sheath. 3. Insertion of new PermCath catheter using access old access in right internal jugular vein. SURGEON: JANEL MCNULTY FOREST MANAGEMENT TEACHER: None. ANESTHESIA: Moderate Sedation TISSUE REMOVED OR ALTERED: Not applicable. COMPLICATIONS: None. ESTIMATED BLOOD LOSS: 5 mL. INTRAOPERATIVE FINDINGS: Of a well founded PermCath catheter. No push or pull from the central ports. Angiogram demonstrates a substantial superior vena cava , possible fibril sheath. Small right atrium. the inserted along the length and the tip as far down in the right atrium as possible. Easy portion pulled from both ports. Cath angiogram demonstrates position within the right atrium. Smooth flow of contrast through the right atrium, ventricle and pulmonary outflow tract. PROCEDURE: After obtaining informed consent, the patient was taken to the [Locomotive Oiler] and positioned supine. The [right neck] and chest were prepared with chlorhexidine and draped out with sterile linen. After the " universal timeout", in which it was verified that the patient continued to receive antibiotic, the procedure commenced. An angiogram was performed through the existing catheter. Also aspiration of the ports done easy aspiration through the blue or proximal port no aspiration through the red or distal port. Local anesthesia was infiltrated in the access scar of the right neck. The previous scar excised and discarded. Dissection proceeded down to the existing catheter which was transected and the proximal portion replaced with a 0.035 guidewire. This was used to place a 8 Dominican introducer. This allowed insertion of 8 mm, 6 cm long angioplasty balloon which was used to inflate in the distal superior vena cava so as to eradicate any fibrin sheath. The catheter was withdrawn. .035 guidewire was replaced and the introducer removed. The PermCath introducer was now placed. An exit site was ascertained and locally anesthetized as was the intervening subcutaneous tract. A 27 cm long PermCath of was now positioned over the chest and an exit site marked and locally anesthetized ,the catheter was placed between the 2 incisions. Proximally, the catheter was now positioned using a peel-away sheath, after dilation. Easy ingress of heparinized solution and egress of blood obtained through both ports. A completion angiogram was done by injecting contrast. The findings were as dictated. The neck incision was now closed using interrupted 3-0 PDS to the subcutaneous tissues, the catheter was anchored at the exit site using 3- 0 PDS. A Biopatch device was now placed adjacent to the catheter. Dressings were applied and the procedure concluded. Exposure time: [0.3 minutes]. Exposure: [45.35 Sophy lucero. Contrast amount: [20 mL] of [id number] low osmolality. Copies of the dictated operative report for Dr. Janel Sheffield MD.concluded. Copies of the dictated operative report for Dr. Janel Sheffield MD.
[2018-02-19] MEDS ORDERED: OXYCODONE-ACETAMINOPHEN 5-325 MG TABLET ONE (11:56)
[2018-02-19 13:03] VITALS: BP 195/112
--- NOTE | 2018-02-19 13:22 | RADIOLOGY REPORT (SQ) ---
EXAM DESCRIPTION: TUNNELED CENTRAL LINE; ANGIOPLASTY BRACHIOCEPHALIC; GUIDANCE FLUOROSCOPIC; REMOVAL CENTRAL TUNNELED LINE COMPLETED DATE/TIME: 02/19/2018 11:04 am; 02/19/2018 11:03 am REASON FOR STUDY: N18.6 END STAGE RENAL DISEASE; NEED FOR VASCULAR ACCESS N18.6 END STAGE RENAL DIS EASE COMPARISON: None. FLUOROSCOPY TIME: 0.3 minutes. 17 images saved to PACS. TECHNIQUE: Intra-operative images acquired during surgical procedure to evaluate progress. NUMBER OF IMAGES: 17 images. LIMITATIONS: None. FINDINGS: Images of the chest acquired during catheter placement. IMPRESSION: IMAGE(S) OBTAINED DURING PROCEDURE. COMMENT: Quality ID 145: Final reports for procedures using fluoroscopy that document radiation exp osure indices, or exposure time and number of fluorographic images (if radiation exposure indices are not available) Please consult full operative report of the attending physician for description of the procedure. TECHNICAL DOCUMENTATION: JOB ID: [id number] [employer]- All Rights Reserved Reading location - IP/workstation name: [email or web address]
--- NOTE | 2018-02-19 13:22 | RADIOLOGY REPORT (SQ) ---
EXAM DESCRIPTION: TUNNELED CENTRAL LINE; ANGIOPLASTY BRACHIOCEPHALIC; GUIDANCE FLUOROSCOPIC; REMOVAL CENTRAL TUNNELED LINE COMPLETED DATE/TIME: 02/19/2018 11:04 am; 02/19/2018 11:03 am REASON FOR STUDY: N18.6 END STAGE RENAL DISEASE; NEED FOR VASCULAR ACCESS N18.6 END STAGE RENAL DIS EASE COMPARISON: None. FLUOROSCOPY TIME: 0.3 minutes. 17 images saved to PACS. TECHNIQUE: Intra-operative images acquired during surgical procedure to evaluate progress. NUMBER OF IMAGES: 17 images. LIMITATIONS: None. FINDINGS: Images of the chest acquired during catheter placement. IMPRESSION: IMAGE(S) OBTAINED DURING PROCEDURE. COMMENT: Quality ID 145: Final reports for procedures using fluoroscopy that document radiation exp osure indices, or exposure time and number of fluorographic images (if radiation exposure indices are not available) Please consult full operative report of the attending physician for description of the procedure. TECHNICAL DOCUMENTATION: JOB ID: [id number] [employer]- All Rights Reserved Reading location - IP/workstation name: [email or web address]
--- NOTE | 2018-02-19 13:22 | RADIOLOGY REPORT (SQ) ---
EXAM DESCRIPTION: TUNNELED CENTRAL LINE; ANGIOPLASTY BRACHIOCEPHALIC; GUIDANCE FLUOROSCOPIC; REMOVAL CENTRAL TUNNELED LINE COMPLETED DATE/TIME: 02/19/2018 11:04 am; 02/19/2018 11:03 am REASON FOR STUDY: N18.6 END STAGE RENAL DISEASE; NEED FOR VASCULAR ACCESS N18.6 END STAGE RENAL DIS EASE COMPARISON: None. FLUOROSCOPY TIME: 0.3 minutes. 17 images saved to PACS. TECHNIQUE: Intra-operative images acquired during surgical procedure to evaluate progress. NUMBER OF IMAGES: 17 images. LIMITATIONS: None. FINDINGS: Images of the chest acquired during catheter placement. IMPRESSION: IMAGE(S) OBTAINED DURING PROCEDURE. COMMENT: Quality ID 145: Final reports for procedures using fluoroscopy that document radiation exp osure indices, or exposure time and number of fluorographic images (if radiation exposure indices are not available) Please consult full operative report of the attending physician for description of the procedure. TECHNICAL DOCUMENTATION: JOB ID: [id number] [employer]- All Rights Reserved Reading location - IP/workstation name: [email or web address]
--- NOTE | 2018-02-19 13:22 | RADIOLOGY REPORT (SQ) ---
EXAM DESCRIPTION: TUNNELED CENTRAL LINE; ANGIOPLASTY BRACHIOCEPHALIC; GUIDANCE FLUOROSCOPIC; REMOVAL CENTRAL TUNNELED LINE COMPLETED DATE/TIME: 02/19/2018 11:04 am; 02/19/2018 11:03 am REASON FOR STUDY: N18.6 END STAGE RENAL DISEASE; NEED FOR VASCULAR ACCESS N18.6 END STAGE RENAL DIS EASE COMPARISON: None. FLUOROSCOPY TIME: 0.3 minutes. 17 images saved to PACS. TECHNIQUE: Intra-operative images acquired during surgical procedure to evaluate progress. NUMBER OF IMAGES: 17 images. LIMITATIONS: None. FINDINGS: Images of the chest acquired during catheter placement. IMPRESSION: IMAGE(S) OBTAINED DURING PROCEDURE. COMMENT: Quality ID 145: Final reports for procedures using fluoroscopy that document radiation exp osure indices, or exposure time and number of fluorographic images (if radiation exposure indices are not available) Please consult full operative report of the attending physician for description of the procedure. TECHNICAL DOCUMENTATION: JOB ID: [id number] [employer]- All Rights Reserved Reading location - IP/workstation name: [email or web address]
== END 2018-02-19 13:15 | disposition home or self-care (01) ==
LOC: CCL 08:06
PROVIDERS: ATTEND Surgery
DX: I12.0 Hypertensive chronic kidney disease with stage 5 chronic kidney disease or end stage renal disease (principal); N18.6 End stage renal disease; Z99.2 Dependence on renal dialysis; N52.9 Male erectile dysfunction, unspecified; F17.210 Nicotine dependence, cigarettes, uncomplicated; Z79.899 Other long term (current) drug therapy; F14.90 Cocaine use, unspecified, uncomplicated; F19.90 Other psychoactive substance use, unspecified, uncomplicated
CPT/HCPCS: 36415; 85025; 85610; 85730; 80048; 36589; 36907; 36558; 77001; C1725; C1752; Q9967; J2250; J3490 ×2; J0690; J3010; J1644

== ENCOUNTER → 2018-04-20 | Outpatient (CLI) | payer MEDICAID | LOC: SD 16:21 | PROVIDERS: ATTEND Internal Medicine Nephrology | DX: N18.6 End stage renal disease (principal) | CPT/HCPCS: 84132 ==

== ENCOUNTER 2020-03-06 11:14 | Emergency (ER) | payer MEDICARE, MEDICAID ==
--- NOTE | 2020-03-06 11:33 | ER Document Report ---
ED Medical Screen (RME) - General Chief Complaint: Abnormal Lab Results Stated Complaint: ABNORMAL LABS Time Seen by Provider: 03/06/20 11:25 Primary Care Provider: BIBI MENDEZ MD [Primary Care Provider] - Follow up as needed Notes: Patient is a 54-year-old male who presents emergency department with abnormal labs from his primary care provider. His creatinine was elevated. Potassium is normal. Patient is an end-stage renal disease patient on hemodialysis. Patient goes to dialysis Monday, Monday, and Monday. Patient states that he has not missed any treatments of dialysis. Patient denies any symptoms. Exam: S1, S2. I have greeted and performed a rapid initial assessment of this patient. A comprehensive ED assessment and evaluation of the patient, analysis of test results and completion of medical decision making process will be conducted by an additional ED providers. TRAVEL OUTSIDE OF THE [place] IN LAST 30 DAYS: No - Related Data Allergies/Adverse Reactions: No Known Allergies Allergy (Verified 03/06/20 11:22) Past Medical History - Social History Chew tobacco use (# tins/day): No Frequency of alcohol use: None Drug Abuse: None - Past Medical History Cardiac Medical History: Reports: Hx Congestive Heart Failure, Hx Hypertension Denies: Hx Coronary Artery Disease, Hx Heart Attack Pulmonary Medical History: Denies: Hx Asthma, Hx Bronchitis, Hx COPD, Hx Pneumonia Neurological Medical History: Denies: Hx Cerebrovascular Accident, Hx Seizures Renal/ Medical History: Denies: Hx Peritoneal Dialysis Musculoskeltal Medical History: Denies Hx Arthritis - Immunizations Immunizations up to date: No Hx Diphtheria, Pertussis, Tetanus Vaccination: Yes Physical Exam - Vital signs Vitals: Temp Pulse Resp BP Pulse Ox 98.9 F 109 H 16 182/110 H 97 03/06/20 11:17 03/06/20 11:17 03/06/20 11:17 03/06/20 11:17 03/06/20 11:17 Course - Vital Signs Vital signs: Temp Pulse Resp BP Pulse Ox 98.9 F 109 H 16 182/110 H 97 03/06/20 11:17 03/06/20 11:17 03/06/20 11:17 03/06/20 11:17 03/06/20 11:17 Doctor's Discharge - Discharge Referrals: BIBI MENDEZ MD [Primary Care Provider] - Follow up as needed
[2020-03-06 11:49] VITALS: BP 171/107
--- NOTE | 2020-03-06 11:50 | ER Document Report ---
ED General - General Chief Complaint: Abnormal Lab Results Stated Complaint: ABNORMAL LABS Time Seen by Provider: 03/06/20 11:25 Primary Care Provider: BIBI MENDEZ MD [Primary Care Provider] - Follow up as needed Notes: CHIEF COMPLAINT: Medical evaluation HPI: 54-year-old male with a history of end-stage renal disease who is on dialysis Monday and follows with Dr. Thompson sent over by his primary care provider for an elevated creatinine. This apparently came up on screening lab work done through the primary care office. Patient states he was called and told he had to come to the emergency department today he has dialysis scheduled this afternoon. Patient has no physical complaints at this time ROS: See HPI - all other systems were reviewed and are otherwise negative Constitutional: no fever Eyes: no drainage, no blurred vision ENT: no runny nose, no sore throat Cardiovascular: no chest pain Resp: no SOB, no cough GI: no vomiting, no diarrhea, no abdominal pain : no dysuria Integumentary: no rash Allergy: no hives Musculoskeletal: no extremity pain or swelling Neurological: no numbness/tingling, no weakness MEDICATIONS: I agree with the patient medications as charted by the RN. ALLERGIES: I agree with the allergies as charted by the RN. PAST MEDICAL HISTORY/PAST SURGICAL HISTORY: Reviewed and agree as charted by RN. SOCIAL HISTORY: Reviewed and agree as charted by RN. FAMILY HISTORY: No significant familial comorbid conditions directly related to patient complaint EXAM: Reviewed vital signs as charted by RN. CONSTITUTIONAL: Alert and oriented and responds appropriately to questions. Well-appearing; well-nourished HEAD: Normocephalic; atraumatic EYES: PERRL; Conjunctivae clear, sclerae non-icteric ENT: normal nose; no rhinorrhea; moist mucous membranes; pharynx without lesions noted, no uvula edema or deviation, no tonsillar hypertrophy, phonation normal NECK: Supple without meningismus; non-tender; no cervical lymphadenopathy, no masses CARD: Mild tachycardia heart rate 104 apically; no murmurs, no clicks, no rubs, no gallops; symmetric distal pulses RESP: Normal chest excursion without splinting or tachypnea; breath sounds clear and equal bilaterally; no wheezes, no rhonchi, no rales, pulse oximetry 98% on room air not hypoxic ABD/GI: Normal bowel sounds; non-distended; soft, non-tender, no rebound, no guarding; no palpable organomegaly or masses. BACK: The back appears normal and is non-tender to palpation, there is no CVA tenderness EXT: Normal ROM in all joints; non-tender to palpation; no cyanosis, no effusions, no edema. Shunt in the left upper arm with intact thrill and bruit SKIN: Normal color for age and race; warm; dry; good turgor; no acute lesions noted NEURO: Moves all extremities equally; Motor and sensory function intact PSYCH: The patient's mood and manner are appropriate. Grooming and personal hygiene are appropriate. MDM: 54-year-old male who is on hemodialysis 3 times weekly sent over by PCP for elevated creatinine of 8.8. He has no physical complaints at this time. No chest pain. No shortness of breath. No abdominal pain nausea vomiting or fever. Patient does not understand why he was told to come over to the emergency department. He has dialysis scheduled this afternoon. As he has no physical complaints at this time will cancel screening triage orders, discharge patient to go to dialysis. discussed with Dr. Payne, attending TRAVEL OUTSIDE OF THE [place] IN LAST 30 DAYS: No - Related Data Allergies/Adverse Reactions: No Known Allergies Allergy (Verified 03/06/20 11:22) Past Medical History - Social History Smoking Status: Current Every Day Smoker Chew tobacco use (# tins/day): No Frequency of alcohol use: None Drug Abuse: None Family History: CAD, COPD Patient has homicidal ideation: No - Past Medical History Cardiac Medical History: Reports: Hx Congestive Heart Failure, Hx Hypertension Denies: Hx Coronary Artery Disease, Hx Heart Attack Pulmonary Medical History: Denies: Hx Asthma, Hx Bronchitis, Hx COPD, Hx Pneumonia Neurological Medical History: Denies: Hx Cerebrovascular Accident, Hx Seizures Renal/ Medical History: Denies: Hx Peritoneal Dialysis Musculoskeletal Medical History: Denies Hx Arthritis - Immunizations Immunizations up to date: No Hx Diphtheria, Pertussis, Tetanus Vaccination: Yes Hx Pneumococcal Vaccination: 01/17/18 Physical Exam - Vital signs Vitals: Temp Pulse Resp BP Pulse Ox 98.9 F 109 H 16 182/110 H 97 03/06/20 11:17 03/06/20 11:17 03/06/20 11:17 03/06/20 11:17 03/06/20 11:17 Course - Vital Signs Vital signs: Temp Pulse Resp BP Pulse Ox 98.9 F 109 H 16 171/107 H 99 03/06/20 11:17 03/06/20 11:17 03/06/20 11:17 03/06/20 11:42 03/06/20 11:46 - Laboratory Result Diagrams: 03/06/20 11:35 03/06/20 11:35 Discharge - Discharge Clinical Impression: Encounter for medical screening examination, ESRD (end stage renal disease) on dialysis HTN (hypertension) Qualifiers: Hypertension type: essential hypertension Qualified Code(s): I10 - Essential (primary) hypertension Condition: Stable Disposition: HOME, SELF-CARE Additional Instructions: Go directly to your dialysis appointment as scheduled. Referrals: BIBI MENDEZ MD [Primary Care Provider] - Follow up as needed
[2020-03-06 12:00] LABS: ABSOLUTE EOSINOPHILS # (AUTO) 0.2 10^3/uL (0.0-0.6); ABSOLUTE LYMPHOCYTES (AUTO) 2.1 10^3/uL (0.5-4.7); ABSOLUTE MONOCYTES (AUTO) 0.6 10^3/uL (0.1-1.4); ABSOLUTE NEUT (AUTO) 3.7 10^3/uL (1.7-8.2); BASOPHILS % (AUTO) 0.4 % (0-2); EOSINOPHILS % (AUTO) 3.1 % (0-6); HEMATOCRIT 39.2 % (37.9-51.0); HEMOGLOBIN 13.4 g/dL (13.5-17.0); LYMPHOCYTES % (AUTO) 31.3 % (13-45); MEAN CORPUSCULAR HEMOGLOBIN 33.9 pg (27.0-33.4); MEAN CORPUSCULAR HGB CONC 34.3 g/dL (32.0-36.0); MEAN CORPUSCULAR VOLUME 99 fl (80-97); MONOCYTES % (AUTO) 8.9 % (3-13); PLATELET COUNT 237 10^3/uL (150-450); RED BLOOD COUNT 3.97 10^6/uL (4.35-5.55); RED CELL DISTRIBUTION WIDTH 14.7 % (11.5-14.0); SEGMENTED NEUTROPHILS % (AUTO) 56.3 % (42-78); TOTAL CELLS COUNTED % (AUTO) 100 %; WHITE BLOOD COUNT 6.6 10^3/uL (4.0-10.5)
[2020-03-06 12:04] LABS: ALBUMIN 4.9 g/dL (3.5-5.0); ALKALINE PHOSPHATASE 68 U/L (38-126); ANION GAP 16 (5-19); ASPARTATE AMINO TRANSFERASE 33 U/L (17-59); BILIRUBIN,DIRECT 0.4 mg/dL (0.0-0.4); BILIRUBIN,TOTAL 0.7 mg/dL (0.2-1.3); BLOOD UREA NITROGEN 57 mg/dL (7-20); CALCIUM 9.8 mg/dL (8.4-10.2); CARBON DIOXIDE 28 mmol/L (22-30); CHLORIDE 95 mmol/L (98-107); GLUCOSE 110 mg/dL (75-110); TOTAL PROTEIN 8.3 g/dL (6.3-8.2)
--- NOTE | 2020-03-06 20:21 | EKG REPORT ---
SEVERITY:- ABNORMAL ECG - SINUS RHYTHM FIRST DEGREE AV BLOCK PROBABLE LEFT ATRIAL ABNORMALITY LEFT ANTERIOR FASCICULAR BLOCK PROBABLE LEFT VENTRICULAR HYPERTROPHY ST ELEVATION, CHRONIC : Confirmed by: Taj Huddleston MD 06-Mar-2020 20:21:14
== END 2020-03-06 11:59 | disposition home or self-care (01) ==
LOC: ER 11:14
DX: I13.2 Hypertensive heart and chronic kidney disease with heart failure and with stage 5 chronic kidney disease, or end stage renal disease (principal); N18.6 End stage renal disease; I50.9 Heart failure, unspecified; Z99.2 Dependence on renal dialysis; F17.200 Nicotine dependence, unspecified, uncomplicated
CPT/HCPCS: 36415; 80053; 85025; 93005; 93010; 99283